=== PATIENT | female | born 1965 | race Caucasian/White ===

== ENCOUNTER 2016-11-11 00:13 | Emergency (ER) | payer OTHER ==
[2016-11-11 00:35] VITALS: BP 119/79; PULSE 88; RESP 18; TEMP 97.9
[2016-11-11] MEDS ORDERED: HYDROcodone/APAP 5-325MG 1 EACH TAB PO STA (00:59)
--- NOTE | 2016-11-11 00:59 | ED ---
Upper Extremity HPI - General Chief Complaint: Extremity Injury, Upper Stated Complaint: Hand Injury Time Seen by Provider: 11/11/16 00:37 Source: patient, RN notes reviewed Mode of arrival: ambulatory Limitations: no limitations - History of Present Illness Initial Comments: 51-year-old female presents emergency Department chief complaint right hand injury. Patient states that she was upset at home and she punched the door. Patient is right-hand dominant. Patient states that she's had no previous injuries. Patient states that it is very painful, bruised and swollen. Patient offers no other points. - Related Data Previous Rx's Medication Instructions Recorded Hydrocodone/Acetaminophen [Lorraine 1 tab PO Q6HR PRN #15 tab 11/11/16 5-325] Allergies Allergy/AdvReac Type Severity Reaction Status Date / Time Sulfa (Sulfonamide Allergy Unknown Verified 08/07/16 10:36 Antibiotics) steroids Allergy Unknown Uncoded 08/07/16 10:36 Review of Systems ROS Statement: Those systems with pertinent positive or pertinent negative responses have been documented in the HPI. ROS Other: All systems not noted in ROS Statement are negative. Past Medical History Past Medical History: No Reported History History of Any Multi-Drug Resistant Organisms: None Reported Past Surgical History: Appendectomy, Hysterectomy Past Psychological History: No Psychological Hx Reported Smoking Status: Current every day smoker Past Alcohol Use History: None Reported Past Drug Use History: None Reported General Exam Limitations: no limitations General appearance: alert, in no apparent distress Head exam: Present: atraumatic, normocephalic, normal inspection Respiratory exam: Present: normal lung sounds bilaterally. Absent: respiratory distress, wheezes, rales, rhonchi, stridor Cardiovascular Exam: Present: regular rate, normal rhythm, normal heart sounds. Absent: systolic murmur, diastolic murmur, rubs, gallop, clicks Extremities exam: Present: other (Right hand there is a large area of ecchymosis over the third fourth and fifth metacarpal there is some swelling patient has decreased range of motion of the fourth and fifth digit secondary to pain Reflux and 2 seconds there is no wrist tenderness radial pulses equal bilaterally 2+) Course Vital Signs 11/11/16 00:31 Temperature 97.9 F Pulse Rate 88 Respiratory 18 Rate Blood Pressure 119/79 O2 Sat by Pulse 100 Oximetry Procedures - Orthopedic Splinting/Casting Injury #1 Side: right Upper Extremity Injury Location: hand Upper Extremity Immobilizer: ulnar gutter (Short arm neurovascular intact before and after procedure) Medical Decision Making - Medical Decision Making 51-year-old female presented for right hand injury. X-rays reviewed shows fracture of the fifth metacarpal. Patient has a boxer's fracture. She was splinted and will follow-up with Dr. Barreto orthopedics. Disposition Clinical Impression: Boxers fracture Disposition: HOME SELF-CARE Condition: Stable Instructions: Boxer Fracture (ED) Additional Instructions: Please wear splint and follow-up with orthopedics as directed.Please return to the Emergency Department if symptoms worsen or any other concerns. Prescriptions: Hydrocodone/Acetaminophen [Lorraine 5-325] 1 tab PO Q6HR PRN #15 tab PRN Reason: Pain Referrals: None,Stated [Primary Care Provider] - 1-2 days Nitin Kelly MD [STAFF PHYSICIAN] - 1-2 days Time of Disposition: 00:58
--- NOTE | 2016-11-11 02:53 | XR ---
EXAMINATION TYPE: XR hand complete RT DATE OF EXAM: 11/11/2016 12:50 AM COMPARISON: NONE HISTORY: Right hand injury after punching a door TECHNIQUE: 3 radiographs of right hand were obtained. FINDINGS: There is evidence of acute slightly displaced fracture of neck of the right fifth metacarpa l bone, boxer's fracture with surrounding soft tissue swelling with volar angulation of distal fractu re fragment.. Mild degenerative arthritic changes are present in the right hand. IMPRESSION: 1. Acute slightly displaced fracture neck of right fifth metacarpal bone with surrounding soft tissue swelling.
== END 2016-11-11 01:12 | disposition home or self-care (01) ==
LOC: EC 00:13
DX: S62.336A Displaced fracture of neck of fifth metacarpal bone, right hand, initial encounter for closed fracture (principal); X83.8XXA Intentional self-harm by other specified means, initial encounter; F17.200 Nicotine dependence, unspecified, uncomplicated; Z88.2 Allergy status to sulfonamides; Z88.8 Allergy status to other drugs, medicaments and biological substances
CPT/HCPCS: 29125; 99283

== ENCOUNTER 2017-03-28 13:52 | Observation (INO) | payer OTHER ==
[2017-03-28] MEDS ORDERED: ASPIRIN 81 MG CHEW PO STA (13:59)
[2017-03-28] MEDS ORDERED: NITROGLYCERIN OINT 1 INCH/GM PACKET TOPICAL STA (13:59)
--- NOTE | 2017-03-28 14:02 | ED ---
General Adult HPI - General Stated complaint: Chest Pain Time Seen by Provider: 03/28/17 13:52 Source: RN notes reviewed - History of Present Illness Initial comments: This is a 51-year-old female who presents emergency Department with a history of smoking and cocaine use 2 weeks ago. Patient comes in today complaining that she has chest tightness and tingling in her chest and both her arms. Patient states this is been ongoing for a week. Patient doesn't seem to what makes it come or go. Patient states today it got worse and she almost passed out she actually fell to the ground but never actually passed out. Patient states a lot of people are telling her it's anxiety but she's never had anxiety before. Patient denies any palpitations. Patient denies any actual pain. Patient denies abdominal pain patient denies nausea vomiting diarrhea. Patient denies any recent fever chills or cough. Patient denies any injury with the fall today. - Related Data Home Medications Medication Instructions Recorded Confirmed Cyclobenzaprine [Flexeril] 10 mg PO BID PRN 03/28/17 03/28/17 Hydrocodone/Acetaminophen [[place] 1 tab PO TID PRN 03/28/17 03/28/17 10-325 Tablet] Ibuprofen [Motrin] 800 mg PO TID PRN 03/28/17 03/28/17 Allergies Allergy/AdvReac Type Severity Reaction Status Date / Time Sulfa (Sulfonamide Allergy Unknown Verified 03/28/17 15:21 Antibiotics) steroids Allergy Unknown Uncoded 03/28/17 13:56 Review of Systems ROS Statement: Those systems with pertinent positive or pertinent negative responses have been documented in the HPI. ROS Other: All systems not noted in ROS Statement are negative. Past Medical History Past Medical History: No Reported History History of Any Multi-Drug Resistant Organisms: None Reported Past Surgical History: Appendectomy, Hysterectomy Past Psychological History: No Psychological Hx Reported Smoking Status: Current every day smoker Past Alcohol Use History: None Reported Past Drug Use History: None Reported General Exam - General Exam Comments Initial Comments: GENERAL: Patient is well-developed and well-nourished. Patient is nontoxic and well- hydrated and is in mild distress. ENT: Neck is soft and supple. No significant lymphadenopathy is noted. Oropharynx is clear. Moist mucous membranes. Neck has full range of motion without eliciting any pain. EYES: The sclera were anicteric and conjunctiva were pink and moist. Extraocular movements were intact and pupils were equal round and reactive to light. Eyelids were unremarkable. PULMONARY: Unlabored respirations. Good breath sounds bilaterally. No audible rales rhonchi or wheezing was noted. CARDIOVASCULAR: There is a regular rate and rhythm without any murmurs gallops or rubs. ABDOMEN: Soft and nontender with normal bowel sounds. SKIN: Skin is clear with no lesions or rashes and otherwise unremarkable. NEUROLOGIC: Patient is alert and oriented x3. Cranial nerves II through XII are grossly intact. Motor and sensory are also intact. Normal speech, volume and content. Symmetrical smile. MUSCULOSKELETAL: Normal extremities with adequate strength and full range of motion. No lower extremity swelling or edema. No calf tenderness. LYMPHATICS: No significant lymphadenopathy is noted PSYCHIATRIC: Normal psychiatric evaluation. Normal interpersonal interactions appears functionally intact in deals appropriately with others. Mild anxiety Course Vital Signs 03/28/17 03/28/17 03/28/17 13:56 14:01 14:08 Temperature 98.1 F Pulse Rate 80 73 Pulse Rate [ 80 Sheet Layer ] Respiratory 18 18 Rate Blood Pressure 108/56 112/68 O2 Sat by Pulse 95 98 Oximetry 03/28/17 16:15 Temperature Pulse Rate 65 Pulse Rate [ Sheet Layer ] Respiratory 18 Rate Blood Pressure 108/63 O2 Sat by Pulse 96 Oximetry Medical Decision Making - Medical Decision Making EKG shows a normal sinus rhythm at 77 bpm TX interval is on a 62 QRS is 88 QT interval 410 QTC is 463. Patient's EKG shows no ST segment elevation or depression or T-wave abdomen is noted. Chest x-ray showed a possible nodule in the left lower lung CT did not see the same nodule and was clear. - Lab Data Result diagrams: 03/28/17 13:50 03/28/17 13:50 Lab Results 03/28/17 03/28/17 03/28/17 Range/Units 13:50 13:50 13:50 WBC 4.1 (3.8-10.6) k/uL RBC 4.10 (3.80-5.40) m/uL Hgb 12.9 (11.4-16.0) gm/dL Hct 37.8 (34.0-46.0) % MCV 92.2 (80.0-100.0) fL MCH 31.5 (25.0-35.0) pg MCHC 34.1 (31.0-37.0) g/dL RDW 13.0 (11.5-15.5) % Plt Count 227 (150-450) k/uL Neutrophils % 54 % Lymphocytes % 33 % Monocytes % 5 % Eosinophils % 5 % Basophils % 0 % Neutrophils # 2.2 (1.3-7.7) k/uL Lymphocytes # 1.4 (1.0-4.8) k/uL Monocytes # 0.2 (0-1.0) k/uL Eosinophils # 0.2 (0-0.7) k/uL Basophils # 0.0 (0-0.2) k/uL PT (9.0-12.0) sec INR (<1.1) APTT (22.0-30.0) sec D-Dimer (<0.60) mg/L FEU Sodium 142 (137-145) mmol/L Potassium 3.8 (3.5-5.1) mmol/L Chloride 113 H (98-107) mmol/L Carbon Dioxide 23 (22-30) mmol/L Anion Gap 6 mmol/L BUN 14 (7-17) mg/dL Creatinine 0.87 (0.52-1.04) mg/dL Est GFR (MDRD) Af Amer >60 (>60 ml/min/1.73 sqM) Est GFR (MDRD) Non-Af >60 (>60 ml/min/1.73 sqM) Glucose 112 H (74-99) mg/dL Calcium 9.4 (8.4-10.2) mg/dL Magnesium 1.9 (1.6-2.3) mg/dL Total Bilirubin 0.5 (0.2-1.3) mg/dL AST 18 (14-36) U/L ALT 20 (9-52) U/L Alkaline Phosphatase 113 (38-126) U/L Total Creatine Kinase 74 (30-135) U/L CK-MB (CK-2) 0.6 (0.0-2.4) ng/mL CK-MB (CK-2) Rel Index 0.8 Troponin I <0.012 (0.000-0.034) ng/mL Total Protein 6.0 L (6.3-8.2) g/dL Albumin 3.4 L (3.5-5.0) g/dL Urine Opiates Screen (NotDetected) Ur Oxycodone Screen (NotDetected) Urine Methadone Screen (NotDetected) Ur Propoxyphene Screen (NotDetected) Ur Barbiturates Screen (NotDetected) U Tricyclic Antidepress (NotDetected) Ur Phencyclidine Scrn (NotDetected) Ur Amphetamines Screen (NotDetected) U Methamphetamines Scrn (NotDetected) U Benzodiazepines Scrn (NotDetected) Urine Cocaine Screen (NotDetected) U Marijuana (THC) Screen (NotDetected) Hepatitis A IgM Ab NEGATIVE Hep Bs Antigen Negative Hep B Core IgM Ab NEGATIVE Hep C IgG Ab Negative (Negative) 03/28/17 03/28/17 Range/Units 13:50 14:30 WBC (3.8-10.6) k/uL RBC (3.80-5.40) m/uL Hgb (11.4-16.0) gm/dL Hct (34.0-46.0) % MCV (80.0-100.0) fL MCH (25.0-35.0) pg MCHC (31.0-37.0) g/dL RDW (11.5-15.5) % Plt Count (150-450) k/uL Neutrophils % % Lymphocytes % % Monocytes % % Eosinophils % % Basophils % % Neutrophils # (1.3-7.7) k/uL Lymphocytes # (1.0-4.8) k/uL Monocytes # (0-1.0) k/uL Eosinophils # (0-0.7) k/uL Basophils # (0-0.2) k/uL PT 10.4 (9.0-12.0) sec INR 1.0 (<1.1) APTT 29.4 (22.0-30.0) sec D-Dimer 0.42 (<0.60) mg/L FEU Sodium (137-145) mmol/L Potassium (3.5-5.1) mmol/L Chloride (98-107) mmol/L Carbon Dioxide (22-30) mmol/L Anion Gap mmol/L BUN (7-17) mg/dL Creatinine (0.52-1.04) mg/dL Est GFR (MDRD) Af Amer (>60 ml/min/1.73 sqM) Est GFR (MDRD) Non-Af (>60 ml/min/1.73 sqM) Glucose (74-99) mg/dL Calcium (8.4-10.2) mg/dL Magnesium (1.6-2.3) mg/dL Total Bilirubin (0.2-1.3) mg/dL AST (14-36) U/L ALT (9-52) U/L Alkaline Phosphatase (38-126) U/L Total Creatine Kinase (30-135) U/L CK-MB (CK-2) (0.0-2.4) ng/mL CK-MB (CK-2) Rel Index Troponin I (0.000-0.034) ng/mL Total Protein (6.3-8.2) g/dL Albumin (3.5-5.0) g/dL Urine Opiates Screen Not Detected (NotDetected) Ur Oxycodone Screen Not Detected (NotDetected) Urine Methadone Screen Not Detected (NotDetected) Ur Propoxyphene Screen Not Detected (NotDetected) Ur Barbiturates Screen Not Detected (NotDetected) U Tricyclic Antidepress Not Detected (NotDetected) Ur Phencyclidine Scrn Not Detected (NotDetected) Ur Amphetamines Screen Not Detected (NotDetected) U Methamphetamines Scrn Not Detected (NotDetected) U Benzodiazepines Scrn Not Detected (NotDetected) Urine Cocaine Screen Detected H (NotDetected) U Marijuana (THC) Screen Not Detected (NotDetected) Hepatitis A IgM Ab Hep Bs Antigen Hep B Core IgM Ab Hep C IgG Ab (Negative) Disposition Clinical Impression: Chest pain Disposition: ADMITTED IP TO THIS HOSP Referrals: None,Stated [Primary Care Provider] - 1-2 days Time of Disposition: 16:49
--- NOTE | 2017-03-28 14:38 | XR ---
EXAMINATION TYPE: XR chest 2V DATE OF EXAM: 03/28/2017 2:25 PM COMPARISON: 06/04/2016 HISTORY: Chest tightness TECHNIQUE: Frontal and lateral views of the chest are obtained. FINDINGS: There is no heart failure. There is a 1.5 cm poorly marginated rounded infiltrate in the r ight lower lobe. The other lung gordon are clear. There are no hilar masses. There are chest leads. M ediastinum is normal. There is no sign of pleural effusion. Bones appear osteopenic.. IMPRESSION: There is a new rounded infiltrate in the right lower lobe compared to last exam. Normal heart.
[2017-03-28 14:40] LABS: Basophils % (A) 0 %; CH 30.9; CHCM 33.7; Eosinophils # (A) 0.2 k/uL (0-0.7); Eosinophils % (A) 5 %; HCT 37.8 % (34.0-46.0); HDW 2.62; HGB 12.9 gm/dL (11.4-16.0); Luc # (Auto) 0.08; Luc % (Auto) 2; Lymphocytes # (A) 1.4 k/uL (1.0-4.8); Lymphocytes % (A) 33 %; MCH 31.5 pg (25.0-35.0); MCHC 34.1 g/dL (31.0-37.0); MCV 92.2 fL (80.0-100.0); Mean Platelet Volume 7.3; Monocytes # (A) 0.2 k/uL (0-1.0); Monocytes % (A) 5 %; Neutrophils # (A) 2.2 k/uL (1.3-7.7); Neutrophils % (A) 54 %; WBC 4.1 k/uL (3.8-10.6); WBC (Perox) 4.42
[2017-03-28 14:51] LABS: ALT 20 U/L (9-52); AST 18 U/L (14-36); Alkaline Phosphatase 113 U/L (38-126); Anion Gap 6 mmol/L; Blood Urea Nitrogen 14 mg/dL (7-17); Calcium 9.4 mg/dL (8.4-10.2); Carbon Dioxide 23 mmol/L (22-30); Chloride 113 mmol/L (98-107); Glucose 112 mg/dL (74-99); Magnesium 1.9 mg/dL (1.6-2.3); Non-African American GFR(MDRD) >60 (>60 ml/min/1.73 sqM); Partial Thromboplastin Time 29.4 sec (22.0-30.0); Potassium 3.8 mmol/L (3.5-5.1); Prothrombin Time 10.4 sec (9.0-12.0); Sodium 142 mmol/L (137-145); Total Bilirubin 0.5 mg/dL (0.2-1.3)
[2017-03-28 15:05] LABS: Creatine Kinase 74 U/L (30-135)
[2017-03-28 15:18] LABS: Creatine Kinase MB 0.6 ng/mL (0.0-2.4); Troponin I <0.012 ng/mL (0.000-0.034)
[2017-03-28 15:19] LABS: Hepatitis B Surface Ag Index 0.08
[2017-03-28 15:24] LABS: Hepatitis B Core IgM Index 0.09
[2017-03-28 15:36] LABS: Hepatitis C Virus IgG Ab Negative (Negative); Hepatitis C Virus IgG Index 0.04
[2017-03-28] MEDS ORDERED: RX INFO: IV CONTRAST WAS GIVEN 1 EACH MISC MISCELLANE PRN (15:55)
--- NOTE | 2017-03-28 16:30 | CT ---
EXAMINATION TYPE: CT chest w con DATE OF EXAM: 03/28/2017 4:23 PM COMPARISON: NONE HISTORY: Abnormal CXR CT DLP: 165.6 mGycm Automated exposure control for dose reduction was used. CONTRAST: CT scan of the chest is performed with IV Contrast, patient injected with 100 mL of Omnipaque 300. FINDINGS: The lungs are clear of consolidation. There is no evidence of a pulmonary mass. There is no mediastin al adenopathy. There are no hilar masses. Thoracic aorta appears normal. There is no sign of aneurysm or dissection. There is no pleural effusion. There is mild interstitial density at the posterior melany g bases. There is no adrenal mass. Gallbladder is contracted. IMPRESSION: Minimal scarring or subsegmental atelectasis at the posterior lung bases. No evidence of a pulmonary nodule or mass. I do not see a cause for the right lower lobe density seen on the chest x-ray today.
[2017-03-28] MEDS ORDERED: NICOTINE 21MG/24HR PATCH TRANSDERM STA (16:43)
[2017-03-28] MEDS ORDERED: LORazepam 2 MG/ML SYRINGE IV STA (16:43)
[2017-03-28] MEDS ORDERED: NITROGLYCERIN SL TABS 0.4 MG TAB SUBLINGUAL PRN (17:04)
[2017-03-28] MEDS ORDERED: CYCLOBENZAPRINE 10 MG TAB PO PRN (19:04)
[2017-03-28] MEDS ORDERED: MORPHINE SULFATE 2 MG/ML SYRINGE IVP PRN (19:07)
[2017-03-28 19:32] VITALS: BMI 26.8
[2017-03-28] MEDS: NITROGLYCERIN OINT 1 INCH/GM PACKET TOPICAL SCH ×2 (19:44→23:45)
[2017-03-28 20:08] VITALS: RESP 16
[2017-03-28 20:39] LABS: Creatine Kinase 60 U/L (30-135)
[2017-03-28 20:51] LABS: Creatine Kinase MB 0.7 ng/mL (0.0-2.4); Troponin I <0.012 ng/mL (0.000-0.034)
[2017-03-28] MEDS: HYDROcodone/APAP 10-325MG 1 EACH TAB PO PRN (23:43)
[2017-03-29 03:04] LABS: Creatine Kinase 54 U/L (30-135)
[2017-03-29 03:16] LABS: Creatine Kinase MB 0.6 ng/mL (0.0-2.4); Troponin I <0.012 ng/mL (0.000-0.034)
[2017-03-29] MEDS: NITROGLYCERIN OINT 1 INCH/GM PACKET TOPICAL SCH ×2 (05:28→14:10)
[2017-03-29 06:48] LABS: Cholesterol 177 mg/dL (<200); HDL Cholesterol 71 mg/dL (40-60); Triglycerides 60 mg/dL (<150)
[2017-03-29] MEDS ORDERED: DOBUTamine DRIP for NUC MED 500 MG in DEXTROSE/WATER 1 250ML.BAG IV ONE (08:00)
--- NOTE | 2017-03-29 08:06 | CONS ---
DATE OF CONSULTATION: CHIEF COMPLAINT: Chest pain. HISTORY OF PRESENT ILLNESS: This is a 51-year-old lady with history of cocaine abuse who comes to the hospital complaining of chest pain. She describes it as a chest pressure without definite radiation to neck, arm or back unassociated with diaphoresis and unrelated to exertion. She is not quite sure when she last used cocaine. She initially states 2 weeks ago and subsequently she said a week ago. Her urine cocaine is positive. Past medical history is negative for hypertension, diabetes, dyslipidemia, coronary artery disease. Medications at home include: 1. [place]. 2. Flexeril. 3. Motrin. Patient has chronic back pain. SHE IS ALLERGIC TO SULFA AND STEROIDS. Family history is negative for premature coronary artery disease. SOCIAL HISTORY: Significant for smoking and drug abuse. REVIEW OF SYSTEMS: HEENT: Unremarkable. CARDIAC: As described above. RESPIRATORY: Negative. GI: Negative. GENITOURINARY: Negative. Allergy/immunology: Negative. SKIN: Negative. MUSCULOSKELETAL: Significant for arthritis. PSYCHOSOCIAL: Negative. ENDOCRINE: Negative. DERM: Negative. CONSTITUTIONAL: Negative. Oncological: Negative. The rest of the system review is not relevant. On exam, comfortable at rest. Vital signs are stable. There is no jugular venous distention. Carotid upstroke is normal. There is no bruit. Chest is clear to auscultation and percussion. Heart exam reveals first and second heart sounds. No gallop. No murmur, no rub. ABDOMEN: Soft, nontender. Exam of the extremities did not reveal edema. Peripheral pulses are felt. STAFF RADIOLOGIST exam did not reveal focal neurological deficits. Labs show a hemoglobin of 12.9, platelet count is 227. D-dimer is 0.4. Creatinine is 0.87. Three sets of tropes are negative. ASSESSMENT: Precordial chest pain, atypical, probably related to cocaine use. Myocardial infarction is ruled out. EKG does not reveal acute ischemic changes. CT scan of the chest is negative for pulmonary mass. PLAN: I am going to obtain a dobutamine echocardiogram and if this is negative, I am going to discharge her home and advise her to stop using drugs.
[2017-03-29] MEDS ORDERED: ASPIRIN 325 MG TAB PO SCH (09:00)
[2017-03-29] MEDS ORDERED: ATROPINE SULFATE 0.1 MG/ML 10ML SYRINGE ONE (09:53)
[2017-03-29] MEDS ORDERED: METOPROLOL TARTRATE 5 MG/5 ML VIAL IVP ONE (09:53)
[2017-03-29] MEDS: HYDROcodone/APAP 10-325MG 1 EACH TAB PO PRN (10:10)
--- NOTE | 2017-03-29 10:53 | ECHOF ---
Referral Reason: MEASUREMENTS -------- HEIGHT: 165.1 cm WEIGHT: 73.0 kg BP: IVSd: 1.1 cm (0.6 - 1.1) LVIDd: 3.7 cm (3.9 - 5.3) LVPWd: 1.1 cm (0.6 - 1.1) IVSs: 1.6 cm LVIDs: 2.0 cm LVPWs: 1.4 cm Ao Diam: 2.8 cm (2.0 - 3.7) AV Cusp: 1.6 cm (1.5 - 2.6) LA Diam: 3.2 cm (2.7 - 3.8) MV EXCURSION: 11.800 mm (> 18.000) MV EF SLOPE: 79 mm/s (70 - 150) EPSS: 0.5 cm MV E Randy: 0.68 m/s MV DecT: 168 ms MV A Randy: 0.64 m/s MV E/A Ratio: 1.06 RAP: 5.00 mmHg RVSP: 19.38 mmHg FINDINGS -------- Sinus rhythm. This was a technically good study. Left ventricular wall thickness is normal. Overall left ventricular systolic function is normal with, an EF between 55 - 60 %. The right ventricle is normal in size and function. The left atrium is normal in size. The right atrium is normal in size. The aortic valve is trileaflet, and appears structurally normal. No aortic stenosis or regurgitation. The mitral valve leaflets are mildly thickened. There is trace mitral regurgitation. Trace tricuspid regurgitation present. The right ventricular systolic pressure, as measured by Doppler, is 19.38mmHg. Pulmonic valve appears structurally normal. The aortic root size is normal. The pericardium is normal. CONCLUSIONS -------- 1. Sinus rhythm. 2. There is trace mitral regurgitation. 3. Trace tricuspid regurgitation present. 4. The right ventricular systolic pressure, as measured by Doppler, is 19.38mmHg. 5. Pulmonic valve appears structurally normal. 6. The aortic root size is normal. 7. The pericardium is normal. 8. This was a technically good study. 9. Left ventricular wall thickness is normal. 10. Overall left ventricular systolic function is normal with, an EF between 55 - 60 %. 11. The right ventricle is normal in size and function. 12. The left atrium is normal in size. 13. The right atrium is normal in size. 14. The aortic valve is trileaflet, and appears structurally normal. No aortic stenosis or regurgitation. 15. The mitral valve leaflets are mildly thickened. DRAIN TILE PRESS OPERATOR: Yris Baker RDCS
--- NOTE | 2017-03-29 11:03 | ECHOS ---
DATE OF SERVICE: 03/29/2017 AGE: 51Y SEX: F HT: 65" WT: 161 lbs. Protocol Fernando: Others: Stress Dobutamine Echo Stage: 3 Dur. of Exercise: 6:30 *Heart Rate Blood Pressure *Rest: 73 Rest: 92/67 * *Max. Achieved: 157 Maximum BP: 128/64 85% PMHR: 143 100% PMHR: 168 *METS: - INDICATIONS: Chest pain. MEDICATIONS: Flexeril, Motrin, Vicodin. STRESS DATA: Pretesting physical examination showed the heart rate of 73, pressure is 92/67 mmHg. Baseline EKG showed sinus mechanism. Dobutamine infusion, at a dose of 10 mcg/kg per minute was initiated and increased to 29 kg/min. The patient achieved a max heart rate of 157, which is about 93% of maximum predicted heart rate. Maximum blood pressure was 128/64 mmHg. Clinically, the patient did not have any symptoms of chest pain or discomfort during the testing or in the recovery time. The EKG did not show any significant ST or T-wave abnormalities consistent with ischemia. ECHOCARDIOGRAM IMAGES: On echocardiogram images from parasternal long axis view, parasternal short axis view, apical 4 chamber and apical 2 chamber view were obtained as the baseline images, at the peak of the heart rate, as well as on recovery and the echocardiogram images showed good augmentation in the left ventricular systolic function. CONCLUSION: 1. Normal EKG in response to dobutamine. 2. Normal echocardiogram in response to dobutamine.
[2017-03-29 11:23] VITALS: BP 119/87; PULSE 74; TEMP 97.9
--- NOTE | 2017-03-29 19:12 | HP ---
DATE OF ADMISSION: 03/28/2017 This dictation is both H&P and discharge summary. HISTORY AND PHYSICAL EXAMINATION/DISCHARGE SUMMARY: 51-year-old came in with complaints of chest pain across the chest. Patient did use cocaine about 4 days ago before this onset of these symptoms probably not related to cocaine and associated with diaphoresis and lightheadedness and patient was not doing anything, nonexertional chest pain, nonpleuritic in nature, not associated with food. D-dimer is negative. Chest x-ray did not show any pneumonic process. The patient is a smoker. Quit smoking recently. Has been doing well regarding that. Patient has been coughing since she quit smoking. The patient denied any fever, chills. Patient underwent stress test which was negative. Patient was ruled out acute coronary artery syndrome and patient has reproducible chest pain, probably musculoskeletal in nature. CT of the chest did not show any significant abnormality, d-dimer is negative. Chest pain is nonpleuritic in nature. REVIEW OF SYSTEMS: CONSTITUTIONAL: No fever, no malaise, no fatigue. HEENT: No recent visual problems or hearing problems. Denied any sore throat. CARDIOVASCULAR: as described in HPI. PULMONARY: No shortness of breath, no cough, no hemoptysis. GASTROINTESTINAL: No diarrhea, no nausea, no vomiting, no abdominal pain. Normoactive bowel sounds. NEUROLOGICAL: No headaches, no weakness, no numbness. HEMATOLOGICAL: Denies any bleeding or petechiae. GENITOURINARY: Denies any burning micturition, frequency, or urgency. MUSCULOSKELETAL/RHEUMATOLOGICAL: Denies any joint pain, swelling, or any muscle pain. ENDOCRINE: Denies any polyuria or polydipsia. The rest of the 14 point review of systems is negative. PAST MEDICAL HISTORY: Appendectomy, hysterectomy. Patient does not take any medications at home. SOCIAL HISTORY: The patient does smoke. Quit smoking recently she says. Denied any alcohol abuse. Recent use of cocaine. Denied any IV drug use. PHYSICAL EXAMINATION: Temperature 97.9, pulse of 74, respiratory rate of 16, blood pressure 118/87, saturating at 98% on room air. GENERAL: The patient is alert and oriented x3, not in any acute distress. Well developed, well nourished. HEENT: Pupils are round and equally reacting to light. EOMI. No scleral icterus. No conjunctival pallor. Normocephalic, atraumatic. No pharyngeal erythema. No thyromegaly. CARDIOVASCULAR: S1 and S2 present. No murmurs, rubs, or gallops. PULMONARY: Chest is clear to auscultation, no wheezing or crackles. ABDOMEN: Soft, nontender, nondistended, normoactive bowel sounds. No palpable organomegaly. MUSCULOSKELETAL: No joint swelling or deformity. EXTREMITIES: No cyanosis, clubbing, or pedal edema. NEUROLOGICAL: Gross neurological examination did not reveal any focal deficits. SKIN: No rashes. LABORATORY DATA: CBC, CMP, essentially within normal limits. LDL is not elevated. CT of the chest echocardiogram x-ray was reviewed. No significant abnormality. ASSESSMENT AND PLAN: 1. Chest pain, musculoskeletal in nature, ruled out acute coronary syndrome. Stress test is negative. 2. Cocaine use. Counseling was provided. 3. Chronic low back pain for which patient is already on ibuprofen, hydrocodone and cyclobenzaprine. 4. I do not believe patient has gastroesophageal reflux disease or gastritis. Patient is otherwise clinically doing well and will be discharged today. Will be referred to Dr. Jean Marie Mcdonald to follow up with him in about a week. Activity as tolerated. Regular diet. This dictation is both H&P and discharge summary.
== END 2017-03-29 14:04 | disposition home or self-care (01) ==
LOC: EC 13:52 → 3OBS 17:04
PROVIDERS: ADMIT Internal Medicine; ATTEND Internal Medicine
DX: R07.89 Other chest pain (principal); R07.2 Precordial pain; F14.90 Cocaine use, unspecified, uncomplicated; G89.29 Other chronic pain; F17.200 Nicotine dependence, unspecified, uncomplicated; M54.5 Low back pain; Z88.2 Allergy status to sulfonamides; Z88.8 Allergy status to other drugs, medicaments and biological substances
CPT/HCPCS: 99285; 96374; 96375; 36415; 93005; 93017; 93306; 93350; 85379; 80061; 80053; 80074; 82550 ×2; 82553 ×2; 83735; 84484 ×2; 85025; 85610; 85730; 80306; 71020; 71260; G0378 ×2; S4990; J2060; J1250; J0461; J2270; Q9967

== ENCOUNTER 2018-07-21 13:27 | Emergency (ER) | payer OTHER ==
[2018-07-21 13:31] VITALS: BP 164/89; PULSE 87; RESP 20; TEMP 97.9
[2018-07-21] MEDS ORDERED: ACET/COD 300 MG/30 MG STARTER PACK 6 TAB BTL PO STA (13:42)
[2018-07-21] MEDS ORDERED: KETOROLAC 60 MG/2 ML VIAL IM STA (13:42)
[2018-07-21] MEDS ORDERED: DIAZEPAM 5 MG/ML 2 ML INJ IM STA (13:42)
--- NOTE | 2018-07-21 13:48 | ED ---
Back Pain HPI - General Chief Complaint: Back Pain/Injury Stated Complaint: back pain Time Seen by Provider: 07/21/18 13:32 Source: patient, RN notes reviewed Mode of arrival: ambulatory Limitations: no limitations - History of Present Illness Initial Comments: This a 52-year-old female presents emergency Department chief complaint left low back pain. Patient states she has a history of degenerative disc disease, bulging disc. Patient states that her plan is to go to [facility] in [place]. Patient states that over the last 2-3 days that she's been having worsening symptoms. She states it started after going down some steps and lifting some objects. She denies any bowel incontinence or bladder retention. She has no abdominal pain denies fever or chills. She states pain rates on her left leg has no paresthesias or saddle anesthesias. She states certain positional changes can improve or worsen her symptoms. She states that she has no lower extremity weakness. - Related Data Home Medications Medication Instructions Recorded Confirmed Airborne Packet's 1 packet PO DAILY PRN 08/23/17 08/23/17 Albuterol Inhaler [Ventolin Hfa 2 puff INHALATION RT-Q6H PRN 08/23/17 08/23/17 Inhaler] Ascorbic Acid/Multivit-Min 1,000 mg PO DAILY PRN 08/23/17 08/23/17 [Emergen-C 1,000 mg Packet] Previous Rx's Medication Instructions Recorded Ibuprofen [Motrin] 600 mg PO Q6HR PRN #20 tab 08/23/17 traMADol HCl [Ultram] 50 mg PO Q6H PRN #20 tab 08/23/17 Ibuprofen [Motrin] 600 mg PO Q8HR PRN #30 tab 07/21/18 Orphenadrine [Norflex] 100 mg PO Q12H #14 tablet.er 07/21/18 Allergies Allergy/AdvReac Type Severity Reaction Status Date / Time Sulfa (Sulfonamide Allergy Anaphylaxis Verified 07/21/18 13:31 Antibiotics) steroids AdvReac Confusion Uncoded 07/21/18 13:31 Review of Systems ROS Statement: Those systems with pertinent positive or pertinent negative responses have been documented in the HPI. ROS Other: All systems not noted in ROS Statement are negative. 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, one functioning kidney History of Any Multi-Drug Resistant Organisms: None Reported Past Surgical History: Appendectomy, Hysterectomy Additional Past Surgical History / Comment(s): corn removal Past Anesthesia/Blood Transfusion Reactions: No Reported Reaction Past Psychological History: No Psychological Hx Reported Smoking Status: Current every day smoker Past Alcohol Use History: None Reported Past Drug Use History: Cocaine - Past Family History Mother Sister(s) Family Medical History: Cancer, CVA/TIA Additional Family Medical History / Comment(s): cervicle Father Family Medical History: Coronary Artery Disease (CAD) General Exam Limitations: no limitations General appearance: alert, in no apparent distress Neck exam: Present: normal inspection, full ROM. Absent: tenderness, meningismus, lymphadenopathy Respiratory exam: Present: normal lung sounds bilaterally. Absent: respiratory distress, wheezes, rales, rhonchi, stridor Cardiovascular Exam: Present: regular rate, normal rhythm, normal heart sounds. Absent: systolic murmur, diastolic murmur, rubs, gallop, clicks GI/Abdominal exam: Present: soft, normal bowel sounds. Absent: distended, tenderness, guarding, rebound, rigid Extremities exam: Present: other (Lower extremity strength equal bilaterally, neurovascular intact equal color equal warmth) Back exam: Present: normal inspection, full ROM (Mild discomfort), paraspinal tenderness, other (Pain with left straight leg raise). Absent: vertebral tenderness Neurological exam: Present: alert, oriented X3, CN II-XII intact Skin exam: Present: warm, dry, intact, normal color. Absent: rash Course Vital Signs 07/21/18 13:29 Temperature 97.9 F Pulse Rate 87 Respiratory 20 Rate Blood Pressure 164/89 O2 Sat by Pulse 98 Oximetry Medical Decision Making - Medical Decision Making 52-year-old female presented from for low back pain. Patient is chronic low back issues and has lumbar related His Symptoms. Patient has no red flag symptoms and no lower extremity weakness. Patient will be given Toradol, Valium in the emergency department. Patient will continue ibuprofen and Norflex at home. Disposition Clinical Impression: Lumbar radiculopathy Disposition: HOME SELF-CARE Condition: Stable Instructions: Acute Low Back Pain (ED) Additional Instructions: Please return to the Emergency Department if symptoms worsen or any other concerns. Prescriptions: Ibuprofen [Motrin] 600 mg PO Q8HR PRN #30 tab PRN Reason: Pain Orphenadrine [Norflex] 100 mg PO Q12H #14 tablet.er Is patient prescribed a controlled substance at d/c from ED?: No Referrals: None,Stated [Primary Care Provider] - 1-2 days Time of Disposition: 13:48
== END 2018-07-21 14:08 | disposition home or self-care (01) ==
LOC: EC 13:27
DX: M54.16 Radiculopathy, lumbar region (principal); Z85.820 Personal history of malignant melanoma of skin; F17.200 Nicotine dependence, unspecified, uncomplicated; Z79.899 Other long term (current) drug therapy; Z88.2 Allergy status to sulfonamides; Z88.8 Allergy status to other drugs, medicaments and biological substances
CPT/HCPCS: 99283; 96372 ×2; J3360; J1885

== ENCOUNTER 2018-08-07 20:57 | Emergency (ER) | payer OTHER ==
[2018-08-07 21:10] VITALS: BP 158/69; RESP 20; TEMP 98
[2018-08-07] MEDS ORDERED: ALBUTEROL NEBULIZED 2.5 MG/3 ML INHALATION STA (22:01)
--- NOTE | 2018-08-07 22:05 | ED ---
General Adult HPI - General Source: patient, RN notes reviewed Mode of arrival: ambulatory Limitations: no limitations <Florecita Torres - Last Filed: 08/07/18 22:33> <Felisha Waldrop - Last Filed: 08/08/18 03:02> - General Chief complaint: Upper Respiratory Infection Stated complaint: congestion Time Seen by Provider: 08/07/18 21:51 - History of Present Illness Initial comments: This is a 52-year-old female with history of COPD who presents to the emergency department with chief complaint of cough. Patient states that she has had a cough productive of green sputum for the past one week. She states that she feels she has pneumonia as she has had in the past. She reports having some shortness of breath over the past 2 days. Patient states that she is a current , every day smoker, however has not been smoking since symptom onset. She also reports a runny nose and sore throat. Denies abdominal pain, nausea or vomiting , diarrhea. She does state that she has been alternating between feeling hot and cold but denies any documented fevers. (Florecita Torres) - Related Data Previous Rx's Medication Instructions Recorded Ibuprofen [Motrin] 600 mg PO Q8HR PRN #30 tab 07/21/18 Orphenadrine [Norflex] 100 mg PO Q12H #14 tablet.er 07/21/18 Albuterol Inhaler [Ventolin Hfa 1 - 2 puff INHALATION RT-Q6H #1 08/07/18 Inhaler] inhaler Azithromycin [Zithromax Z-pack] 0 mg PO DIRECTED #6 tab 08/07/18 Allergies Allergy/AdvReac Type Severity Reaction Status Date / Time Sulfa (Sulfonamide Allergy Anaphylaxis Verified 08/07/18 21:10 Antibiotics) steroids AdvReac Confusion/a Uncoded 08/07/18 21:10 ggressive Review of Systems ROS Other: All systems not noted in ROS Statement are negative. <Florecita Torres - Last Filed: 08/07/18 22:33> ROS Other: All systems not noted in ROS Statement are negative. <Felisha Waldrop - Last Filed: 08/08/18 03:02> ROS Statement: Those systems with pertinent positive or pertinent negative responses have been documented in the HPI. 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, one functioning kidney History of Any Multi-Drug Resistant Organisms: None Reported Past Surgical History: Appendectomy, Hysterectomy Additional Past Surgical History / Comment(s): corn removal Past Anesthesia/Blood Transfusion Reactions: No Reported Reaction Past Psychological History: No Psychological Hx Reported Smoking Status: Current every day smoker Past Alcohol Use History: Occasional Past Drug Use History: Cocaine - Past Family History Mother Sister(s) Family Medical History: Cancer, CVA/TIA Additional Family Medical History / Comment(s): cervicle Father Family Medical History: Coronary Artery Disease (CAD) <Florecita Torres - Last Filed: 08/07/18 22:33> General Exam Limitations: no limitations <Florecita Torres - Last Filed: 08/07/18 22:33> <Felisha Waldrop - Last Filed: 08/08/18 03:02> - General Exam Comments Initial Comments: General: Awake and alert, well-developed; in no apparent distress. Persistent, hacking cough. HEENT: Head atraumatic, normocephalic. Pupils are equal, round and reactive to light. Extraocular movements intact. Oropharynx moist without erythema or exudate. Neck: Supple. Normal ROM. Cardiovascular: Regular rate and rhythm. No murmurs, rubs or gallops. Chest symmetrical. Respiratory: Lungs clear to auscultation bilaterally. No wheezes, rales or rhonchi. Normal respiratory effort with no use of accessory muscles. Musculoskeletal: Normal ROM, no tenderness bilateral upper and lower extremities. Ambulating normally. Skin: Morales-Sanchez, warm and dry without rashes or lesions. Neurological: Alert and oriented x3. CN II-XII grossly intact. Speech is fluent and answers are appropriate. No focal neuro deficits. Psychiatric: Normal mood and affect. No overt signs of depression or anxiety noted. (Florecita Torres) Vital Signs 08/07/18 08/07/18 08/07/18 21:08 22:18 22:28 Temperature 98 F Pulse Rate 71 72 72 Respiratory 20 Rate Blood Pressure 158/69 O2 Sat by Pulse 95 Oximetry Medical Decision Making - Radiology Data Radiology results: report reviewed, image reviewed <Florecita Torres - Last Filed: 08/07/18 22:33> <Felisha Waldrop - Last Filed: 08/08/18 03:02> - Medical Decision Making This is a 52-year-old female with history of COPD who presents to the emergency department with chief complaint of cough. Patient reports a cough productive of green sputum for one week. On physical examination, lungs are clear to auscultation bilaterally. Patient does have a persistent, hacking cough. Vital signs are stable. Patient will be treated outpatient for a COPD exacerbation. Patient reports an ALLERGY to steroids. She will be started on azithromycin and given an albuterol inhaler. She is in agreement with plan and voices understanding. She will be discharged home at this time. All questions were answered. (Florecita Torres) I was available for consultation in the emergency department. The history and physical exam were done by the midlevel provider. I was consulted for this patient's care. I reviewed the case with the midlevel provider and based on their presentation of the patient, I agree with the assessment, medical decision making and plan of care as documented. (Felisha Waldrop) - Radiology Data Chest x-ray impression: Normal chest. No change. (Florecita Torres) Disposition Is patient prescribed a controlled substance at d/c from ED?: No Time of Disposition: 22:35 <Florecita Torres - Last Filed: 08/07/18 22:33> <Felisha Waldrop - Last Filed: 08/08/18 03:02> Clinical Impression: COPD exacerbation Disposition: HOME SELF-CARE Condition: Good Instructions: COPD (Chronic Obstructive Pulmonary Disease) (ED) Additional Instructions: Please take medications as prescribed. Please follow up with primary care provider within 1-2 days. Return to emergency department if symptoms should worsen or any concerns arise. Prescriptions: Albuterol Inhaler [Ventolin Hfa Inhaler] 1 - 2 puff INHALATION RT-Q6H #1 inhaler Azithromycin [Zithromax Z-pack] 0 mg PO DIRECTED #6 tab Referrals: None,Stated [Primary Care Provider] - 1-2 days
--- NOTE | 2018-08-07 22:18 | XR ---
EXAMINATION TYPE: XR chest 2V DATE OF EXAM: 08/07/2018 COMPARISON: 03/28/2017 HISTORY: Chest pain TECHNIQUE: Frontal and lateral views of the chest are obtained. FINDINGS: Heart and mediastinum are normal. Lungs are clear. Diaphragm is normal. Bony thorax is int act. IMPRESSION: Normal chest. No change.
[2018-08-07 22:22] VITALS: PULSE 72
== END 2018-08-07 22:55 | disposition home or self-care (01) ==
LOC: EC 20:57
DX: J44.1 Chronic obstructive pulmonary disease with (acute) exacerbation (principal); F17.200 Nicotine dependence, unspecified, uncomplicated; Z88.2 Allergy status to sulfonamides; Z88.8 Allergy status to other drugs, medicaments and biological substances; Z85.820 Personal history of malignant melanoma of skin
CPT/HCPCS: 71046; 94640; 99283

== ENCOUNTER 2018-10-12 14:23 | Emergency (ER) | payer OTHER ==
[2018-10-12 14:38] VITALS: BP 121/82; PULSE 103; RESP 22; TEMP 98.1
--- NOTE | 2018-10-12 15:12 | XR ---
EXAMINATION TYPE: XR chest 2V DATE OF EXAM: 10/12/2018 COMPARISON: Chest CT March 28, 2017. Chest x-ray August 07, 2018. HISTORY: Cough shortness of breath and chest pain. TECHNIQUE: Frontal and lateral views of the chest are obtained. FINDINGS: There is chronic emphysematous change without suspicious focal air space opacity, pleural effusion, or pneumothorax seen. The cardiac silhouette size is within normal limits. The osseous s tructures are demineralized. Metallic right nipple ornament is redemonstrated. IMPRESSION: Some chronic parenchymal change without acute pulmonary process.
--- NOTE | 2018-10-12 16:02 | ED ---
General Adult HPI - General Chief complaint: Upper Respiratory Infection Stated complaint: poss pneumonia Time Seen by Provider: 10/12/18 14:42 Source: patient, RN notes reviewed Mode of arrival: ambulatory Limitations: no limitations - History of Present Illness Initial comments: Patient 52-year-old female presented to the emergency room today with a chief complaint of cough congestion over the last 3 days. She does admit that she's had sputum production. She does admit that she's been coughing and having difficult time controlling the cough. She states that her chest hurts that she' s been coughing so much. She states only having chest pain with the cough. Patient denies any other complaints. Patient denied any past medical history. States she does not go to doctors. Patient does admit that she has had some chills. Denies any recorded fever. Patient denied any other complaints or symptoms. Patient denies any chills, shortness of breath, back pain, abdominal pain, nausea or vomiting, numbness or tingling, headaches or visual changes, or any other complaints. - Related Data Home Medications Medication Instructions Recorded Confirmed Albuterol Inhaler [Ventolin Hfa 1 - 2 puff INHALATION RT-BID PRN 10/12/18 Inhaler] Ibuprofen [Motrin Ib] 400 mg PO Q6H PRN 10/12/18 10/12/18 Allergies Allergy/AdvReac Type Severity Reaction Status Date / Time Sulfa (Sulfonamide Allergy Anaphylaxis Verified 10/12/18 15:21 Antibiotics) steroids AdvReac Confusion/a Uncoded 10/12/18 14:38 ggressive Review of Systems ROS Statement: Those systems with pertinent positive or pertinent negative responses have been documented in the HPI. ROS Other: All systems not noted in ROS Statement are negative. 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, one functioning kidney History of Any Multi-Drug Resistant Organisms: None Reported Past Surgical History: Appendectomy, Hysterectomy Additional Past Surgical History / Comment(s): corn removal Past Anesthesia/Blood Transfusion Reactions: No Reported Reaction Past Psychological History: No Psychological Hx Reported Smoking Status: Current every day smoker Past Alcohol Use History: Occasional Past Drug Use History: Cocaine - Past Family History Mother Sister(s) Family Medical History: Cancer, CVA/TIA Additional Family Medical History / Comment(s): cervicle Father Family Medical History: Coronary Artery Disease (CAD) General Exam - General Exam Comments Initial Comments: General: The patient is awake and alert, in no distress, and does not appear acutely ill. Eye: There is normal conjunctiva bilaterally. No signs of icterus. Ears, nose, mouth and throat: There are moist mucous membranes and no oral lesions. Neck: The neck is supple, there is no tenderness or JVD. Cardiovascular: There is a regular rate and rhythm. No murmur, rub or gallop is appreciated. Respiratory: Lungs are clear to auscultation, respirations are non-labored, breath sounds are equal. No wheezes, stridor, rales, or rhonchi. Musculoskeletal: Normal ROM, no tenderness. Sensation intact. Radial/pedal pulses equal bilaterally 2+. Neurological: A&O x 3. CN II-XII intact, There are no obvious motor or sensory deficits. Coordination appears grossly intact. Speech is normal. Skin: Skin is warm and dry and no rashes or lesions are noted. Psychiatric: Cooperative, appropriate mood & affect, normal judgment. Limitations: no limitations Course Vital Signs 10/12/18 14:35 Temperature 98.1 F Pulse Rate 103 H Respiratory 22 Rate Blood Pressure 121/82 O2 Sat by Pulse 99 Oximetry - Reevaluation(s) Reevaluation #1: 10/12/18 14:52 It was discussed with the patient about further evaluation with blood work. She has declined this currently. She states she would like to start with a chest x-ray. Chest x-ray ordered and pending. Medical Decision Making - Medical Decision Making Patient is a 52-year-old female presenting for cough congestion and sputum production over the last 3 days. Patient left prior to results of chest x-ray. She told nursing staff that someone was breaking into her house and police were called and she needed to go. Patient's chest x-ray was negative for any acute abnormalities. Was discussed with patient while she was here in the emergency room about blood work and she had declined. Disposition Clinical Impression: Cough Disposition: Left Against Medical Advice Condition: Stable Is patient prescribed a controlled substance at d/c from ED?: No Referrals: None,Stated [Primary Care Provider] - 1-2 days
== END 2018-10-12 15:45 | disposition left against medical advice (07) ==
LOC: EC 14:23
DX: R05 Cough (principal); R09.89 Other specified symptoms and signs involving the circulatory and respiratory systems; R68.83 Chills (without fever); F17.200 Nicotine dependence, unspecified, uncomplicated; Z88.2 Allergy status to sulfonamides; Z88.8 Allergy status to other drugs, medicaments and biological substances; Z85.820 Personal history of malignant melanoma of skin; Z98.890 Other specified postprocedural states
CPT/HCPCS: 71046; 99283

== ENCOUNTER 2020-05-23 02:05 | Emergency (ER) | payer OTHER ==
[2020-05-23 02:13] VITALS: RESP 18
[2020-05-23] MEDS ORDERED: LIDOCAINE 1% INJ 10MG/ML (20 ML MDV) SQ ONE (02:33)
[2020-05-23] MEDS ORDERED: CLINDAMYCIN 150 MG CAP PO STA (02:33)
[2020-05-23] MEDS ORDERED: KETOROLAC 30 MG/ML 1 ML VIAL IM STA (02:33)
--- NOTE | 2020-05-23 02:57 | ED ---
Skin/Abscess/FB HPI - General Chief complaint: Skin/Abscess/Foreign Body Stated complaint: Finger Abscess Time Seen by Provider: 05/23/20 02:20 Source: patient Mode of arrival: ambulatory Limitations: no limitations - History of Present Illness Initial comments: 54-year-old female patient presents to the emergency department today for evaluation of abscess to the left index finger. Patient states that the area started has what she believed was a small wart or callus to the finger. States that yesterday the area turned red and started to become swollen. Patient states that she cut it open with a knife earlier today and had drainage of a large amount of pus. Patient states that the area started to turn purple in color this evening and had more pain so she presented to have it evaluated. States that she did take 200 mg ibuprofen earlier this morning he didn't seem to help. She denies any fevers or chills with this. Denies history of similar symptoms. Denies any other known medical conditions. - Related Data Home Medications Medication Instructions Recorded Confirmed Albuterol Inhaler (Mhu) [Ventolin 1 - 2 puff INHALATION RT-BID PRN 10/12/18 10/12/18 Hfa Inhaler (Mhu)] Ibuprofen [Motrin Ib] 400 mg PO Q6H PRN 10/12/18 10/12/18 Previous Rx's Medication Instructions Recorded Clindamycin HCl 300 mg PO Q6H #40 cap 05/23/20 Ibuprofen [Motrin] 600 mg PO Q8HR PRN #30 tab 05/23/20 Allergies Allergy/AdvReac Type Severity Reaction Status Date / Time Sulfa (Sulfonamide Allergy Anaphylaxis Verified 05/23/20 02:12 Antibiotics) steroids AdvReac Confusion/a Uncoded 05/23/20 02:12 ggressive Review of Systems ROS Statement: Those systems with pertinent positive or pertinent negative responses have been documented in the HPI. ROS Other: All systems not noted in ROS Statement are negative. 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, one functioning kidney History of Any Multi-Drug Resistant Organisms: None Reported Past Surgical History: Appendectomy, Hysterectomy Additional Past Surgical History / Comment(s): corn removal Past Anesthesia/Blood Transfusion Reactions: No Reported Reaction Past Psychological History: No Psychological Hx Reported Smoking Status: Current every day smoker Past Alcohol Use History: Occasional Past Drug Use History: Cocaine - Past Family History Mother Sister(s) Family Medical History: Cancer, CVA/TIA Additional Family Medical History / Comment(s): cervicle Father Family Medical History: Coronary Artery Disease (CAD) General Exam Limitations: no limitations General appearance: alert, in no apparent distress, other (This is a well- developed, well-nourished adult female patient in no acute distress. Vital signs upon presentation are temperature 98.2F, pulse 75, respirations 18, blood pressure 139/95, pulse ox 98% on room air.) Respiratory exam: Present: normal lung sounds bilaterally. Absent: respiratory distress, wheezes, rales, rhonchi, stridor Cardiovascular Exam: Present: regular rate, normal rhythm, normal heart sounds. Absent: systolic murmur, diastolic murmur, rubs, gallop, clicks Extremities exam: Present: full ROM, normal capillary refill, other (Patient has 1.5 cm abscess to the left index finger near the DIP joint. There is surrounding erythema. Patient does have full range of motion of the finger. There is faint red streaking up the hand to the wrist. There is fusiform swelling, but the finger is soft. No tenderness over the tendon sheath. Skin is otherwise pink, warm, and dry. Cap refills less than 3 seconds. Radial pulses 2+ and equal bilaterally.). Absent: tenderness, pedal edema, joint swelling, calf tenderness Neurological exam: Present: alert, oriented X3, CN II-XII intact Psychiatric exam: Present: normal affect, normal mood Skin exam: Present: warm, dry, intact, normal color. Absent: rash Course Vital Signs 05/23/20 02:09 Temperature 98.2 F Pulse Rate 75 Respiratory 18 Rate Blood Pressure 139/95 O2 Sat by Pulse 98 Oximetry Procedures - [place] Protocol (Time Out) Procedure Performed:: Incision and Drainage on pt's left index finger Performing Provider: Gertrude Reyna Nurse: Rai Amaya Patient Identification (2 identifiers required): Chart, Verbal, Arm Band, Name, Birthdate Patient/Legal Eligibility Technician has Confirmed: Identity, Site, Procedure, Consent Site: Left index finger Site Marked: Yes Site Verified With Patient/Guardian: Yes - Incision & Drainage Consent Obtained: written consent Indication: Abscess Site: hand (Left index finger) Size (cm): 2 Anesthetic Used: lidocaine 1% Amount (mLs): 2 I&D Cleaning Method: Betadine Scalpel Used: #11 I&D Drainage Obtained: Pus Culture Obtained?: Yes Patient Tolerated Procedure: well, no complications Medical Decision Making - Medical Decision Making 54-year-old female patient presented to the emergency department today for evaluation of abscess to the left index finger. Physical examination did reveal a 1.5cm abscess to the left index finger near the DIP joint. There is mild surrounding erythema. General swelling. To fully extend the finger. No tenderness over the flexor tendon sheath. She is afebrile. I did perform incision and drainage. Culture was obtained. She'll be started on antibiotics. Instructed take Profen as needed. Instructed to follow-up with her primary care physician for recheck in 1-2 days. Return parameters were discussed in detail. She verbalizes understanding and agrees with this plan. Disposition Clinical Impression: Abscess of left index finger Disposition: HOME SELF-CARE Condition: Good Instructions (If sedation given, give patient instructions): Abscess Incision and Drainage (ED), Abscess (ED) Additional Instructions: Soak finger in hot water 3-4 times daily for at least 20 minutes. Complete antibiotic prescription in full. Follow up with your primary care physician for recheck in 1-2 days. Follow up with cost specialist for further evaluation as needed. Return to the emergency department immediately for any new, worsening, or concerning symptoms. Prescriptions: Clindamycin HCl 300 mg PO Q6H #40 cap Ibuprofen [Motrin] 600 mg PO Q8HR PRN #30 tab PRN Reason: Pain Is patient prescribed a controlled substance at d/c from ED?: No Referrals: Davian Starr MD [STAFF PHYSICIAN] - 1-2 days Time of Disposition: 02:57
[2020-05-23 03:08] VITALS: BP 111/97; PULSE 78; TEMP 98
== END 2020-05-23 03:07 | disposition home or self-care (01) ==
LOC: EC 02:05
DX: L02.512 Cutaneous abscess of left hand (principal); F17.200 Nicotine dependence, unspecified, uncomplicated; M19.90 Unspecified osteoarthritis, unspecified site; Z85.820 Personal history of malignant melanoma of skin; Z88.2 Allergy status to sulfonamides; Z88.8 Allergy status to other drugs, medicaments and biological substances
CPT/HCPCS: 87070; 87205; 99283; 10060; J2001; J1885

== ENCOUNTER 2021-10-04 20:43 | Inpatient (IN) | payer OTHER ==
[2021-10-04] MEDS ORDERED: ALBUTEROL HFA INHALER INHALATION STA (21:05)
[2021-10-04] MEDS ORDERED: DEXAMETHASONE SOD PHOSPHATE 10 MG/ML 1 ML VIAL IVP STA (21:07)
[2021-10-04 21:31] LABS: Basophils % (A) 0 %; Eosinophils % (A) 0 %; HCT 48.1 % (34.0-46.0); HGB 16.3 gm/dL (11.4-16.0); Lymphocytes # (A) 0.8 k/uL (1.0-4.8); Lymphocytes % (A) 11 %; MCH 32.2 pg (25.0-35.0); MCHC 33.8 g/dL (31.0-37.0); MCV 95.2 fL (80.0-100.0); Mean Platelet Volume 8.6; Monocytes # (A) 0.3 k/uL (0-1.0); Monocytes % (A) 4 %; Neutrophils # (A) 6.4 k/uL (1.3-7.7); Neutrophils % (A) 84 %; Platelet Count 139 k/uL (150-450); RBC 5.06 m/uL (3.80-5.40); RDW 12.7 % (11.5-15.5); WBC 7.6 k/uL (3.8-10.6)
[2021-10-04 21:43] LABS: Partial Thromboplastin Time 31.4 sec (22.0-30.0); Prothrombin Time 10.5 sec (9.0-12.0)
--- NOTE | 2021-10-04 22:01 | XR ---
EXAMINATION TYPE: XR chest 2V DATE OF EXAM: 10/04/2021 COMPARISON: 08/26/2021 HISTORY: Chest pain TECHNIQUE: FINDINGS: There is some mild lower lobe posterior interstitial and airspace infiltrates. Heart size i s normal. There are no hilar masses. Mediastinum is normal. Bony thorax is intact. IMPRESSION: There is mild bilateral posterior lower lobe pneumonia which is new compared to old exam.
[2021-10-04] MEDS ORDERED: NALOXONE 0.4 MG/ML 1 ML VIAL IV PRN (22:16)
--- NOTE | 2021-10-04 22:16 | ED ---
URI HPI - General Chief Complaint: Upper Respiratory Infection Stated Complaint: Covid + Time Seen by Provider: 10/04/21 21:00 Source: patient, RN notes reviewed Mode of arrival: wheelchair Limitations: no limitations - History of Present Illness Initial Comments: Randy is a 55-year-old female that presents to the emergency department due to increased shortness of breath especially with exertion. She noted she is Covid- positive 6 days. She notes that she does not use at home oxygen. She notes that she came to the emergency room today due to feeling short of breath and not feeling any better. Patient otherwise looked to be uncomfortable and working to breathe. She denied any chest pain headache nausea vomiting diarrhea constipation fever fatigue chills. - Related Data Home Medications Medication Instructions Recorded Confirmed Albuterol Inhaler (Mhu) [Ventolin 1 - 2 puff INHALATION RT-BID PRN 10/12/18 10/12/18 Hfa Inhaler (Mhu)] Ibuprofen [Motrin Ib] 400 mg PO Q6H PRN 10/12/18 10/12/18 Previous Rx's Medication Instructions Recorded Clindamycin HCl 300 mg PO Q6H #40 cap 05/23/20 Ibuprofen [Motrin] 600 mg PO Q8HR PRN #30 tab 05/23/20 Allergies Allergy/AdvReac Type Severity Reaction Status Date / Time Sulfa (Sulfonamide Allergy Anaphylaxis Verified 10/04/21 20:48 Antibiotics) steroids AdvReac Confusion/a Uncoded 10/04/21 20:48 ggressive Review of Systems ROS Statement: Those systems with pertinent positive or pertinent negative responses have been documented in the HPI. ROS Other: All systems not noted in ROS Statement are negative. 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, one functioning kidney History of Any Multi-Drug Resistant Organisms: None Reported Past Surgical History: Appendectomy, Hysterectomy Additional Past Surgical History / Comment(s): corn removal Past Anesthesia/Blood Transfusion Reactions: No Reported Reaction Past Psychological History: No Psychological Hx Reported Smoking Status: Current every day smoker Past Alcohol Use History: Occasional Past Drug Use History: Cocaine - Past Family History Mother Sister(s) Family Medical History: Cancer, CVA/TIA Additional Family Medical History / Comment(s): cervicle Father Family Medical History: Coronary Artery Disease (CAD) General Exam Limitations: no limitations General appearance: alert, in no apparent distress Head exam: Present: atraumatic, normocephalic, normal inspection Eye exam: Present: normal appearance, PERRL, EOMI. Absent: scleral icterus, conjunctival injection, periorbital swelling ENT exam: Present: normal exam, mucous membranes moist Neck exam: Present: normal inspection Respiratory exam: Present: decreased breath sounds (Bilateral lower lobes), other (Nasal cannula in place). Absent: respiratory distress, wheezes, rales, rhonchi, stridor Cardiovascular Exam: Present: regular rate, normal rhythm, normal heart sounds. Absent: systolic murmur, diastolic murmur, rubs, gallop, clicks GI/Abdominal exam: Present: soft, normal bowel sounds. Absent: distended, tenderness, guarding, rebound, rigid Extremities exam: Present: normal inspection, full ROM, normal capillary refill. Absent: tenderness, pedal edema, joint swelling, calf tenderness Neurological exam: Present: alert, oriented X3 Psychiatric exam: Present: normal affect, normal mood Skin exam: Present: warm, dry, intact, normal color. Absent: rash Course Vital Signs 10/04/21 10/04/21 10/04/21 20:45 21:15 21:30 Temperature 98.3 F Pulse Rate 66 Respiratory 22 Rate Blood Pressure 121/83 O2 Sat by Pulse 92 L 89 L 94 L Oximetry Medical Decision Making - Medical Decision Making 55-year-old female with worsening symptoms of Covid 6 days. Labs, chest x-ray, 4 L of oxygen via nasal cannula, 10 mg of Decadron to positive and albuterol inhaler ordered. Labs show dehydration pattern and a Covid positive test. Chest x-ray shows bilateral lower lobe pneumonia new compared to old exam. Case discussed with Dr. Waldrop, patient will be admitted for Covid pneumonia and hypoxia. Dr. Crowley was consulted and will accept the admit. - Lab Data Result diagrams: 10/04/21 21:10 Lab Results 10/04/21 10/04/21 10/04/21 Range/Units 21:10 21:10 21:10 WBC 7.6 (3.8-10.6) k/uL RBC 5.06 (3.80-5.40) m/uL Hgb 16.3 H (11.4-16.0) gm/dL Hct 48.1 H (34.0-46.0) % MCV 95.2 (80.0-100.0) fL MCH 32.2 (25.0-35.0) pg MCHC 33.8 (31.0-37.0) g/dL RDW 12.7 (11.5-15.5) % Plt Count 139 L (150-450) k/uL MPV 8.6 Neutrophils % 84 % Lymphocytes % 11 % Monocytes % 4 % Eosinophils % 0 % Basophils % 0 % Neutrophils # 6.4 (1.3-7.7) k/uL Lymphocytes # 0.8 L (1.0-4.8) k/uL Monocytes # 0.3 (0-1.0) k/uL Eosinophils # 0.0 (0-0.7) k/uL Basophils # 0.0 (0-0.2) k/uL PT 10.5 (9.0-12.0) sec INR 1.0 (<1.2) APTT 31.4 H (22.0-30.0) sec Coronavirus (PCR) Detected A (Not Detectd) - Radiology Data Radiology results: report reviewed, image reviewed Chest x-ray: There is mild bilateral posterior lower lobe pneumonia which is new compared to old exam. Disposition Clinical Impression: Pneumonia due to COVID-19 virus, Hypoxia, Dehydration Disposition: ADMITTED IP TO THIS [facility] Condition: Stable Referrals: Anjum Lim MD [Primary Care Provider] - 1-2 days Time of Disposition: 22:16
[2021-10-04 22:25] LABS: Albumin 3.6 g/dL (3.5-5.0); C Reactive Protein 6.3 mg/dL (<1.0); Calcium 9.6 mg/dL (8.4-10.2); Potassium 3.7 mmol/L (3.5-5.1); Total Bilirubin 0.6 mg/dL (0.2-1.3); Total Protein 6.3 g/dL (6.3-8.2)
[2021-10-04] MEDS: SODIUM CHLORIDE 0.9% 1,000 ML IV SCH (22:37)
[2021-10-05] MEDS: SODIUM CHLORIDE 0.9% 1,000 ML IV SCH ×3 (05:48→21:28)
[2021-10-05] MEDS: ASCORBIC ACID 500 MG TAB PO SCH (07:14)
[2021-10-05] MEDS: ENOXAPARIN 40 MG/0.4 ML SYRINGE SQ SCH (07:14)
[2021-10-05] MEDS: ZINC SULFATE 220 MG CAP PO SCH (07:14)
[2021-10-05] MEDS: FAMOTIDINE 20 MG TAB PO SCH (07:14)
[2021-10-05] MEDS: CHOLECALCIFEROL 25 MCG (1000 IU) TABLET PO SCH (07:14)
[2021-10-05] MEDS: guaiFENesin-Coden 100-10MG/5ML 10 ML CUP PO PRN (09:23)
[2021-10-05] MEDS ORDERED: REMDESIVIR 200 MG in SODIUM CHLORIDE 0.9% 250 ML IVPB ONE (12:30)
[2021-10-05] MEDS: HYDROcodone/APAP 5-325MG 1 EACH TAB PO PRN ×2 (12:46→21:29)
--- NOTE | 2021-10-05 13:42 | P.CNPUL ---
History of Present Illness Consult date: 10/05/21 Requesting physician: Felisha Waldrop Reason for consult: dyspnea Chief complaint: Shortness of breath, fever, cough, diarrhea History of present illness: 65-year-old white female patient, non-vaccinated against COVID-19, ex-smoker, with history of COPD with a baseline FEV1 of 2.49 or 90% of predicted consistent with a minimal obstructive airways disease with good response to bronchodilator s, usually not oxygen dependent at baseline, chronic back pain, previous history of melanoma with surgical resection. Patient presented to the emergency department on 10/04/2021 with symptoms of shortness of breath, fever, cough, and diarrhea, her symptoms have been present for 6 days. Chest x-ray in the emergency department showed mild bilateral posterior lower lobe pneumonia. She tested positive for COVID-19 by PCR test, her white blood cell, was 7.6, hemoglobin was 16.3, platelet count was 139, INR was 1.0, sodium was 1:30, potassium was 3.7, chloride was 99, CO2 is 22, BUN was 12, creatinine was 0.86, ferritin level was 316, LDH was 530, LFTs were within normal limits, CRP of 6.3, pro-calcitonin level was negative at 0.07, patient was started on IV hydration, IV Decadron 6 mg daily, prophylactic Lovenox, COVID-19 vitamins, and patient is a good candidate for Remdesivir due to her length of symptoms on which she will be started today. Review of Systems All systems: negative Constitutional: Reports fatigue, Reports fever, Reports malaise, Reports weakness, Denies chills Eyes: denies blurred vision, denies pain Ears, nose, mouth and throat: Denies headache, Denies sore throat Cardiovascular: Denies chest pain, Denies shortness of breath Respiratory: Reports cough Gastrointestinal: Reports diarrhea, Denies abdominal pain, Denies nausea, Denies vomiting Genitourinary: Denies dysuria, Denies hematuria Musculoskeletal: Denies myalgias Integumentary: Denies pruritus, Denies rash Neurological: Denies numbness, Denies weakness Psychiatric: Denies anxiety, Denies depression Endocrine: Denies fatigue, Denies weight change 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, one functioning kidney History of Any Multi-Drug Resistant Organisms: None Reported Past Surgical History: Appendectomy, Hysterectomy Additional Past Surgical History / Comment(s): corn removal Past Anesthesia/Blood Transfusion Reactions: No Reported Reaction Past Psychological History: No Psychological Hx Reported Smoking Status: Current every day smoker Past Alcohol Use History: Occasional Past Drug Use History: Cocaine - Past Family History Mother Sister(s) Family Medical History: Cancer, CVA/TIA Additional Family Medical History / Comment(s): cervicle Father Family Medical History: Coronary Artery Disease (CAD) Medications and Allergies Home Medications Medication Instructions Recorded Confirmed Type Albuterol Sulfate [Proair Hfa] 1 - 2 puff INHALATION RT-QID PRN 10/04/21 History Allergies Allergy/AdvReac Type Severity Reaction Status Date / Time Sulfa (Sulfonamide Allergy Anaphylaxis Verified 10/04/21 22:29 Antibiotics) prednisone AdvReac Confusion/a Verified 10/04/21 22:29 ggressive steroids AdvReac Confusion/a Uncoded 10/04/21 22:29 ggressive Physical Exam Vitals: Vital Signs Temp Pulse Pulse Resp BP BP Pulse Ox 10/05/21 09:15 97.7 F 85 17 127/83 94 L 10/05/21 05:30 97.7 F 85 15 110/74 93 L 10/05/21 05:02 97 18 10/05/21 00:56 98.1 F 97 18 100/68 93 L 10/05/21 00:10 98.7 F 96 20 118/74 93 L 10/04/21 22:37 109 H 20 124/77 92 L 10/04/21 21:30 94 L 10/04/21 21:15 89 L 10/04/21 20:45 98.3 F 66 22 121/83 92 L Intake and Output 10/04/21 10/05/21 10/05/21 22:59 06:59 14:59 Other: Voiding Method Toilet # Voids 1 Weight 65.771 kg 65.771 kg GENERAL EXAM: Alert, very pleasant, 55-year-old white female, on 4 L of oxygen the process of 94% comfortable in no apparent distress. HEAD: Normocephalic/atraumatic. EYES: Normal reaction of pupils, equal size. Conjunctiva pink, sclera white. NOSE: Clear with pink turbinates. THROAT: No erythema or exudates. NECK: No masses, no JVD, no thyroid enlargement, no adenopathy. CHEST: No chest wall deformity. Symmetrical expansion. LUNGS: Equal air entry with crackles in bilateral bases, diminished breath sounds CVS: Regular rate and rhythm, normal S1 and S2, no gallops, no murmurs, no rubs ABDOMEN: Soft, nontender. No hepatosplenomegaly, normal bowel sounds, no guarding or rigidity. EXTREMITIES: No clubbing, no edema, no cyanosis, 2+ pulses and upper and lower extremities. MUSCULOSKELETAL: Muscle strength and tone normal. SPINE: No scoliosis or deformity SKIN: No rashes CENTRAL NERVOUS SYSTEM: Alert and oriented -3. No focal deficits, tone is normal in all 4 extremities. PSYCHIATRIC: Alert and oriented -3. Appropriate affect. Intact judgment and insight. Results - Laboratory Findings CBC and BMP: 10/04/21 21:10 10/04/21 21:10 PT/INR, D-dimer PT 10.5 sec (9.0-12.0) 10/04/21 21:10 INR 1.0 (<1.2) 10/04/21 21:10 Abnormal lab findings: Abnormal Labs 10/04/21 10/04/21 10/04/21 21:10 21:10 21:10 Hgb 16.3 H Hct 48.1 H Plt Count 139 L Lymphocytes # 0.8 L APTT 31.4 H Sodium 130 L Glucose 122 H Ferritin 316.0 H C-Reactive Protein 6.3 H Coronavirus (PCR) 10/04/21 21:10 Hgb Hct Plt Count Lymphocytes # APTT Sodium Glucose Ferritin C-Reactive Protein Coronavirus (PCR) Detected A - Diagnostic Findings Chest x-ray: report reviewed, image reviewed Assessment and Plan Plan: Assessment: #1. Acute hypoxic respiratory failure related to acute COVID-19 related pneumonia, patient came into the emergency department on 10/04/2021 with 6 day history of symptoms. She is a non-vaccinated adult. She started on Remdesivir today on 10/05/2021 #2. History of COPD, mild, with last PFT showing mild to moderate obstructive a irway disease with good response to bronchodilators and FEV1 2.49 or 90% of predicted with good bronchodilator response #3. Ex-smoker, quit smoking 10 weeks ago #4. History of melanoma on her back status post resection #5. Osteoarthritis #6. Previous history of pneumonia Plan: Patient will be started on Remdesivir per protocol Continue IV hydration Continue Decadron 6 mg daily prophylactic Lovenox, and COVID-19 vitamins Inflammatory markers are not significantly elevated We'll obtain pro-calcitonin and d-dimer We'll follow her clinical course and make further recommendations accordingly I performed a history & physical examination of the patient and discussed their management with my nurse practitioner, Donna Batista. I reviewed the nurse practitioner's note and agree with the documented findings and plan of care. Lung sounds are positive for diminished breath sounds throughout the lung gordon. The findings and the impression was discussed with the patient. I attest to the documentation by the nurse practitioner. Time with Patient: Greater than 30
[2021-10-05] MEDS: DEXAMETHASONE SOD PHOSPHATE 10 MG/ML 1 ML VIAL IVP SCH (13:52)
--- NOTE | 2021-10-05 15:47 | P.HPIM ---
History of Present Illness Patient presents because she was tested positive for Covid about 6 days ago and now she is complaining of from increasing dyspnea and weakness. Also she has nausea vomiting This is a pleasant 55 years old female with past medical history of osteoarthritis, seizure disorder, chronic back pain, 1 functioning solitary kidney Patient states that her symptoms started 6 days ago with dyspnea, coughing with some chest pain from coughing and also she has some diarrhea and vomiting and fever at home 3 days ago she went to health department and she was tested positive for Covid. Patient does not have PCP and does not see any other doctor. No abdominal pain or urinary complaints. No headache or weakness On admission she is mildly hypoxic and currently she is on 4 L oxygen with saturation of 93% LDH is normal at 5:30, C-reactive protein is slightly elevated at 6.3. CBC is unremarkable except for mild lymphopenia at 0.8. Sodium is 1:30, creatinine normal. Covid test is positive Chest x-ray showing bilateral infiltrate Priorcalcitonin is pending. Patient is a sore discharged on dexamethasone, vitamin C, D and zinc, Pepcid and Lovenox Review of Systems Review of systems CONSTITUTIONAL: No fever, no malaise, no fatigue. HEENT: No recent visual problems or hearing problems. Denied any sore throat. CARDIOVASCULAR: No orthopnea, PND, no palpitations, no syncope. Respiratory/PULMONARY: No sneezing or sore throat, no hemoptysis. GASTROINTESTINAL: No diarrhea, no nausea, no vomiting, no abdominal pain. Normoactive bowel sounds. NEUROLOGICAL: No headaches, no weakness, no numbness. HEMATOLOGICAL: Denies any bleeding or petechiae. GENITOURINARY: Denies any burning micturition, frequency, or urgency. MUSCULOSKELETAL/RHEUMATOLOGICAL: Denies any joint pain, swelling, or any muscle pain. ENDOCRINE: Denies any polyuria or polydipsia. 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, one functioning kidney History of Any Multi-Drug Resistant Organisms: None Reported Past Surgical History: Appendectomy, Hysterectomy Additional Past Surgical History / Comment(s): corn removal Past Anesthesia/Blood Transfusion Reactions: No Reported Reaction Past Psychological History: No Psychological Hx Reported Smoking Status: Current every day smoker Past Alcohol Use History: Occasional Past Drug Use History: Cocaine - Past Family History Mother Sister(s) Family Medical History: Cancer, CVA/TIA Additional Family Medical History / Comment(s): cervicle Father Family Medical History: Coronary Artery Disease (CAD) Medications and Allergies Home Medications Medication Instructions Recorded Confirmed Type Albuterol Sulfate [Proair Hfa] 1 - 2 puff INHALATION RT-QID PRN 10/04/21 10/04/21 History Allergies Allergy/AdvReac Type Severity Reaction Status Date / Time Sulfa (Sulfonamide Allergy Anaphylaxis Verified 10/04/21 22:29 Antibiotics) prednisone AdvReac Confusion/a Verified 10/04/21 22:29 ggressive steroids AdvReac Confusion/a Uncoded 10/04/21 22:29 ggressive Physical Exam Vitals: Vital Signs Temp Pulse Pulse Resp BP BP Pulse Ox 10/05/21 05:30 97.7 F 85 15 110/74 93 L 10/05/21 05:02 97 18 10/05/21 00:56 98.1 F 97 18 100/68 93 L 10/05/21 00:10 98.7 F 96 20 118/74 93 L 10/04/21 22:37 109 H 20 124/77 92 L 10/04/21 21:30 94 L 10/04/21 21:15 89 L 10/04/21 20:45 98.3 F 66 22 121/83 92 L Intake and Output 10/04/21 10/05/21 10/05/21 22:59 06:59 14:59 Other: Voiding Method Toilet Weight 65.771 kg 65.771 kg GENERAL: The patient is alert and oriented x3, not in any acute distress. Well developed, well nourished. HEENT: Pupils are round and equally reacting to light. EOMI. No scleral icterus. No conjunctival pallor. Normocephalic, atraumatic. No pharyngeal erythema. No thyromegaly. CARDIOVASCULAR: S1 and S2 present. No murmurs, rubs, or gallops. -PULMONARY: Chest is clear to auscultation, no wheezing . Bilateral crepitation ABDOMEN: Soft, nontender, nondistended, normoactive bowel sounds. No palpable organomegaly. MUSCULOSKELETAL: No joint swelling or deformity. EXTREMITIES: No cyanosis, clubbing, or pedal edema. NEUROLOGICAL: Gross neurological examination did not reveal any focal deficits. SKIN: No rashes. no petechiae. Results CBC & Chem 7: 10/04/21 21:10 10/04/21 21:10 Labs: Abnormal Lab Results - Last 24 Hours (Table) 10/04/21 10/04/21 10/04/21 Range/Units 21:10 21:10 21:10 Hgb 16.3 H (11.4-16.0) gm/dL Hct 48.1 H (34.0-46.0) % Plt Count 139 L (150-450) k/uL Lymphocytes # 0.8 L (1.0-4.8) k/uL APTT 31.4 H (22.0-30.0) sec Sodium 130 L (137-145) mmol/L Glucose 122 H (74-99) mg/dL C-Reactive Protein 6.3 H (<1.0) mg/dL Coronavirus (PCR) (Not Detectd) 10/04/21 Range/Units 21:10 Hgb (11.4-16.0) gm/dL Hct (34.0-46.0) % Plt Count (150-450) k/uL Lymphocytes # (1.0-4.8) k/uL APTT (22.0-30.0) sec Sodium (137-145) mmol/L Glucose (74-99) mg/dL C-Reactive Protein (<1.0) mg/dL Coronavirus (PCR) Detected A (Not Detectd) Thrombosis Risk Factor Assmnt - Choose All That Apply Each Factor Represents 1 point: Age 41-60 years Thrombosis Risk Factor Assessment Total Risk Factor Score: 1 Thrombosis Risk Factor Assessment Level: Low Risk Assessment and Plan Assessment: Bilateral Covid pneumonia Acute hypoxic respiratory failure Increased inflammatory markers History of osteoarthritis History of seizure disorder Chronic back pain Unilateral kidney Plan: This is a pleasant 55 years old female who presents with bilateral Covid pneumonia Continue with dexamethasone Continue with vitamin C, vitamin D and zinc Pulmonary consult Patient was started on remdesivir and dexametahsone Labs and medication were reviewed.. Continue same treatment. Continue with symptomatic treatment. Resume home medication. Monitor lytes and vitals. DVT and GI prophylaxis. Further recommendationsas per clinical course of the patient DVT prophylaxis: Subcutaneous heparin GI Prophylaxis: Pepcid PT/OT: Pending Prognosis is guarded
[2021-10-05] MEDS: MELATONIN 3 MG TABLET PO PRN (22:45)
[2021-10-06] MEDS: SODIUM CHLORIDE 0.9% 1,000 ML IV SCH ×2 (05:40→09:10)
[2021-10-06] MEDS: HYDROcodone/APAP 5-325MG 1 EACH TAB PO PRN ×2 (05:52→16:38)
[2021-10-06] MEDS: ASCORBIC ACID 500 MG TAB PO SCH (09:05)
[2021-10-06] MEDS: ZINC SULFATE 220 MG CAP PO SCH (09:05)
[2021-10-06] MEDS: ENOXAPARIN 40 MG/0.4 ML SYRINGE SQ SCH (09:05)
[2021-10-06] MEDS: FAMOTIDINE 20 MG TAB PO SCH (09:05)
[2021-10-06] MEDS: DEXAMETHASONE SOD PHOSPHATE 10 MG/ML 1 ML VIAL IVP SCH (09:05)
[2021-10-06] MEDS: CHOLECALCIFEROL 25 MCG (1000 IU) TABLET PO SCH (09:06)
[2021-10-06] MEDS: guaiFENesin-Coden 100-10MG/5ML 10 ML CUP PO PRN (09:10)
[2021-10-06] MEDS: IOPAMIDOL CONTRAST (ORAL USE) VIAL PO PRN ×2 (10:31→11:50)
[2021-10-06] MEDS: MORPHINE SULFATE 4 MG/ML SYRINGE IVP PRN ×2 (10:32→20:00)
[2021-10-06 11:17] LABS: Basophils # (A) 0.01 X 10*3/uL (0.00-0.10); Basophils % (A) 0.2 %; Eosinophils # (A) 0 X 10*3/uL (0.04-0.35); Eosinophils % (A) 0 %; HCT 38.5 % (37.2-46.3); HGB 12.6 g/dL (12.0-15.0); Lymphocytes # (A) 1.07 X 10*3/uL (0.90-5.00); Lymphocytes % (A) 17.5 %; MCH 31.1 pg (27.0-32.0); MCHC 32.7 g/dL (32.0-37.0); MCV 95.1 fL (80.0-97.0); Mean Platelet Volume 10.6 fL (9.5-12.2); Monocytes # (A) 0.56 X 10*3/uL (0.20-1.00); Monocytes % (A) 9.2 %; Neutrophils # (A) 4.39 X 10*3/uL (1.80-7.70); Neutrophils % (A) 71.8 %; Platelet Count 205 X 10*3/uL (140-440); RBC 4.05 X 10*6/uL (4.10-5.20); RDW 12.2 % (11.5-14.5); WBC 6.11 X 10*3/uL (4.50-10.00)
[2021-10-06 11:56] LABS: ALT 18 U/L (8-44); AST 24 U/L (13-35); African American GFR (CKD) 110.5 (60.0-200.0); Albumin/Globulin Ratio 1.65 (1.60-3.17); Alkaline Phosphatase 72 U/L (41-126); BUN/Creat Ratio 19.46 Ratio (12.00-20.00); Blood Urea Nitrogen 13.8 mg/dL (9.0-27.0); Carbon Dioxide 20.5 mmol/L (20.0-27.5); Chloride 109 mmol/L (96-109); Globulin 1.8 g/dL (1.6-3.3); Glucose 120 mg/dL (70-110); LDH 163 U/L (120-246); Non-African American GFR(CKD) 95.4 (60.0-200.0); Potassium 4.1 mmol/L (3.5-5.5); Sodium 139 mmol/L (135-145); Total Bilirubin <0.20 mg/dL (0.30-1.20); Total Protein 4.8 g/dL (6.2-8.2)
[2021-10-06] MEDS: REMDESIVIR 100 MG in SODIUM CHLORIDE 0.9% 250 ML IVPB SCH (13:21)
[2021-10-06 14:02] VITALS: BMI 24.1
--- NOTE | 2021-10-06 14:25 | CT ---
EXAMINATION TYPE: CT abdomen pelvis w con DATE OF EXAM: 10/06/2021 COMPARISON: NONE HISTORY: 55-year-old female COVID pneumonia, LLQ pain TECHNIQUE: Contiguous axial scanning of the abdomen and pelvis following administration of 100 ml Iso yobani 300 IV contrast. Delayed images through the kidneys and coronal/sagittal reconstructions perform ed. CT DLP: 886.7 mGycm Automated exposure control for dose reduction was used. FINDINGS: Heart normal size without pericardial effusion. Some nodular interstitial densities at the lower lobes. Strandy scarring or atelectasis right base. No pleural effusion. Liver mildly enlarged at 18.2 cm. A 5 mm calcified granuloma posterior right liver lobe. Portal venou s system is patent. Bile duct dilated at 1 cm. No distal obstructing lesion seen. No abnormal gallbladder distention. Adrenal glands, spleen, and pancreas show no gross abnormal body. No dilated small bowel, free fluid, or free air. No mesenteric or retroperitoneal lymphadenopathy. Appendix is not visualized. Moderate stool burden. No pericolonic inflammatory change. Bladder not distended. Uterus surgically absent. Neither ovary visualized. Multiple pelvic phlebolith s. No abnormal fluid collection in the pelvis or pelvic lymphadenopathy. Bones: Mild to moderate degenerative change right hip and mild of the left hip. Marked hypertrophic f acet arthropathy mid to lower lumbar spine with nearly grade 2 anterolisthesis L4-L5. IMPRESSION: 1. RETICULONODULAR OPACITIES IN THE VISUALIZED LOWER LOBES. CORRELATE FOR POSSIBLE ETIOLOGIES SUCH BRONCHIOLITIS, ASPIRATION, OR ATYPICAL INFECTIONS. 2. BILE DUCT DILATED AT 1 CM. THIS MAY BE CHRONIC FOR THE PATIENT. CORRELATE FOR NORMAL ALKALINE PHOS PHATASE AND BILIRUBIN LEVELS. 3. MODERATE STOOL BURDEN.
--- NOTE | 2021-10-06 16:29 | P.PN ---
Subjective Progress Note Date: 10/06/21 65-year-old white female patient, non-vaccinated against COVID-19, ex-smoker, with history of COPD with a baseline FEV1 of 2.49 or 90% of predicted consistent with a minimal obstructive airways disease with good response to bronchodilators, usually not oxygen dependent at baseline, chronic back pain, previous history of melanoma with surgical resection. Patient presented to the emergency department on 10/04/2021 with symptoms of shortness of breath, fever, cough, and diarrhea, her symptoms have been present for 6 days. Chest x-ray in the emergency department showed mild bilateral posterior lower lobe pneumonia. She tested positive for COVID-19 by PCR test, her white blood cell, was 7.6, hemoglobin was 16.3, platelet count was 139, INR was 1.0, sodium was 1:30, potassium was 3.7, chloride was 99, CO2 is 22, BUN was 12, creatinine was 0.86, ferritin level was 316, LDH was 530, LFTs were within normal limits, CRP of 6.3, pro-calcitonin level was negative at 0.07, patient was started on IV hydration, IV Decadron 6 mg daily, prophylactic Lovenox, COVID-19 vitamins, and patient is a good candidate for Remdesivir due to her length of symptoms on which she will be started today. On 10/06/2021 patient seen in follow-up on medical surgical floor, she still wheezy, coughs a lot with any movement, lung sounds reveal diffuse wheezes and crackles, she is currently on day 2 of Remdesivir treatment, she is on Decadron 6 mg IV push once daily, and she is on prophylactic Lovenox. IV fluids are still infusing at 100 ML per hour, patient states she is drinking plenty of fluids however her appetite is poor as she does not taste much. Today's reviewed, with blood cell count is 6.1, hemoglobin is 12.6, d-dimer is improved and is down to 0.57, electrolytes are within normal limits, and profile is within normal limits. Today's labs her LDH is down to 163, CRP is also improved and is down to 2.4. proCalcitonin level was negative at 0.07. Objective - Vital Signs Vital signs: Vital Signs Temp 98.3 F 10/06/21 14:00 Pulse 74 10/06/21 14:00 Resp 16 10/06/21 14:00 BP 122/76 10/06/21 14:00 Pulse Ox 97 10/06/21 14:00 Intake & Output 10/05/21 10/06/21 10/06/21 18:59 06:59 18:59 Weight 65.771 kg Other: Voiding Method Toilet # Voids 1 1 - Exam GENERAL EXAM: Alert, very pleasant, 55-year-old white female, on 4 L of oxygen the process of 94% comfortable in no apparent distress. HEAD: Normocephalic/atraumatic. EYES: Normal reaction of pupils, equal size. Conjunctiva pink, sclera white. NOSE: Clear with pink turbinates. THROAT: No erythema or exudates. NECK: No masses, no JVD, no thyroid enlargement, no adenopathy. CHEST: No chest wall deformity. Symmetrical expansion. LUNGS: Equal air entry with crackles and diffuse wheezes bilaterally CVS: Regular rate and rhythm, normal S1 and S2, no gallops, no murmurs, no rubs ABDOMEN: Soft, nontender. No hepatosplenomegaly, normal bowel sounds, no guarding or rigidity. EXTREMITIES: No clubbing, no edema, no cyanosis, 2+ pulses and upper and lower extremities. MUSCULOSKELETAL: Muscle strength and tone normal. SPINE: No scoliosis or deformity SKIN: No rashes CENTRAL NERVOUS SYSTEM: Alert and oriented -3. No focal deficits, tone is normal in all 4 extremities. PSYCHIATRIC: Alert and oriented -3. Appropriate affect. Intact judgment and insight. - Labs CBC & Chem 7: 10/06/21 06:56 10/06/21 06:56 Labs: Abnormal Lab Results - Last 24 Hours (Table) 10/06/21 10/06/21 Range/Units 06:56 06:56 RBC 4.05 L (4.10-5.20) X 10*6/uL Immature Gran # 0.08 H (0.00-0.04) X 10*3/uL Eosinophils # 0 L (0.04-0.35) X 10*3/uL Anion Gap 9.30 L (10.00-18.00) mmol/L Glucose 120 H (70-110) mg/dL Total Bilirubin <0.20 L (0.30-1.20) mg/dL C-Reactive Protein 2.40 H (0.00-0.80) mg/dL Total Protein 4.8 L (6.2-8.2) g/dL Albumin 3.0 L (3.8-4.9) g/dL Assessment and Plan Plan: Assessment: #1. Acute hypoxic respiratory failure related to acute COVID-19 related pneumonia, patient came into the emergency department on 10/04/2021 with 6 day history of symptoms. She is a non-vaccinated adult. She started on Remdesivir today on 10/05/2021 #2. History of COPD, mild, with last PFT showing mild to moderate obstructive airway disease with good response to bronchodilators and FEV1 2.49 or 90% of predicted with good bronchodilator response #3. Ex-smoker, quit smoking 10 weeks ago #4. History of melanoma on her back status post resection #5. Osteoarthritis #6. Previous history of pneumonia Plan: October Remdesivir, and today is day 2 of treatment Patient's COPD is active, we'll switch Decadron to Solu-Medrol 60 mg every 6 hours Continue prophylactic Lovenox and COVID-19 vitamins Inflammatory markers have further improved on today's labs, d-dimer is within normal limits Procalcitonin level is negative Will continue to follow her clinical course I performed a history & physical examination of the patient and discussed their management with my nurse practitioner, Donna Batista. I reviewed the nurse practitioner's note and agree with the documented findings and plan of care. Lung sounds are positive for diminished breath sounds throughout the lung gordon. The findings and the impression was discussed with the patient. I attest to the documentation by the nurse practitioner. Time with Patient: Less than 30
[2021-10-06] MEDS: BENZONATATE 100 MG CAP PO SCH ×2 (16:38→22:09)
[2021-10-06] MEDS: methylPREDNISolone SOD SUCCI 125 MG/2 ML VIAL IV SCH ×2 (16:38→23:26)
[2021-10-06] MEDS: ALBUTEROL HFA INHALER INHALATION PRN (19:46)
[2021-10-06] MEDS: SYMBICORT 160-4.5 MCG INHALER INHALATION SCH (19:47)
--- NOTE | 2021-10-06 20:33 | P.PN ---
Subjective Patient presents because she was tested positive for Covid about 6 days ago and now she is complaining of from increasing dyspnea and weakness. Also she has nausea vomiting This is a pleasant 55 years old female with past medical history of osteoa rthritis, seizure disorder, chronic back pain, 1 functioning solitary kidney Patient states that her symptoms started 6 days ago with dyspnea, coughing with some chest pain from coughing and also she has some diarrhea and vomiting and fever at home 3 days ago she went to health department and she was tested positive for Covid. Patient does not have PCP and does not see any other doctor. No abdominal pain or urinary complaints. No headache or weakness On admission she is mildly hypoxic and currently she is on 4 L oxygen with saturation of 93% LDH is normal at 5:30, C-reactive protein is slightly elevated at 6.3. CBC is unremarkable except for mild lymphopenia at 0.8. Sodium is 1:30, creat inine normal. Covid test is positive Chest x-ray showing bilateral infiltrate Priorcalcitonin is pending. Patient is a sore discharged on dexamethasone, vitamin C, D and zinc, Pepcid and Lovenox 10/06/2021 Patient admitted with bilateral Covid pneumonia and she has very significant coughing that bothering her causing her chest pain and more severe in the left lower quadrant abdominal pain, she was in severe distress this morning due to her pain, CT of the abdomen and pelvis with contrast after explaining risks including but not limited to risk of nephrotoxicity and patient agrees showed no acute abnormality to explain patient's symptoms most likely her pain is secondary to coughing. She is already on Robitussin before meals and Tessalon is admitted today. Also there is some evidence of stool burden on CT therefore we are going to give her 3 days of Colace. Dexamethasone was switched to Solu- Medrol 60 mg today for her elements of COPD exacerbation. Other than that her oxygen requirement actually improved for down to 3 L/m. LDH is normal at 163, CRP improved down to 2.4. Pro-calcitonin is -0.07. Treatments and multiple vitamins. And on remdesivir ( last dose 10/09) Objective - Vital Signs Vital signs: Vital Signs Temp 98.2 F 10/06/21 10:00 Pulse 71 10/06/21 10:00 Resp 15 10/06/21 10:00 BP 110/69 10/06/21 10:00 Pulse Ox 98 10/06/21 10:00 Intake & Output 10/05/21 10/06/21 10/06/21 18:59 06:59 18:59 Other: Voiding Method Toilet # Voids 1 1 - Exam GENERAL: The patient is alert and oriented x3, not in any acute distress. Well developed, well nourished. HEENT: Pupils are round and equally reacting to light. EOMI. No scleral icterus. No conjunctival pallor. Normocephalic, atraumatic. No pharyngeal erythema. No thyromegaly. CARDIOVASCULAR: S1 and S2 present. No murmurs, rubs, or gallops. -PULMONARY: Chest is clear to auscultation, sattered wheez ABDOMEN: Soft, nontender, nondistended, normoactive bowel sounds. No palpable organomegaly. MUSCULOSKELETAL: No joint swelling or deformity. EXTREMITIES: No cyanosis, clubbing, or pedal edema. NEUROLOGICAL: Gross neurological examination did not reveal any focal deficits. SKIN: No rashes. no petechiae. - Labs CBC & Chem 7: 10/06/21 06:56 10/06/21 06:56 Labs: Abnormal Lab Results - Last 24 Hours (Table) 10/05/21 10/06/21 Range/Units 14:15 06:56 RBC 4.05 L (4.10-5.20) X 10*6/uL Immature Gran # 0.08 H (0.00-0.04) X 10*3/uL Eosinophils # 0 L (0.04-0.35) X 10*3/uL D-Dimer 0.60 H (<0.60) mg/L FEU Assessment and Plan Assessment: Bilateral Covid pneumonia Acute hypoxic respiratory failure Increased inflammatory markers acute COPD exacerbation Significant coughing secondary to above causing left lower quadrant abdominal pain History of osteoarthritis History of seizure disorder Chronic back pain Unilateral kidney Plan: This is a pleasant 55 years old female who presents with bilateral Covid pneumonia Change dexamethasone to Solu-Medrol 60 mg Continue with vitamin C, vitamin D and zinc Pulmonary consult Patient was started on remdesivir Labs and medication were reviewed.. Continue same treatment. Continue with symptomatic treatment. Resume home medication. Monitor lytes and vitals. DVT and GI prophylaxis. Further recommendations as per clinical course of the pat ient DVT prophylaxis: Subcutaneous heparin GI Prophylaxis: Pepcid
[2021-10-06] MEDS: DOCUSATE 100 MG CAP PO SCH ×2 (22:09→23:02)
[2021-10-06] MEDS: MELATONIN 3 MG TABLET PO PRN (23:26)
[2021-10-07] MEDS: guaiFENesin-Coden 100-10MG/5ML 10 ML CUP PO PRN ×2 (03:43→15:03)
[2021-10-07] MEDS: methylPREDNISolone SOD SUCCI 125 MG/2 ML VIAL IV SCH ×3 (05:17→17:17)
[2021-10-07] MEDS: BENZONATATE 100 MG CAP PO SCH ×2 (09:36→16:04)
[2021-10-07] MEDS: DOCUSATE 100 MG CAP PO SCH (09:36)
[2021-10-07] MEDS: ENOXAPARIN 40 MG/0.4 ML SYRINGE SQ SCH (09:36)
[2021-10-07] MEDS: FAMOTIDINE 20 MG TAB PO SCH (09:36)
[2021-10-07] MEDS: CHOLECALCIFEROL 25 MCG (1000 IU) TABLET PO SCH (09:36)
[2021-10-07] MEDS: ZINC SULFATE 220 MG CAP PO SCH (09:36)
[2021-10-07] MEDS: ALBUTEROL HFA INHALER INHALATION PRN (09:36)
[2021-10-07] MEDS: ASCORBIC ACID 500 MG TAB PO SCH (09:36)
[2021-10-07] MEDS: MORPHINE SULFATE 4 MG/ML SYRINGE IVP PRN (09:43)
[2021-10-07] MEDS: SYMBICORT 160-4.5 MCG INHALER INHALATION SCH ×3 (10:12→22:02)
[2021-10-07] MEDS: REMDESIVIR 100 MG in SODIUM CHLORIDE 0.9% 250 ML IVPB SCH (12:01)
--- NOTE | 2021-10-07 13:06 | P.PN ---
Subjective Progress Note Date: 10/07/21 65-year-old white female patient, non-vaccinated against COVID-19, ex-smoker, with history of COPD with a baseline FEV1 of 2.49 or 90% of predicted consistent with a minimal obstructive airways disease with good response to bronchodilators, usually not oxygen dependent at baseline, chronic back pain, previous history of melanoma with surgical resection. Patient presented to the emergency department on 10/04/2021 with symptoms of shortness of breath, fever, cough, and diarrhea, her symptoms have been present for 6 days. Chest x-ray in the emergency department showed mild bilateral posterior lower lobe pneumonia. She tested positive for COVID-19 by PCR test, her white blood cell, was 7.6, hemoglobin was 16.3, platelet count was 139, INR was 1.0, sodium was 1:30, potassium was 3.7, chloride was 99, CO2 is 22, BUN was 12, creatinine was 0.86, ferritin level was 316, LDH was 530, LFTs were within normal limits, CRP of 6.3, pro-calcitonin level was negative at 0.07, patient was started on IV hydration, IV Decadron 6 mg daily, prophylactic Lovenox, COVID-19 vitamins, and patient is a good candidate for Remdesivir due to her length of symptoms on which she will be started today. On 10/06/2021 patient seen in follow-up on medical surgical floor, she still wheezy, coughs a lot with any movement, lung sounds reveal diffuse wheezes and crackles, she is currently on day 2 of Remdesivir treatment, she is on Decadron 6 mg IV push once daily, and she is on prophylactic Lovenox. IV fluids are still infusing at 100 ML per hour, patient states she is drinking plenty of fluids however her appetite is poor as she does not taste much. Today's reviewed, with blood cell count is 6.1, hemoglobin is 12.6, d-dimer is improved and is down to 0.57, electrolytes are within normal limits, and profile is within normal limits. Today's labs her LDH is down to 163, CRP is also improved and is down to 2.4. proCalcitonin level was negative at 0.07. On 10/07/2021 patient seen in follow-up on medical surgical floor. She is sounding better, less dyspneic and bronchospastic, she looks more comfortable, she is currently on 3 L of oxygen, pulse ox is 95%, afebrile, hemodynamically stable, she continues on Remdesivir, today is day 3 of treatment, she is on IV Solu-Medrol, inhaled bronchodilators with Symbicort and Ventolin, she is on cough syrup, clinically seems to be improving, sounds better on today's exam, minimal crackles, and minimal wheezes. Today's labs are still pending. She continues on Lovenox at prophylactic dose, her last d-dimer on yesterday's labs was normal at 0.57. Objective - Vital Signs Vital signs: Vital Signs Temp 98.2 F 10/07/21 10:25 Pulse 76 10/07/21 10:25 Resp 17 10/07/21 10:25 BP 122/76 10/07/21 10:25 Pulse Ox 95 10/07/21 10:25 Intake & Output 10/06/21 10/07/21 10/07/21 18:59 06:59 18:59 Intake Total 1960 100 Output Total 1000 Balance 960 100 Weight 65.771 kg Intake: Intake, IV Titration 1560 Amount Sodium Chloride 0.9% 1, 1560 000 ml @ 130 mls/hr IV . Q7H42M [facility] Rx#:[id number] Oral 400 100 Output: Urine 1000 Other: Voiding Method Toilet Toilet # Voids 4 5 - Exam GENERAL EXAM: Alert, very pleasant, 55-year-old white female, on 3 L of oxygen the process of 94% comfortable in no apparent distress. HEAD: Normocephalic/atraumatic. EYES: Normal reaction of pupils, equal size. Conjunctiva pink, sclera white. NOSE: Clear with pink turbinates. THROAT: No erythema or exudates. NECK: No masses, no JVD, no thyroid enlargement, no adenopathy. CHEST: No chest wall deformity. Symmetrical expansion. LUNGS: Equal air entry with minimal crackles and hardly any wheezes CVS: Regular rate and rhythm, normal S1 and S2, no gallops, no murmurs, no rubs ABDOMEN: Soft, nontender. No hepatosplenomegaly, normal bowel sounds, no guarding or rigidity. EXTREMITIES: No clubbing, no edema, no cyanosis, 2+ pulses and upper and lower extremities. MUSCULOSKELETAL: Muscle strength and tone normal. SPINE: No scoliosis or deformity SKIN: No rashes CENTRAL NERVOUS SYSTEM: Alert and oriented -3. No focal deficits, tone is normal in all 4 extremities. PSYCHIATRIC: Alert and oriented -3. Appropriate affect. Intact judgment and insight. - Labs CBC & Chem 7: 10/06/21 06:56 10/06/21 06:56 Assessment and Plan Plan: Assessment: #1. Acute hypoxic respiratory failure related to acute COVID-19 related pneumonia, patient came into the emergency department on 10/04/2021 with 6 day history of symptoms. She is a non-vaccinated adult. She started on Remdesivir today on 10/05/2021 #2. History of COPD, mild, with last PFT showing mild to moderate obstructive airway disease with good response to bronchodilators and FEV1 2.49 or 90% of predicted with good bronchodilator response #3. Ex-smoker, quit smoking 10 weeks ago #4. History of melanoma on her back status post resection #5. Osteoarthritis #6. Previous history of pneumonia #7. Acute exacerbation of COPD/chronic bronchial asthma, improving Plan: Continue current medical treatment, Continue Remdesivir, today is day 3 of treatment Continue IV Solu-Medrol, patient is less dyspneic and bronchospastic Continue weaning FiO2 to keep O2 sats ration is at 88% and above She is breathing comfortably, minimal wheezing and coughing If continues to improve may consider discharge home in the next 24-48 hours I performed a history & physical examination of the patient and discussed their management with my nurse practitioner, Donna Batista. I reviewed the nurse practitioner's note and agree with the documented findings and plan of care. Lung sounds are positive for diminished breath sounds throughout the lung gordon. The findings and the impression was discussed with the patient. I attest to the documentation by the nurse practitioner. Time with Patient: Less than 30
[2021-10-07] MEDS: ALPRAZolam 0.5 MG TAB PO PRN (19:48)
--- NOTE | 2021-10-07 19:53 | P.PN ---
Subjective Patient presents because she was tested positive for Covid about 6 days ago and now she is complaining of from increasing dyspnea and weakness. Also she has nausea vomiting This is a pleasant 55 years old female with past medical history of osteoa rthritis, seizure disorder, chronic back pain, 1 functioning solitary kidney Patient states that her symptoms started 6 days ago with dyspnea, coughing with some chest pain from coughing and also she has some diarrhea and vomiting and fever at home 3 days ago she went to health department and she was tested positive for Covid. Patient does not have PCP and does not see any other doctor. No abdominal pain or urinary complaints. No headache or weakness On admission she is mildly hypoxic and currently she is on 4 L oxygen with saturation of 93% LDH is normal at 5:30, C-reactive protein is slightly elevated at 6.3. CBC is unremarkable except for mild lymphopenia at 0.8. Sodium is 1:30, creat inine normal. Covid test is positive Chest x-ray showing bilateral infiltrate Priorcalcitonin is pending. Patient is a sore discharged on dexamethasone, vitamin C, D and zinc, Pepcid and Lovenox 10/06/2021 Patient admitted with bilateral Covid pneumonia and she has very significant coughing that bothering her causing her chest pain and more severe in the left lower quadrant abdominal pain, she was in severe distress this morning due to her pain, CT of the abdomen and pelvis with contrast after explaining risks including but not limited to risk of nephrotoxicity and patient agrees showed no acute abnormality to explain patient's symptoms most likely her pain is secondary to coughing. She is already on Robitussin before meals and Tessalon is admitted today. Also there is some evidence of stool burden on CT therefore we are going to give her 3 days of Colace. Dexamethasone was switched to Solu- Medrol 60 mg today for her elements of COPD exacerbation. Other than that her oxygen requirement actually improved for down to 3 L/m. LDH is normal at 163, CRP improved down to 2.4. Pro-calcitonin is -0.07. Treatments and multiple vitamins. And on remdesivir ( last dose 10/09) 10/07/2021 Patient looks better to me, she is sitting up in bed although she is in significant distress due to severe coughing this morning, she remains on Robitussin before meals and Tessalon. However her breathing pattern is improving, she needs less oxygen now on 3 L/m instead of 4 L. And she has very minimal wheezing on examination with no prolonged expiration Remains on Solu-Medrol, today she continue on remdesivir ( last dose 10/08 or ) Possible discharge in 24-48 hours if she keeps improving Objective - Vital Signs Vital signs: Vital Signs Temp 98.2 F 10/07/21 10:25 Pulse 76 10/07/21 10:25 Resp 17 10/07/21 10:25 BP 122/76 10/07/21 10:25 Pulse Ox 95 10/07/21 10:25 Intake & Output 10/06/21 10/07/21 10/07/21 18:59 06:59 18:59 Intake Total 1960 100 Output Total 1000 Balance 960 100 Weight 65.771 kg Intake: Intake, IV Titration 1560 Amount Sodium Chloride 0.9% 1, 1560 000 ml @ 130 mls/hr IV . Q7H42M [facility] Rx#:[id number] Oral 400 100 Output: Urine 1000 Other: Voiding Method Toilet Toilet # Voids 4 5 - Exam GENERAL: The patient is alert and oriented x3, not in any acute distress. Well developed, well nourished. HEENT: Pupils are round and equally reacting to light. EOMI. No scleral icterus. No conjunctival pallor. Normocephalic, atraumatic. No pharyngeal erythema. No thyromegaly. CARDIOVASCULAR: S1 and S2 present. No murmurs, rubs, or gallops. -PULMONARY: Chest is clear to auscultation, sattered wheez ABDOMEN: Soft, nontender, nondistended, normoactive bowel sounds. No palpable organomegaly. MUSCULOSKELETAL: No joint swelling or deformity. EXTREMITIES: No cyanosis, clubbing, or pedal edema. NEUROLOGICAL: Gross neurological examination did not reveal any focal deficits. SKIN: No rashes. no petechiae. - Labs CBC & Chem 7: 10/06/21 06:56 10/06/21 06:56 Labs: Abnormal Lab Results - Last 24 Hours (Table) 10/06/21 10/06/21 Range/Units 06:56 06:56 RBC 4.05 L (4.10-5.20) X 10*6/uL Immature Gran # 0.08 H (0.00-0.04) X 10*3/uL Eosinophils # 0 L (0.04-0.35) X 10*3/uL Anion Gap 9.30 L (10.00-18.00) mmol/L Glucose 120 H (70-110) mg/dL Total Bilirubin <0.20 L (0.30-1.20) mg/dL C-Reactive Protein 2.40 H (0.00-0.80) mg/dL Total Protein 4.8 L (6.2-8.2) g/dL Albumin 3.0 L (3.8-4.9) g/dL Assessment and Plan Assessment: Bilateral Covid pneumonia Acute hypoxic respiratory failure Increased inflammatory markers acute COPD exacerbation Significant coughing secondary to above causing left lower quadrant abdominal pain History of osteoarthritis History of seizure disorder Chronic back pain Unilateral kidney Plan: This is a pleasant 55 years old female who presents with bilateral Covid pneumonia Continue with Solu-Medrol 60 mg Continue with vitamin C, vitamin D and zinc Pulmonary consult Patient was started on remdesivir Labs and medication were reviewed.. Continue same treatment. Continue with symptomatic treatment. Resume home medication. Monitor lytes and vitals. DVT and GI prophylaxis. Further recommendations as per clinical course of the patient DVT prophylaxis: Subcutaneous heparin GI Prophylaxis: Pepcid
[2021-10-08] MEDS: methylPREDNISolone SOD SUCCI 125 MG/2 ML VIAL IV SCH ×4 (00:41→17:02)
[2021-10-08] MEDS: MELATONIN 3 MG TABLET PO PRN (00:46)
[2021-10-08] MEDS: DOCUSATE 100 MG CAP PO SCH ×3 (00:46→20:18)
[2021-10-08] MEDS: ENOXAPARIN 40 MG/0.4 ML SYRINGE SQ SCH (07:52)
[2021-10-08] MEDS: FAMOTIDINE 20 MG TAB PO SCH (07:52)
[2021-10-08] MEDS: CHOLECALCIFEROL 25 MCG (1000 IU) TABLET PO SCH (07:52)
[2021-10-08] MEDS: ZINC SULFATE 220 MG CAP PO SCH (07:53)
[2021-10-08] MEDS: guaiFENesin-Coden 100-10MG/5ML 10 ML CUP PO PRN (07:54)
[2021-10-08] MEDS: ASCORBIC ACID 500 MG TAB PO SCH (07:54)
[2021-10-08] MEDS: ALBUTEROL HFA INHALER INHALATION PRN ×3 (07:55→21:51)
[2021-10-08] MEDS: ALPRAZolam 0.5 MG TAB PO PRN ×2 (08:00→20:18)
[2021-10-08] MEDS: SYMBICORT 160-4.5 MCG INHALER INHALATION SCH ×2 (11:55→21:51)
--- NOTE | 2021-10-08 13:04 | P.PN ---
Subjective Patient presents because she was tested positive for Covid about 6 days ago and now she is complaining of from increasing dyspnea and weakness. Also she has nausea vomiting This is a pleasant 55 years old female with past medical history of osteoa rthritis, seizure disorder, chronic back pain, 1 functioning solitary kidney Patient states that her symptoms started 6 days ago with dyspnea, coughing with some chest pain from coughing and also she has some diarrhea and vomiting and fever at home 3 days ago she went to health department and she was tested positive for Covid. Patient does not have PCP and does not see any other doctor. No abdominal pain or urinary complaints. No headache or weakness On admission she is mildly hypoxic and currently she is on 4 L oxygen with saturation of 93% LDH is normal at 5:30, C-reactive protein is slightly elevated at 6.3. CBC is unremarkable except for mild lymphopenia at 0.8. Sodium is 1:30, creat inine normal. Covid test is positive Chest x-ray showing bilateral infiltrate Priorcalcitonin is pending. Patient is a sore discharged on dexamethasone, vitamin C, D and zinc, Pepcid and Lovenox 10/06/2021 Patient admitted with bilateral Covid pneumonia and she has very significant coughing that bothering her causing her chest pain and more severe in the left lower quadrant abdominal pain, she was in severe distress this morning due to her pain, CT of the abdomen and pelvis with contrast after explaining risks including but not limited to risk of nephrotoxicity and patient agrees showed no acute abnormality to explain patient's symptoms most likely her pain is secondary to coughing. She is already on Robitussin before meals and Tessalon is admitted today. Also there is some evidence of stool burden on CT therefore we are going to give her 3 days of Colace. Dexamethasone was switched to Solu- Medrol 60 mg today for her elements of COPD exacerbation. Other than that her oxygen requirement actually improved for down to 3 L/m. LDH is normal at 163, CRP improved down to 2.4. Pro-calcitonin is -0.07. Treatments and multiple vitamins. And on remdesivir ( last dose 10/09) 10/07/2021 Patient looks better to me, she is sitting up in bed although she is in significant distress due to severe coughing this morning, she remains on Robitussin before meals and Tessalon. However her breathing pattern is improving, she needs less oxygen now on 3 L/m instead of 4 L. And she has very minimal wheezing on examination with no prolonged expiration Remains on Solu-Medrol, today she continue on remdesivir ( last dose 10/08 or ) Possible discharge in 24-48 hours if she keeps improving 10/08/2021 Patient breathing and coughing are improving significantly however patient looks more sad and crying today because it is her mother anniversary where she about 1 year ago. Because of this patient does not feel she is ready to go home today. Emotional support is provided for the patient. She is on Xanax and Skandia as needed Vitals are stable and she is saturating 96% on 3 24 L/m. No labs She remains on Solu-Medrol 60 mg, multiple vitamins. Tomorrow her last dose of remdesivir. Objective - Vital Signs Vital signs: Vital Signs Temp 97.8 F 10/08/21 10:06 Pulse 99 10/08/21 10:06 Resp 17 10/08/21 10:06 BP 125/86 10/08/21 10:06 Pulse Ox 94 L 10/08/21 10:06 Intake & Output 10/07/21 10/08/21 10/08/21 18:59 06:59 18:59 Intake Total 100 Balance 100 Intake: Oral 100 Other: Voiding Method Toilet Toilet # Voids 2 3 - Exam GENERAL: The patient is alert and oriented x3, not in any acute distress. Well developed, well nourished. HEENT: Pupils are round and equally reacting to light. EOMI. No scleral icterus. No conjunctival pallor. Normocephalic, atraumatic. No pharyngeal erythema. No thyromegaly. CARDIOVASCULAR: S1 and S2 present. No murmurs, rubs, or gallops. -PULMONARY: Chest is clear to auscultation, sattered wheez ABDOMEN: Soft, nontender, nondistended, normoactive bowel sounds. No palpable organomegaly. MUSCULOSKELETAL: No joint swelling or deformity. EXTREMITIES: No cyanosis, clubbing, or pedal edema. NEUROLOGICAL: Gross neurological examination did not reveal any focal deficits. SKIN: No rashes. no petechiae. - Labs CBC & Chem 7: 10/06/21 06:56 10/06/21 06:56 Assessment and Plan Assessment: Bilateral Covid pneumonia Acute hypoxic respiratory failure Increased inflammatory markers acute COPD exacerbation Ongoing bereavement secondary to family of her mother about 1y ago Significant coughing secondary to above causing left lower quadrant abdominal pain History of osteoarthritis History of seizure disorder Chronic back pain Unilateral kidney Plan: This is a pleasant 55 years old female who presents with bilateral Covid pneumonia Continue with Solu-Medrol 60 mg Continue with vitamin C, vitamin D and zinc Pulmonary consult Patient was started on remdesivir Xanax for anxiety Skandia for her left lower quadrant abdominal pain Labs and medication were reviewed.. Continue same treatment. Continue with symptomatic treatment. Resume home medication. Monitor lytes and vitals. DVT and GI prophylaxis. Further recommendations as per clinical course of the patient DVT prophylaxis: Subcutaneous heparin GI Prophylaxis: Pepcid
[2021-10-08] MEDS: MORPHINE SULFATE 4 MG/ML SYRINGE IVP PRN ×2 (13:07→20:18)
[2021-10-08] MEDS: REMDESIVIR 100 MG in SODIUM CHLORIDE 0.9% 250 ML IVPB SCH (13:08)
--- NOTE | 2021-10-08 15:04 | P.PN ---
Subjective Progress Note Date: 10/08/21 65-year-old white female patient, non-vaccinated against COVID-19, ex-smoker, with history of COPD with a baseline FEV1 of 2.49 or 90% of predicted consistent with a minimal obstructive airways disease with good response to bronchodilators, usually not oxygen dependent at baseline, chronic back pain, previous history of melanoma with surgical resection. Patient presented to the emergency department on 10/04/2021 with symptoms of shortness of breath, fever, cough, and diarrhea, her symptoms have been present for 6 days. Chest x-ray in the emergency department showed mild bilateral posterior lower lobe pneumonia. She tested positive for COVID-19 by PCR test, her white blood cell, was 7.6, hemoglobin was 16.3, platelet count was 139, INR was 1.0, sodium was 1:30, potassium was 3.7, chloride was 99, CO2 is 22, BUN was 12, creatinine was 0.86, ferritin level was 316, LDH was 530, LFTs were within normal limits, CRP of 6.3, pro-calcitonin level was negative at 0.07, patient was started on IV hydration, IV Decadron 6 mg daily, prophylactic Lovenox, COVID-19 vitamins, and patient is a good candidate for Remdesivir due to her length of symptoms on which she will be started today. On 10/06/2021 patient seen in follow-up on medical surgical floor, she still wheezy, coughs a lot with any movement, lung sounds reveal diffuse wheezes and crackles, she is currently on day 2 of Remdesivir treatment, she is on Decadron 6 mg IV push once daily, and she is on prophylactic Lovenox. IV fluids are still infusing at 100 ML per hour, patient states she is drinking plenty of fluids however her appetite is poor as she does not taste much. Today's reviewed, with blood cell count is 6.1, hemoglobin is 12.6, d-dimer is improved and is down to 0.57, electrolytes are within normal limits, and profile is within normal limits. Today's labs her LDH is down to 163, CRP is also improved and is down to 2.4. proCalcitonin level was negative at 0.07. On 10/07/2021 patient seen in follow-up on medical surgical floor. She is sounding better, less dyspneic and bronchospastic, she looks more comfortable, she is currently on 3 L of oxygen, pulse ox is 95%, afebrile, hemodynamically stable, she continues on Remdesivir, today is day 3 of treatment, she is on IV Solu-Medrol, inhaled bronchodilators with Symbicort and Ventolin, she is on cough syrup, clinically seems to be improving, sounds better on today's exam, minimal crackles, and minimal wheezes. Today's labs are still pending. She continues on Lovenox at prophylactic dose, her last d-dimer on yesterday's labs was normal at 0.57. On 10/08/2021 patient seen in follow-up on medical surgical floor, she still congested and coughing, but less wheezy, less dyspneic, she continues on 3 and half liters of supplemental oxygen, continues on Remdesivir, and today is day 4 of treatment, she continues on IV Solu-Medrol for acute exacerbation of COPD, she is on cough syrup, Symbicort and albuterol, overall she is improving although her cough is still remains an issue and patient thinks she may have pulled a muscle in her abdomen because it hurts when she coughs. But abdomen is soft, nontender. Vital signs have been stable, she has been afebrile, her chest x-ray today. Lung sounds reveal crackles at bilateral bases, scattered rhonchi, no wheezing Objective - Vital Signs Vital signs: Vital Signs Temp 98.2 F 10/08/21 14:52 Pulse 77 10/08/21 14:52 Resp 16 10/08/21 14:52 BP 137/91 10/08/21 14:52 Pulse Ox 97 10/08/21 14:52 Intake & Output 10/07/21 10/08/21 10/08/21 18:59 06:59 18:59 Intake Total 100 Balance 100 Intake: Oral 100 Other: Voiding Method Toilet Toilet # Voids 2 3 - Exam GENERAL EXAM: Alert, very pleasant, 55-year-old white female, on 3,5 L of oxygen the process of 94% comfortable in no apparent distress. HEAD: Normocephalic/atraumatic. EYES: Normal reaction of pupils, equal size. Conjunctiva pink, sclera white. NOSE: Clear with pink turbinates. THROAT: No erythema or exudates. NECK: No masses, no JVD, no thyroid enlargement, no adenopathy. CHEST: No chest wall deformity. Symmetrical expansion. LUNGS: Equal air entry with minimal crackles and hardly any wheezes CVS: Regular rate and rhythm, normal S1 and S2, no gallops, no murmurs, no rubs ABDOMEN: Soft, nontender. No hepatosplenomegaly, normal bowel sounds, no guarding or rigidity. EXTREMITIES: No clubbing, no edema, no cyanosis, 2+ pulses and upper and lower extremities. MUSCULOSKELETAL: Muscle strength and tone normal. SPINE: No scoliosis or deformity SKIN: No rashes CENTRAL NERVOUS SYSTEM: Alert and oriented -3. No focal deficits, tone is normal in all 4 extremities. PSYCHIATRIC: Alert and oriented -3. Appropriate affect. Intact judgment and insight. - Labs CBC & Chem 7: 10/06/21 06:56 10/06/21 06:56 Assessment and Plan Plan: Assessment: #1. Acute hypoxic respiratory failure related to acute COVID-19 related pneumonia, patient came into the emergency department on 10/04/2021 with 6 day history of symptoms. She is a non-vaccinated adult. She started on Remdesivir today on 10/05/2021 #2. History of COPD, mild, with last PFT showing mild to moderate obstructive airway disease with good response to bronchodilators and FEV1 2.49 or 90% of predicted with good bronchodilator response #3. Ex-smoker, quit smoking 10 weeks ago #4. History of melanoma on her back status post resection #5. Osteoarthritis #6. Previous history of pneumonia #7. Acute exacerbation of COPD/chronic bronchial asthma, improving Plan: Continue current medical treatment, Continue Remdesivir, today is day 4 of treatment Continue IV Solu-Medrol 60 mg every 6 hours, Patient continues to have coughing fits, We'll schedule Robitussin-AC [id number] Continue weaning FiO2 to keep O2 sat saturation's at or above 88% Obtain follow-up chest x-ray tomorrow, obtain follow-up inflammatory markers and d-dimer I performed a history & physical examination of the patient and discussed their management with my nurse practitioner, Donna Batista. I reviewed the nurse practitioner's note and agree with the documented findings and plan of care. Lung sounds are positive for diminished breath sounds throughout the lung gordon. The findings and the impression was discussed with the patient. I attest to the documentation by the nurse practitioner. Time with Patient: Less than 30
[2021-10-08] MEDS: guaiFENesin-Coden 100-10MG/5ML 10 ML CUP PO SCH (17:02)
[2021-10-09] MEDS: guaiFENesin-Coden 100-10MG/5ML 10 ML CUP PO SCH ×3 (00:16→11:28)
[2021-10-09] MEDS: methylPREDNISolone SOD SUCCI 125 MG/2 ML VIAL IV SCH ×3 (00:16→11:28)
[2021-10-09] MEDS: ENOXAPARIN 40 MG/0.4 ML SYRINGE SQ SCH (08:24)
[2021-10-09] MEDS: DOCUSATE 100 MG CAP PO SCH (08:24)
[2021-10-09] MEDS: FAMOTIDINE 20 MG TAB PO SCH (08:24)
[2021-10-09] MEDS: ASCORBIC ACID 500 MG TAB PO SCH (08:25)
[2021-10-09] MEDS: CHOLECALCIFEROL 25 MCG (1000 IU) TABLET PO SCH (08:26)
[2021-10-09] MEDS: ZINC SULFATE 220 MG CAP PO SCH (08:42)
--- NOTE | 2021-10-09 08:47 | XR ---
EXAMINATION TYPE: XR chest 1V portable DATE OF EXAM: 10/09/2021 Comparison: 10/04/2021 Clinical History: 55-year-old female COVID Findings: Heart limits of normal in size. Increased interstitial density without focal consolidation or pleural effusion. Impression: Similar slight increased interstitial density could represent subtle cold infiltrates. No aj airsp lisa disease.
[2021-10-09 09:04] LABS: Basophils # (A) 0.07 X 10*3/uL (0.00-0.10); Basophils % (A) 0.8 %; Eosinophils # (A) 0 X 10*3/uL (0.04-0.35); Eosinophils % (A) 0 %; HCT 43.6 % (37.2-46.3); HGB 14.2 g/dL (12.0-15.0); Lymphocytes # (A) 0.89 X 10*3/uL (0.90-5.00); Lymphocytes % (A) 9.7 %; MCH 30.5 pg (27.0-32.0); MCHC 32.6 g/dL (32.0-37.0); MCV 93.6 fL (80.0-97.0); Mean Platelet Volume 9.7 fL (9.5-12.2); Monocytes # (A) 0.44 X 10*3/uL (0.20-1.00); Monocytes % (A) 4.8 %; Neutrophils # (A) 7.34 X 10*3/uL (1.80-7.70); Platelet Count 351 X 10*3/uL (140-440); RBC 4.66 X 10*6/uL (4.10-5.20); RDW 11.9 % (11.5-14.5); WBC 9.17 X 10*3/uL (4.50-10.00)
[2021-10-09] MEDS: ALBUTEROL HFA INHALER INHALATION PRN ×2 (10:10→13:07)
[2021-10-09] MEDS: SYMBICORT 160-4.5 MCG INHALER INHALATION SCH (10:10)
[2021-10-09 10:21] LABS: African American GFR (CKD) 100.7 (60.0-200.0); Anion Gap 9.9 mmol/L (10.00-18.00); BUN/Creat Ratio 23.37 Ratio (12.00-20.00); Blood Urea Nitrogen 17.9 mg/dL (9.0-27.0); C Reactive Protein 0.4 mg/dL (0.00-0.80); Calcium 9.4 mg/dL (8.7-10.3); Carbon Dioxide 23.9 mmol/L (20.0-27.5); Non-African American GFR(CKD) 86.9 (60.0-200.0); Potassium 4.1 mmol/L (3.5-5.5)
[2021-10-09] MEDS: REMDESIVIR 100 MG in SODIUM CHLORIDE 0.9% 250 ML IVPB SCH (14:01)
--- NOTE | 2021-10-09 14:21 | P.PN ---
Subjective Progress Note Date: 10/09/21 65-year-old white female patient, non-vaccinated against COVID-19, ex-smoker, with history of COPD with a baseline FEV1 of 2.49 or 90% of predicted consistent with a minimal obstructive airways disease with good response to bronchodilators, usually not oxygen dependent at baseline, chronic back pain, previous history of melanoma with surgical resection. Patient presented to the emergency department on 10/04/2021 with symptoms of shortness of breath, fever, cough, and diarrhea, her symptoms have been present for 6 days. Chest x-ray in the emergency department showed mild bilateral posterior lower lobe pneumonia. She tested positive for COVID-19 by PCR test, her white blood cell, was 7.6, hemoglobin was 16.3, platelet count was 139, INR was 1.0, sodium was 1:30, potassium was 3.7, chloride was 99, CO2 is 22, BUN was 12, creatinine was 0.86, ferritin level was 316, LDH was 530, LFTs were within normal limits, CRP of 6.3, pro-calcitonin level was negative at 0.07, patient was started on IV hydration, IV Decadron 6 mg daily, prophylactic Lovenox, COVID-19 vitamins, and patient is a good candidate for Remdesivir due to her length of symptoms on which she will be started today. On 10/06/2021 patient seen in follow-up on medical surgical floor, she still wheezy, coughs a lot with any movement, lung sounds reveal diffuse wheezes and crackles, she is currently on day 2 of Remdesivir treatment, she is on Decadron 6 mg IV push once daily, and she is on prophylactic Lovenox. IV fluids are still infusing at 100 ML per hour, patient states she is drinking plenty of fluids however her appetite is poor as she does not taste much. Today's reviewed, with blood cell count is 6.1, hemoglobin is 12.6, d-dimer is improved and is down to 0.57, electrolytes are within normal limits, and profile is within normal limits. Today's labs her LDH is down to 163, CRP is also improved and is down to 2.4. proCalcitonin level was negative at 0.07. On 10/07/2021 patient seen in follow-up on medical surgical floor. She is sounding better, less dyspneic and bronchospastic, she looks more comfortable, she is currently on 3 L of oxygen, pulse ox is 95%, afebrile, hemodynamically stable, she continues on Remdesivir, today is day 3 of treatment, she is on IV Solu-Medrol, inhaled bronchodilators with Symbicort and Ventolin, she is on cough syrup, clinically seems to be improving, sounds better on today's exam, minimal crackles, and minimal wheezes. Today's labs are still pending. She continues on Lovenox at prophylactic dose, her last d-dimer on yesterday's labs was normal at 0.57. On 10/08/2021 patient seen in follow-up on medical surgical floor, she still congested and coughing, but less wheezy, less dyspneic, she continues on 3 and half liters of supplemental oxygen, continues on Remdesivir, and today is day 4 of treatment, she continues on IV Solu-Medrol for acute exacerbation of COPD, she is on cough syrup, Symbicort and albuterol, overall she is improving although her cough is still remains an issue and patient thinks she may have pulled a muscle in her abdomen because it hurts when she coughs. But abdomen is soft, nontender. Vital signs have been stable, she has been afebrile, her chest x-ray today. Lung sounds reveal crackles at bilateral bases, scattered rhonchi, no wheezing On 10/09/2021 patient seen in follow-up on medical surgical floor. She is breathing much easier today, less coughing, no wheezing, she is currently on 3 L of oxygen per pulse ox is 93-94%. She states she is feeling much better, the cough and wheezing had subsided significantly. She is tolerating ambulation to the bathroom. No fever or chills, vital signs have been stable. Chest x-ray today shows slight increased interstitial density and no aj airspace disease. Today's labs have been reviewed, with blood cell count is 9.17, hemoglobin is 14.2, d-dimer is negative at 0.56, electrolytes were within normal limits, BUN is 17 creatinine 0.8, LDH is 213, CRP 0.40. Objective - Vital Signs Vital signs: Vital Signs Temp 97.8 F 10/09/21 09:34 Pulse 76 10/09/21 09:34 Resp 18 10/09/21 06:00 BP 118/74 10/09/21 09:34 Pulse Ox 93 L 10/09/21 09:34 Intake & Output 10/08/21 10/09/21 10/09/21 18:59 06:59 18:59 Other: Voiding Method Toilet # Voids 3 1 - Exam GENERAL EXAM: Alert, very pleasant, 55-year-old white female, on 3 L of oxygen t he process of 93% comfortable in no apparent distress. HEAD: Normocephalic/atraumatic. EYES: Normal reaction of pupils, equal size. Conjunctiva pink, sclera white. NOSE: Clear with pink turbinates. THROAT: No erythema or exudates. NECK: No masses, no JVD, no thyroid enlargement, no adenopathy. CHEST: No chest wall deformity. Symmetrical expansion. LUNGS: Equal air entry with a few rhonchi, no wheezes, no crackles CVS: Regular rate and rhythm, normal S1 and S2, no gallops, no murmurs, no rubs ABDOMEN: Soft, nontender. No hepatosplenomegaly, normal bowel sounds, no guarding or rigidity. EXTREMITIES: No clubbing, no edema, no cyanosis, 2+ pulses and upper and lower extremities. MUSCULOSKELETAL: Muscle strength and tone normal. SPINE: No scoliosis or deformity SKIN: No rashes CENTRAL NERVOUS SYSTEM: Alert and oriented -3. No focal deficits, tone is normal in all 4 extremities. PSYCHIATRIC: Alert and oriented -3. Appropriate affect. Intact judgment and insight. - Labs CBC & Chem 7: 10/09/21 06:27 10/09/21 06:27 Labs: Abnormal Lab Results - Last 24 Hours (Table) 10/09/21 10/09/21 Range/Units 06:27 06:27 Immature Gran # 0.43 H (0.00-0.04) X 10*3/uL Lymphocytes # 0.89 L (0.90-5.00) X 10*3/uL Eosinophils # 0 L (0.04-0.35) X 10*3/uL Anion Gap 9.90 L (10.00-18.00) mmol/L BUN/Creatinine Ratio 23.37 H (12.00-20.00) Ratio Glucose 124 H (70-110) mg/dL Assessment and Plan Plan: Assessment: #1. Acute hypoxic respiratory failure related to acute COVID-19 related pneumonia, patient came into the emergency department on 10/04/2021 with 6 day history of symptoms. She is a non-vaccinated adult. She started on Remdesivir today on 10/05/2021 #2. History of COPD, mild, with last PFT showing mild to moderate obstructive a irway disease with good response to bronchodilators and FEV1 2.49 or 90% of predicted with good bronchodilator response #3. Ex-smoker, quit smoking 10 weeks ago #4. History of melanoma on her back status post resection #5. Osteoarthritis #6. Previous history of pneumonia #7. Acute exacerbation of COPD/chronic bronchial asthma, improving Plan: Patient has completed her Remdesivir She can be switched over to prednisone Clinically she has significantly improved, Coughing has improved, no wheezing Follow-up chest x-ray has been reviewed There is no airspace disease, no pneumonia on the chest x-ray Inflammatory markers and d-dimer are all within normal limits From pulmonary perspective she stable for discharge home today on prednisone taper Continue cough syrup, she can continue on multivitamins and albuterol inhaler Outpatient follow-up with Dr. Bradley in the office, this is the patient's pulmonary provider, in 2 weeks I performed a history & physical examination of the patient and discussed their management with my nurse practitioner, Donna Batista. I reviewed the nurse practitioner's note and agree with the documented findings and plan of care. Lung sounds are positive for diminished breath sounds throughout the lung gordon. The findings and the impression was discussed with the patient. I attest to the documentation by the nurse practitioner. Time with Patient: Less than 30
[2021-10-09 14:35] VITALS: BP 163/90; PULSE 85; RESP 17; TEMP 98.1
--- NOTE | 2021-10-09 22:08 | P.DS ---
Providers Date of admission: 10/04/21 23:20 Attending physician: Adonay Crowley MD Consults: 10/04/21 22:17 Consult Physician Urgent Consulting Provider: Anjum Lim Consult Reason/Comments: hypoxia Do you want consulting provider notified?: Yes Primary care physician: Anjum Lim Hospital Course: Diagnoses: Acute COPD exacerbation Bilateral Covid pneumonia Acute hypoxic respiratory failure Increased inflammatory markers acute COPD exacerbation Ongoing bereavement secondary to family of her mother about 1y ago, mild on the day of discharge Significant coughing secondary to above causing left lower quadrant abdominal pain History of osteoarthritis History of seizure disorder Chronic back pain Unilateral kidney Hospital course: Patient presents because she was tested positive for Covid about 6 days earlier and now she is complaining of from increasing dyspnea and weakness. Patient presents with dyspnea and significant coughing causing her some chest pain but more left lower quadrant abdominal pain however CT of the abdomen and pelvis was negative for acute process. Patient has been evaluated by clerical specialist and she was treated with vitamin C, vitamin D and zinc also she received a full course of 5 days of remdesivir , her last dose was today. She was placed on steroids Solu-Medrol 60 mg 4 times a day before her COPD and also to was beneficial for Covid pneumonia and given Robitussin before meals Patient showed interval improvement in her symptoms significantly improved on the day of discharge, her dyspnea is minimal, chest pain and coughing better controlled and her left lower abdominal pain also is better controlled. Patient was pleasant happy with the progress she made and she was eager to be discharged home today. Patient qualify for home oxygen which is delivered at bedside per to discharge, confirmed with staff Patient was cleared for discharge by clerical specialist. Problems and management plan were discussed with the patient and he verbalized understanding and acceptance Patient was found stable and can be discharged home however he needs follow-up as an outpatient. Patient was instructed to follow up with PCP Dr. Eng/Dr. Bradley OR also her pulmonary team within one to two week and patient agrees to call and make her own appointment Physical exam Gen: patient is a AAOx3, no distress CVS: S1-S2, RRR, no murmur Lungs: B/L CTA, no wheezing Abdomen: soft, no distention, no tenderness, positive bowel sounds Extremity: no leg edema or induration Time spent more than 35 minutes Patient Condition at Discharge: Stable Plan - Discharge Summary Discharge Rx Participant: No New Discharge Prescriptions: New Zinc Sulfate [Orazinc] 220 mg PO DAILY #30 cap Famotidine [Pepcid] 40 mg PO DAILY #60 tab guaiFENesin-Coden 100-10MG/5ML [Robitussin AC] 10 ml PO Q6HR PRN 3 Days #100 ml PRN Reason: Cough Ascorbic Acid [Vitamin C] 1,000 mg PO DAILY #60 tab predniSONE 10 mg PO DIRECTED #30 tab Cholecalciferol [Vitamin D3 (25 Mcg = 1000 Iu)] 50 mcg PO DAILY #60 tablet Continue Albuterol Sulfate [Proair Hfa] 1 - 2 puff INHALATION RT-QID PRN #1 each PRN Reason: Shortness Of Breath Discharge Medication List Albuterol Sulfate [Proair Hfa] 1 - 2 puff INHALATION RT-QID PRN #1 each 10/09/21 [Rx] Ascorbic Acid [Vitamin C] 1,000 mg PO DAILY #60 tab 10/09/21 [Rx] Cholecalciferol [Vitamin D3 (25 Mcg = 1000 Iu)] 50 mcg PO DAILY #60 tablet 10/09/21 [Rx] Famotidine [Pepcid] 40 mg PO DAILY #60 tab 10/09/21 [Rx] Zinc Sulfate [Orazinc] 220 mg PO DAILY #30 cap 10/09/21 [Rx] guaiFENesin-Coden 100-10MG/5ML [Robitussin AC] 10 ml PO Q6HR PRN 3 Days #100 ml 10/09/21 [Rx] predniSONE 10 mg PO DIRECTED #30 tab 10/09/21 [Rx] Follow up Appointment(s)/Referral(s): [facility], [NON-STAFF] - 1-2 Days (home care will call you to set up appointment any questions please call agency. ) Pawan Bradley MD [STAFF PHYSICIAN] - 2 Weeks Activity/Diet/Wound Care/Special Instructions: low carbohydrate diet Activity as tolerated Discharge Disposition: HOME WITH HOME HEALTH SERVICES Care Plan Goals (MU): [employer] phone [phone], Will deliver portable to room Patietn to call when arrives home to set up concentrator delivery. Any questions please call agency.
== END 2021-10-09 18:13 | disposition home health service (06) | DRG 177 ==
LOC: EC 20:43 → 4SSUR 23:20
PROVIDERS: ADMIT Internal Medicine; ATTEND Internal Medicine
PROC: XW033E5 Introduction of Remdesivir Anti-infective into Peripheral Vein, Percutaneous Approach, New Technology Group 5 (ICD-10-PCS; principal; 2021-10-05)
DX: U07.1 COVID-19 (principal); J12.82 Pneumonia due to coronavirus disease 2019; J96.01 Acute respiratory failure with hypoxia; J44.0 Chronic obstructive pulmonary disease with (acute) lower respiratory infection; J44.1 Chronic obstructive pulmonary disease with (acute) exacerbation; J45.901 Unspecified asthma with (acute) exacerbation; D72.810 Lymphocytopenia; E86.0 Dehydration; F17.200 Nicotine dependence, unspecified, uncomplicated; G40.909 Epilepsy, unspecified, not intractable, without status epilepticus; G89.29 Other chronic pain; J06.9 Acute upper respiratory infection, unspecified; M19.90 Unspecified osteoarthritis, unspecified site; Z63.4 Disappearance and death of family member; Z82.49 Family history of ischemic heart disease and other diseases of the circulatory system; Z85.820 Personal history of malignant melanoma of skin; Z90.710 Acquired absence of both cervix and uterus; M54.9 Dorsalgia, unspecified
CPT/HCPCS: 36415; 71045; 71046; 74177; 80048; 80053; 82728; 83615; 83735; 84145; 85025; 85379; 85610; 85730; 86140; 87635; 94640; 96374; 99285

== ENCOUNTER → 2022-11-26 | Outpatient (CLI) | payer OTHER ==
--- NOTE | 2022-11-26 11:09 | US ---
EXAMINATION TYPE: US extremity nonvasc mass LT DATE OF EXAM: 11/26/2022 COMPARISON: CT 10/06/2021 CLINICAL HISTORY: D17.9 BENIGN LIPOMATOUS NEOPLASM. Palpable areas left forearm, left inner thigh and right forearm TECHNIQUE: Grayscale and color Doppler imaging of the area of concern at the left upper inner thigh. And right forearm. FINDINGS: * Isoechoic area left upper inner thigh, within area of concern = 3.4 x 2.3 x 1.2 cm * Unable to visualize any discrete abnormality by ultrasound within patients area of concern left fo rearm. * Incidental finding: isoechoic area right forearm within patient's area of concern = 2.1 x 2.3 x 0. 6 cm. IMPRESSION: 1. Left upper inner thigh measuring up to 3.4 cm fat-containing lesion likely representing a lipoma. 2. Right forearm area of concern demonstrates a 2.3 cm fat-containing lesion likely representing a l ipoma. 3. No palpable abnormality visualized in the area of left forearm.
--- NOTE | 2022-11-27 08:23 | MM ---
Reason for Exam: Screening (asymptomatic). Patient History: Menarche at age 11. First Full-Term at age 17. Left ovary removed at age 39. Hysterectomy at age 39. Maternal grandmother had breast cancer, age 50. Mother had breast cancer at or over age 50. Sister had breast cancer, age 50. Risk Values: Caitlyn 5 year model risk: 6.4%. NCI Lifetime model risk: 31.7%. Tissue Density: The breast tissue is heterogeneously dense. This may lower the sensitivity of mammography. Findings: Analyzed By CAD. Asymmetric nodular densities along the left breast upper outer quadrant. Additional views are recommended. Scattered benign. Calcifications. Overall Assessment: Incomplete: need additional imaging evaluation, BI-RAD 0 Management: Diagnostic Mammogram of the left breast. A clinical breast exam by your physician is recommended on an annual basis and results should be correlated with mammographic findings. Electronically signed and approved by: Speedy Soria M.D. Radiologis
== END | disposition home or self-care (01) ==
LOC: RADMAMWWP 08:00
PROVIDERS: ATTEND Family Medicine
DX: Z12.31 Encounter for screening mammogram for malignant neoplasm of breast (principal); D17.9 Benign lipomatous neoplasm, unspecified; R22.42 Localized swelling, mass and lump, left lower limb
CPT/HCPCS: 77063; 77067

== ENCOUNTER → 2024-05-20 | Outpatient (CLI) | payer OTHER ==
[2024-05-21 05:55] LABS: Appearance,Urine Turbid (Clear); Bilirubin,Urine Negative (Negative); Blood,Urine Negative (Negative); Color,Urine Dark Yellow (Yellow); Ketones,Urine Trace (Negative); Nitrite,Urine Negative (Negative); PH, Urine 5.5; Specific Gravity,Urine 1.026 (1.001-1.030)
[2024-05-21 06:17] LABS: Bacteria,Urine None Seen (None Seen); Calcium Oxalate Crystals,Urine Present (None Seen)
[2024-05-21 07:36] LABS: Basophils # (A) 0.01 X 10*3/uL (0.00-0.10); Basophils % (A) 0.2 %; Eosinophils # (A) 0.09 X 10*3/uL (0.04-0.35); Eosinophils % (A) 1.6 %; HCT 49.6 % (37.2-46.3); HGB 16.3 g/dL (12.0-15.0); Lymphocytes # (A) 1.23 X 10*3/uL (0.90-5.00); Lymphocytes % (A) 22.3 %; MCH 32.3 pg (27.0-32.0); MCHC 32.9 g/dL (32.0-37.0); MCV 98.4 FL (80.0-97.0); Mean Platelet Volume 10.4 FL (9.5-12.2); Monocytes # (A) 0.33 X 10*3/uL (0.20-1.00); NRBC Per 100 WBC 0 X 10*3/uL (0.00-0.01); Neutrophils # (A) 3.83 X 10*3/uL (1.80-7.70); Neutrophils % (A) 69.5 %; Platelet Count 255 X 10*3/uL (140-440); RBC 5.04 X 10*6/uL (4.10-5.20); RDW 12.1 % (11.5-14.5); WBC 5.51 X 10*3/uL (4.50-10.00)
[2024-05-21 10:20] LABS: BUN/Creat Ratio 9.73 Ratio (12.00-20.00); Blood Urea Nitrogen 10.7 mg/dL (9.0-27.0); Calcium 10.3 mg/dL (8.7-10.3); Carbon Dioxide 23.2 mmol/L (21.6-31.8); Chloride 105 mmol/L (96-109); Glucose 121 mg/dL (70-110); Potassium 3.7 mmol/L (3.5-5.5); Sodium 141 mmol/L (135-145)
== END | disposition home or self-care (01) ==
LOC: LABPAT 11:51
PROVIDERS: ATTEND Urology
DX: Z01.812 Encounter for preprocedural laboratory examination (principal); N39.3 Stress incontinence (female) (male)
CPT/HCPCS: 80048; 81001; 85025; 87086

== ENCOUNTER 2024-05-24 07:30 | Day surgery (SDC) | payer OTHER ==
[2024-05-22 13:45] VITALS: BMI 28.3
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
[~2024-05-24 07:30] MED LIST: LIDOCAINE 1% (10MG/ML) FOR IV START INTRADERMA PRN
[2024-05-24] MEDS: IV FLUID CONTINUATION 1,000 ML IV ONE (08:00)
[2024-05-24] MEDS: ONDANSETRON 4 MG/2 ML VIAL IVP ONE (08:27)
[2024-05-24] MEDS: LACTATED RINGERS 1,000 ML IV SCH (08:27)
[2024-05-24] MEDS: MIDAZOLAM 2 MG/2 ML VIAL IV STA (08:31)
[2024-05-24] MEDS: GENTAMICIN 100 MG in SODIUM CHLORIDE 0.9% 100 ML IVPB PRN (09:21)
[2024-05-24] MEDS: GENTAMICIN 80 MG in SODIUM CHLORIDE 0.9% 500 ML 500 ML IRRIGATION ONE (09:30)
[2024-05-24] MEDS: VASOPRESSIN 20 UNIT/ML 1 ML VIAL IM ONE (09:31)
[2024-05-24] MEDS: AMPICILLIN 1,000 MG in SODIUM CHLORIDE 0.9% 50 ML IVPB PRN (09:34)
[2024-05-24] MEDS: BACITRACIN OINT 1 EACH PACKET TOPICAL ONE (09:51)
[2024-05-24] MEDS ORDERED: ALBUTEROL NEBULIZED 2.5 MG/3 ML INHALATION PRN (10:00)
[2024-05-24] MEDS ORDERED: ONDANSETRON 4 MG/2 ML VIAL IVP PRN (10:01)
--- NOTE | 2024-05-24 10:06 | P.OP ---
Date of Procedure: 05/24/24 Preoperative Diagnosis: type 2-3 stress urinary incontinence Postoperative Diagnosis: same Procedure(s) Performed: cystoscopy with placement of pubovaginal sling (Lynx) graft Anesthesia: JAYROA Surgeon: Donald Farley Estimated Blood Loss (ml): 200 Pathology: none sent Condition: stable Disposition: PACU Indications for Procedure: patient is 58. She has significant stress incontinence documented on history physical examination urodynamics. She comes for a pubovaginal sling with Lynx graft. The risks and complications including mesh controversy is been discussed at length with the patient. Description of Procedure: patient brought to the operating suite. Given a general anesthetic. Placed lithotomy position with a sterile prep and drape. De Paz catheters introduced sterilely. The labia are sewn laterally with 2-0 silk. A vaginal speculum was introduced into the vagina. Anterior vaginal mucosa is elevated off the submucosa with 10 mL of a mixture of 20 g of Pitressin and 200 mL of saline. A midline suburethral incision is made. I dissect lateral the bladder neck bilaterally. 2 incisions at the corner of the pubis are made. I passed the Lynx introducers retropubically into the vaginal space bilaterally. I removed the De Paz catheter performed cystoscopy to make sure there is no evidence of bladder injury and there is none. I attached the grafts to the ends of the introducers and pull back suprapubically. The graft lay at the bladder neck nicely. I closed the vaginal mucosa with running 2-0 Vicryl. The redundant sheathing has been removed. The excess graft at the skin level suprapubically is excised. The skin is closed with 4-0 Vicryl. A vaginal packings placed. The urine remains clear. The labia stitches are removed. The patient is awakened and returned recovery in good condition. Blood loss is approximately 200 mL.
[2024-05-24] MEDS: LACTATED RINGERS 1,000 ML IV ONE (10:10)
[2024-05-24] MEDS: HYDROmorphone 0.5 MG/0.5 ML SYRINGE IVP PRN (10:29)
[2024-05-24] MEDS: KETOROLAC 15 MG/ML 1 ML VIAL IVP PRN (10:29)
[2024-05-24] MEDS: DEXTROSE 5%-0.45% NACL 1,000 ML IV SCH (12:10)
[2024-05-24] MEDS: FAMOTIDINE 20 MG TAB PO SCH (20:51)
[2024-05-25 09:10] VITALS: BP 150/80; PULSE 78; RESP 18; TEMP 98
--- NOTE | 2024-05-25 13:10 | P.DS ---
Providers Attending physician: Donald Farlye Primary care physician: [facility] Hospital Course: This is a 58-year-old female with history of stress incontinence, underwent a pubovaginal sling by Dr. Farley on May 24. Patient was admitted to the hospital postoperatively. De Paz catheter and vaginal packing was removed on postop day #1, she was able to void with a low residual after catheter removal. She was discharged home on postop day #1, at time of discharge she was tolerating a diet, ambulating, pain was controlled Patient Condition at Discharge: Stable Plan - Discharge Summary Discharge Rx Participant: No New Discharge Prescriptions: New Ketorolac [Toradol] 10 mg PO Q6HR PRN #15 tab PRN Reason: Pain No Action Ibuprofen(Unknown Dose) 1 dose PO Q8H PRN PRN Reason: Pain Vit E(Unknown Dose) 1 dose PO QAM Centrum(Unknown Dose) 1 dose PO QAM Albuterol Sulfate [Proair Hfa] 1 - 2 puff INHALATION RT-QID PRN #1 each PRN Reason: Shortness Of Breath Famotidine [Pepcid] 40 mg PO BID Albuterol(Unknown Dose) 1 dose INHALATION QAM PRN PRN Reason: Shortness Of Breath Discharge Medication List Albuterol Sulfate [Proair Hfa] 1 - 2 puff INHALATION RT-QID PRN #1 each 10/09/21 [Rx] Albuterol(Unknown Dose) 1 dose INHALATION QAM PRN 05/22/24 [History] Centrum(Unknown Dose) 1 dose PO QAM 05/22/24 [History] Famotidine [Pepcid] 40 mg PO BID 05/22/24 [History] Ibuprofen(Unknown Dose) 1 dose PO Q8H PRN 05/22/24 [History] Vit E(Unknown Dose) 1 dose PO QAM 05/22/24 [History] Ketorolac [Toradol] 10 mg PO Q6HR PRN #15 tab 05/25/24 [Rx] Patient Instructions/Handouts: Bladder Sling for Women (DC) Activity/Diet/Wound Care/Special Instructions: It's normal to have vaginal bleeding after the procedure No heavy lifting or straining You may shower, no baths Discharge Disposition: HOME SELF-CARE
== END 2024-05-25 09:50 | disposition home or self-care (01) ==
LOC: OR 07:30 → 4FBP 10:25 → OR 05-25 09:50
PROVIDERS: ATTEND Urology
DX: N39.3 Stress incontinence (female) (male) (principal); J44.9 Chronic obstructive pulmonary disease, unspecified; G89.29 Other chronic pain; K21.9 Gastro-esophageal reflux disease without esophagitis; M19.90 Unspecified osteoarthritis, unspecified site; G40.909 Epilepsy, unspecified, not intractable, without status epilepticus; F17.200 Nicotine dependence, unspecified, uncomplicated; Z85.820 Personal history of malignant melanoma of skin; Z88.2 Allergy status to sulfonamides; Z88.8 Allergy status to other drugs, medicaments and biological substances; Z90.49 Acquired absence of other specified parts of digestive tract; Z90.710 Acquired absence of both cervix and uterus; Z79.51 Long term (current) use of inhaled steroids; Z79.899 Other long term (current) drug therapy
CPT/HCPCS: 57288; C1771; J2250; J1580 ×2; J2405; J0290; J1885 ×2; J1170

== ENCOUNTER → 2024-11-22 | Outpatient (CLI) | payer OTHER ==
[2024-11-22 13:31] LABS: Influenza A Not Detected (Not Detectd); Influenza B Not Detected (Not Detectd); RSV Not Detected (Not Detectd)
== END | disposition home or self-care (01) ==
LOC: LABWHC1 12:07
PROVIDERS: ATTEND Internal Medicine
DX: Z20.822 Contact with and (suspected) exposure to COVID-19 (principal); J06.9 Acute upper respiratory infection, unspecified
CPT/HCPCS: 87636

== ENCOUNTER 2025-03-13 09:37 | Inpatient (IN) | payer OTHER ==
--- NOTE | 2025-03-13 10:11 | ED ---
General Adult HPI - General Chief complaint: Recheck/Abnormal Lab/Rx Stated complaint: infection Time Seen by Provider: 03/13/25 09:48 Source: patient, RN notes reviewed Mode of arrival: ambulatory Limitations: no limitations - History of Present Illness Initial comments: Patient is a 59-year-old female presenting to the emergency department with right ear pain and swelling. Symptoms have been occurring for several months since ear piercing. Patient has swelling and discomfort. Patient has been on several courses of antibiotics without improvement. Patient has seen several specialist. Patient was sent over by the clinic with Dr. Cortez for IV a ntibiotics. - Related Data Home Medications Medication Instructions Recorded Confirmed Albuterol(Unknown Dose) 1 dose INHALATION QAM PRN 05/22/24 05/24/24 Centrum(Unknown Dose) 1 dose PO QAM 05/22/24 05/24/24 Famotidine [Pepcid] 40 mg PO BID 05/22/24 05/24/24 Ibuprofen(Unknown Dose) 1 dose PO Q8H PRN 05/22/24 05/24/24 Vit E(Unknown Dose) 1 dose PO QAM 05/22/24 05/24/24 Previous Rx's Medication Instructions Recorded Albuterol Sulfate [Proair Hfa] 1 - 2 puff INHALATION RT-QID PRN 10/09/21 #1 each Ketorolac [Toradol] 10 mg PO Q6HR PRN #15 tab 05/25/24 Allergies Allergy/AdvReac Type Severity Reaction Status Date / Time Sulfa (Sulfonamide Allergy Anaphylaxis Verified 03/13/25 09:47 Antibiotics) ciprofloxacin [From Cipro] AdvReac Anaphylaxis Verified 03/13/25 09:47 prednisone AdvReac Confusion/a Verified 03/13/25 09:47 ggressive steroids AdvReac Confusion/a Uncoded 03/13/25 09:47 ggressive Review of Systems ROS Statement: Those systems with pertinent positive or pertinent negative responses have been documented in the HPI. ROS Other: All systems not noted in ROS Statement are negative. Constitutional: Denies: fever Eyes: Denies: eye pain ENT: Reports: as per HPI, ear pain Respiratory: Denies: dyspnea Cardiovascular: Denies: chest pain 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, one functioning kidney History of Any Multi-Drug Resistant Organisms: None Reported Past Surgical History: Appendectomy, Hysterectomy Additional Past Surgical History / Comment(s): corn removal Past Anesthesia/Blood Transfusion Reactions: No Reported Reaction Past Psychological History: No Psychological Hx Reported Smoking Status: Current every day smoker Past Alcohol Use History: Occasional Past Drug Use History: Cocaine, Marijuana - Past Family History Mother Sister(s) Family Medical History: Cancer, CVA/TIA Additional Family Medical History / Comment(s): cervicle, breast Father Family Medical History: Cancer, Coronary Artery Disease (CAD) Additional Family Medical History / Comment(s): cancer of type. Brother(s) Family Medical History: Cancer Additional Family Medical History / Comment(s): Melenoma General Exam Limitations: no limitations General appearance: alert, in no apparent distress Head exam: Present: normocephalic Eye exam: Present: normal appearance ENT exam: Present: normal oropharynx, other (Right upper ear with swelling and tenderness, does not involve the ear canal.) Neck exam: Present: normal inspection Respiratory exam: Present: normal lung sounds bilaterally Cardiovascular Exam: Present: regular rate, normal rhythm GI/Abdominal exam: Present: soft. Absent: tenderness, guarding Extremities exam: Present: normal inspection Neurological exam: Present: alert, CN II-XII intact. Absent: motor sensory deficit Psychiatric exam: Present: normal affect, normal mood Skin exam: Present: normal color Course Vital Signs 03/13/25 03/13/25 09:44 09:46 Temperature 97.8 F Pulse Rate 96 68 Respiratory 20 16 Rate Blood Pressure 95/66 100/60 O2 Sat by Pulse 96 98 Oximetry Medical Decision Making - Medical Decision Making Was pt. sent in by a medical professional or institution (, PA, INVESTMENT SALES ASSISTANT, urgent care, hospital, or group home...) When possible be specific @ -Patient sent in by Dr. Cortez's office Did you speak to anyone other than the patient for history (EMS, parent, family, police, friend...)? What history was obtained from this source @ -I did speak to Dr. Odell who has concern for 2 infections including sternal Bactrim. He would like patient admitted with CT scan as well as cefepime and Flagyl Did you review nursing and triage notes (agree or disagree)? Why? @ -I reviewed and agree with nursing and triage notes Were old charts reviewed (outside hosp., previous admission, EMS record, old EKG, old radiological studies, urgent care reports/EKG's, group home records)? Report findings @ -No old charts were reviewed Differential Diagnosis (chest pain, altered mental status, abdominal pain women, abdominal pain men, vaginal bleeding, weakness, fever, dyspnea, syncope, headache, dizziness, GI bleed, back pain, seizure, CVA, palpatations, mental health, musculoskeletal)? @ -Differential Weakness: H differential Fever: Pneumonia, viral URI, endocarditis, myocarditis, pericarditis, otitis, sinusitis, peritonsillar Abscess, retropharyngeal Abscess, epiglottitis, peritonitis, appendicitis, Sherie cystitis, diverticulitis, hepatitis, colitis, UTI, PID, TOA, pyelonephritis, prostatitis, epididymitis, meningitis, encephalitis, pulmonary embolism, CVA, thyroid storm, pancreatitis, adrenal crisis, cavernous sinus thrombosis, this is not meant to be an all-inclusive list. EKG interpreted by me (3pts min.). @ -As above X-rays interpreted by me (1pt min.). @ -None done CT interpreted by me (1pt min.). @ -None done U/S interpreted by me (1pt. min.). @ -None done What testing was considered but not performed or refused? (CT, X-rays, U/S, labs)? Why? @ -CT external ear will be ordered What meds were considered but not given or refused? Why? @ -None Did you discuss the management of the patient with other professionals (jae crowe i.e. , PA, INVESTMENT SALES ASSISTANT, lab, RT, psych nurse, social studies teacher, top stop attacher, teacher, global chief experience officer, returned case inspector)? Give summary @ -Case also discussed with Dr. Gallego who will admit for Dr. Knox Was smoking cessation discussed for >3mins.? @ -No Was critical care preformed (if so, how long)? @ -No Were there social determinants of health that impacted care today? How? (Homelessness, low income, unemployed, alcoholism, drug addiction, transportation, low edu. Level, literacy, decrease access to med. care, halfway, rehab)? @ -No Was there de-escalation of care discussed even if they declined (Discuss DNR or withdrawal of care, Hospice)? DNR status @ -No What co-morbidities impacted this encounter? (DM, HTN, Smoking, COPD, CAD, Cancer, CVA, ARF, Chemo, Hep., AIDS, mental health diagnosis, sleep apnea, morbid obesity)? @ -None Was patient admitted / discharged? Hospital course, mention meds given and route, prescriptions, significant lab abnormalities, going to OR and other pertinent info. @ -Patient presents with several months of right ear pain and swelling concern for infection. Patient will be admitted for IV antibiotics. CT scan ordered. Patient updated. Admission orders written. Undiagnosed new problem with uncertain prognosis? @ -No Drug Therapy requiring intensive monitoring for toxicity (Heparin, Nitro, Insulin, Cardizem)? @ -No Were any procedures done? @ -No Diagnosis/symptom? @ -External ear infection Acute, or Chronic, or Acute on Chronic? @ -Acute Uncomplicated (without systemic symptoms) or Complicated (systemic symptoms)? @ -Complicated with failing multiple courses of antibiotics Side effects of treatment? @ -No Exacerbation, Progression, or Severe Exacerbation? @ -No Poses a threat to life or bodily function? How? (Chest pain, USA, MA, pneumonia, PE, COPD, DKA, ARF, appy, cholecystitis, CVA, Diverticulitis, Homicidal, Suicidal, threat to staff... and all critical care pts) @ -No - Lab Data Result diagrams: 03/13/25 10:07 03/13/25 10:07 Lab Results 03/13/25 03/13/25 03/13/25 Range/Units 10:07 10:07 10:07 WBC 7.24 (4.50-10.00) 10*3/uL RBC 4.89 (4.10-5.20) 10*6/uL Hgb 15.5 H (12.0-15.0) g/dL Hct 46.3 (37.2-46.3) % MCV 94.7 (80.0-97.0) fL MCH 31.7 (27.0-32.0) pg MCHC 33.5 (32.0-37.0) g/dL Plt Count 264 (140-440) 10*3/uL MPV 9.3 L (9.5-12.2) fL Immature Gran % (Auto) 0.8 % Neutrophils % 70.1 % Lymphocytes % 21.3 % Monocytes % 5.5 % Eosinophils % 1.9 % Basophils % 0.4 % Immature Gran # 0.06 H (0.00-0.04) 10*3/uL Neutrophils # 5.07 (1.80-7.70) 10*3/uL Lymphocytes # 1.54 (0.90-5.00) 10*3/uL Monocytes # 0.40 (0.20-1.00) 10*3/uL Eosinophils # 0.14 (0.04-0.35) 10*3/uL Basophils # 0.03 (0.00-0.10) 10*3/uL PT 10.8 (10.0-12.5) sec INR 1.0 (<1.2) APTT 30.0 (22.0-30.0) sec Sodium 138 (137-145) mmol/L Potassium 3.9 (3.5-5.1) mmol/L Chloride 107 (98-107) mmol/L Carbon Dioxide 25 (22-30) mmol/L Anion Gap 6 mmol/L BUN 13 (7-17) mg/dL Creatinine 0.81 (0.52-1.04) mg/dL Est GFR (CKD-EPI)AfAm >90 (>60 ml/min/1.73 sqM) Est GFR (CKD-EPI)NonAf 80 (>60 ml/min/1.73 sqM) Glucose 97 (74-99) mg/dL Plasma Lactic Acid Phoenix (0.7-2.0) mmol/L Calcium 10.6 H (8.4-10.2) mg/dL Total Bilirubin 0.6 (0.2-1.3) mg/dL AST 19 (14-36) U/L ALT 14 (4-34) U/L Alkaline Phosphatase 115 (38-126) U/L Total Protein 6.4 (6.3-8.2) g/dL Albumin 4.0 (3.5-5.0) g/dL 03/13/25 Range/Units 10:07 WBC (4.50-10.00) 10*3/uL RBC (4.10-5.20) 10*6/uL Hgb (12.0-15.0) g/dL Hct (37.2-46.3) % MCV (80.0-97.0) fL MCH (27.0-32.0) pg MCHC (32.0-37.0) g/dL Plt Count (140-440) 10*3/uL MPV (9.5-12.2) fL Immature Gran % (Auto) % Neutrophils % % Lymphocytes % % Monocytes % % Eosinophils % % Basophils % % Immature Gran # (0.00-0.04) 10*3/uL Neutrophils # (1.80-7.70) 10*3/uL Lymphocytes # (0.90-5.00) 10*3/uL Monocytes # (0.20-1.00) 10*3/uL Eosinophils # (0.04-0.35) 10*3/uL Basophils # (0.00-0.10) 10*3/uL PT (10.0-12.5) sec INR (<1.2) APTT (22.0-30.0) sec Sodium (137-145) mmol/L Potassium (3.5-5.1) mmol/L Chloride (98-107) mmol/L Carbon Dioxide (22-30) mmol/L Anion Gap mmol/L BUN (7-17) mg/dL Creatinine (0.52-1.04) mg/dL Est GFR (CKD-EPI)AfAm (>60 ml/min/1.73 sqM) Est GFR (CKD-EPI)NonAf (>60 ml/min/1.73 sqM) Glucose (74-99) mg/dL Plasma Lactic Acid Phoenix 1.3 (0.7-2.0) mmol/L Calcium (8.4-10.2) mg/dL Total Bilirubin (0.2-1.3) mg/dL AST (14-36) U/L ALT (4-34) U/L Alkaline Phosphatase (38-126) U/L Total Protein (6.3-8.2) g/dL Albumin (3.5-5.0) g/dL Disposition Clinical Impression: Infection of external ear Disposition: ADMITTED IP TO THIS HOSP Is patient prescribed a controlled substance at d/c from ED?: No Referrals: Inna Crespo MD [Primary Care Provider] - 1-2 days Time of Disposition: 11:57
[2025-03-13 10:36] LABS: Basophils # (A) 0.03 10*3/uL (0.00-0.10); Basophils % (A) 0.4 %; Eosinophils # (A) 0.14 10*3/uL (0.04-0.35); Eosinophils % (A) 1.9 %; HCT 46.3 % (37.2-46.3); HGB 15.5 g/dL (12.0-15.0); Lymphocytes # (A) 1.54 10*3/uL (0.90-5.00); Lymphocytes % (A) 21.3 %; MCH 31.7 pg (27.0-32.0); MCHC 33.5 g/dL (32.0-37.0); MCV 94.7 fL (80.0-97.0); Mean Platelet Volume 9.3 fL (9.5-12.2); Monocytes % (A) 5.5 %; Neutrophils # (A) 5.07 10*3/uL (1.80-7.70); Neutrophils % (A) 70.1 %; Platelet Count 264 10*3/uL (140-440); RBC 4.89 10*6/uL (4.10-5.20); RDW 12.2 % (11.5-14.5); WBC 7.24 10*3/uL (4.50-10.00)
[2025-03-13 10:45] LABS: Prothrombin Time 10.8 sec (10.0-12.5)
[2025-03-13 10:47] LABS: ALT 14 U/L (4-34); AST 19 U/L (14-36); African American GFR (CKD) >90 (>60 ml/min/1.73 sqM); Alkaline Phosphatase 115 U/L (38-126); Anion Gap 6 mmol/L; Blood Urea Nitrogen 13 mg/dL (7-17); Calcium 10.6 mg/dL (8.4-10.2); Carbon Dioxide 25 mmol/L (22-30); Chloride 107 mmol/L (98-107); Glucose 97 mg/dL (74-99); Non-African American GFR(CKD) 80 (>60 ml/min/1.73 sqM); Potassium 3.9 mmol/L (3.5-5.1); Sodium 138 mmol/L (137-145); Total Bilirubin 0.6 mg/dL (0.2-1.3); Total Protein 6.4 g/dL (6.3-8.2)
[2025-03-13] MEDS ORDERED: NALOXONE 0.4 MG/ML 1 ML VIAL IV PRN (11:59)
[2025-03-13] MEDS ORDERED: HYDROcodone/APAP 5-325MG 1 EACH TAB PO PRN (11:59)
[2025-03-13] MEDS ORDERED: traMADol 50 MG TAB PO PRN (11:59)
[2025-03-13] MEDS ORDERED: CEFEPIME 1 GM in SODIUM CHLORIDE 0.9% 50 ML IVPB STA (12:01)
[2025-03-13] MEDS: SODIUM CHLORIDE 0.9% 1,000 ML IV SCH (12:46)
[2025-03-13] MEDS: metroNIDAZOLE-NS PMX 500 MG in SALINE 1 100ML.BAG IVPB SCH (12:49)
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
[2025-03-13] MEDS: CEFEPIME 2 GM in SODIUM CHLORIDE 0.9% 100 ML IVPB SCH (15:10)
[2025-03-13] MEDS ORDERED: ALBUTEROL HFA INHALER INHALATION PRN (16:30)
[2025-03-13] MEDS ORDERED: ALBUTEROL NEBULIZED 2.5 MG/3 ML INHALATION PRN (16:41)
[2025-03-13 17:23] LABS: C Reactive Protein <0.5 mg/dL (<1.0)
[2025-03-13] MEDS: PANTOPRAZOLE 40 MG TABLET PO SCH (17:36)
[2025-03-13] MEDS: HYDROmorphone 0.5 MG/0.5 ML SYRINGE IVP PRN (19:26)
[2025-03-13] MEDS: IPRATROPIUM-ALBUTEROL 3 ML NEB INHALATION PRN (20:36)
[2025-03-13] MEDS ORDERED: CEFEPIME 1 GM in SODIUM CHLORIDE 0.9% 50 ML IVPB SCH (21:00)
--- NOTE | 2025-03-13 22:28 | P.CONS ---
History of Present Illness - Reason for Consult Consult date: 03/13/25 Ear infection Requesting physician: Cristino Ramos - Chief Complaint Right ear pain swelling and drainage x months - History of Present Illness Patient is a 59-year-old female with a past medical history significant for osteoarthritis pneumonia chronic back pain seizure disorder melanoma patient apparently did have a right ear piercing done subsequently the patient has developed infection the patient did remove the piercing out and has been treated with multiple courses of antibiotic I evaluated the patient for the first time in the office about 2 weeks ago at that time culture done by her primary care physician was positive for Finegoldia magna I was able to obtain further culture in the office and the patient was treated with oral Augmentin subsequently culture came back with Finegoldia magna as well as Acinetobacter that was intermediate to Unasyn hence we did add oral Cipro patient came back to the office yesterday for follow-up and mention she was unable to tolerate the oral Cipro patient currently complaining of pain to the right external ear d escribing it to be sharp moderate to severe intensity with associated swelling redness and drainage and some chills for the patient was advised to go to the hospital as the patient likely need further imaging studies as well as IV antibiotic as the patient was not able to tolerate oral Cipro on presentation to the hospital the patient was afebrile patient was mildly tachycardic but not hypotensive or hypoxic she did have a white count of 7.24 creatinine 0.81 electrolyte has been normal liver enzymes are normal cultures have been obtained patient also have a CT which is currently pending she was empirically started on cefepime and Flagyl as per discussion with ER physician infectious disease was consulted for further management of antibiotic therapy Review of Systems Positive point and negatives has been mentioned in the HPI, complete review of systems was performed and all other systems are negative 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, one functioning kidney History of Any Multi-Drug Resistant Organisms: None Reported Past Surgical History: Appendectomy, Hysterectomy Additional Past Surgical History / Comment(s): corn removal Past Anesthesia/Blood Transfusion Reactions: No Reported Reaction Past Psychological History: No Psychological Hx Reported Smoking Status: Current every day smoker Past Alcohol Use History: Occasional Past Drug Use History: Cocaine, Marijuana - Past Family History Mother Sister(s) Family Medical History: Cancer, CVA/TIA Additional Family Medical History / Comment(s): cervicle, breast Father Family Medical History: Cancer, Coronary Artery Disease (CAD) Additional Family Medical History / Comment(s): cancer of type. Brother(s) Family Medical History: Cancer Additional Family Medical History / Comment(s): Melenoma Medications and Allergies Home Medications Medication Instructions Recorded Confirmed Type Albuterol Sulfate [Ventolin HFA] 2 puff INHALATION RT-QID PRN 03/13/25 03/13/25 History Aspirin 81 mg PO DAILY 03/13/25 03/13/25 History Fluticasone/Umeclidin/Vilanter 1 puff INHALATION RT-DAILY 03/13/25 03/13/25 History [Trelegy Ellipta 100-62.5-25] Ipratropium-Albuterol Nebulize 3 ml INHALATION RT-QID PRN 03/13/25 03/13/25 History [Duoneb 0.5 mg-3 mg/3 ml Soln] Lidocaine 4% Patch 1 patch TRANSDERM DAILY PRN 03/13/25 03/13/25 History Mupirocin 2% Oint [Bactroban 2% 1 applic TOPICAL BID 03/13/25 03/13/25 History Oint] Omeprazole 20 mg PO BID 03/13/25 03/13/25 History QUEtiapine [SEROquel] 50 mg PO HS PRN 03/13/25 03/13/25 History Allergies Allergy/AdvReac Type Severity Reaction Status Date / Time ciprofloxacin [From Cipro] Allergy Anaphylaxis Verified 03/13/25 12:15 /Itch/Nause a/Vomiting Sulfa (Sulfonamide Allergy Anaphylaxis Verified 03/13/25 12:15 Antibiotics) prednisone AdvReac Confusion/a Verified 03/13/25 12:15 ggressive steroids AdvReac Confusion/a Uncoded 03/13/25 12:15 ggressive Physical Exam Vitals: Vital Signs Temp Pulse Resp BP Pulse Ox 03/13/25 11:53 77 20 108/73 94 L 03/13/25 11:46 67 16 108/73 95 03/13/25 09:46 68 16 100/60 98 03/13/25 09:44 97.8 F 96 20 95/66 96 Intake and Output 03/12/25 03/13/25 03/13/25 22:59 06:59 14:59 Other: Weight 74.843 kg GENERAL DESCRIPTION: Middle-age female lying in bed, no distress. No tachypnea or accessory muscle of respiration use. HEENT: Shows Pallor , no scleral icterus. Oral mucous membrane is dry. Right external ear/pinna did have swelling warmth and tenderness NECK: Trachea central, no thyromegaly. LUNGS: Unlabored breathing. Clear to auscultation anteriorly. No wheeze or crackle. HEART: S1, S2, regular rate and rhythm. No loud murmur ABDOMEN: Soft, no tenderness , guarding or rigidity, no organomegaly EXTREMITIES: No edema of feet. SKIN: No rash, no masses palpable. NEUROLOGICAL: The patient is awake, alert, oriented x3, mood and affect normal. Results CBC & Chem 7: 03/13/25 10:07 03/13/25 10:07 Labs: Abnormal Lab Results - Last 24 Hours (Table) 03/13/25 03/13/25 Range/Units 10:07 10:07 Hgb 15.5 H (12.0-15.0) g/dL MPV 9.3 L (9.5-12.2) fL Immature Gran # 0.06 H (0.00-0.04) 10*3/uL Calcium 10.6 H (8.4-10.2) mg/dL Assessment and Plan (1) Otitis externa Current Visit: Yes Status: Acute Code(s): H60.90 - UNSPECIFIED OTITIS EXTERNA, UNSPECIFIED EAR SNOMED Code(s): 2177740 (2) Allergy to multiple antibiotics Current Visit: Yes Status: Acute Code(s): Z88.1 - ALLERGY STATUS TO OTHER ANTIBIOTIC AGENTS SNOMED Code(s): 370186302 (3) Failure of outpatient treatment Current Visit: Yes Status: Acute Code(s): Z78.9 - OTHER SPECIFIED HEALTH STATUS SNOMED Code(s): 475764434 Plan: 1patient presenting to the hospital for right ear pain swelling and redness as well as drainage that has been going on for the last few months started with piercing of the right ear with subsequent removal of the earrings however did have problem with persistent drainage with a recent culture persistently positive for Finegoldia magna and also grew Acinetobacter for the patient did not respond well to the Augmentin as well as oral Cipro therapy 2-we will wait for the CT of the external ear to make sure no evidence of any foreign body that may be responsible for persistent/recurrent infection 3we will empirically treat the patient with the cefepime and Flagyl pending finalization of the repeat culture 4patient may need midline and outpatient IV antibiotic therapy on discharge Multiple question concern answered We will follow on clinical condition and cultures to further adjust medication if needed Thank you for this consultation we will follow the patient along with you Dictation was produced using [employer] dictation software. please excuse any grammatical, word or spelling errors. Time with Patient: Greater than 30
--- NOTE | 2025-03-14 01:55 | HP ---
HISTORY AND PHYSICAL CHIEF COMPLAINT: Right ear pain and swelling and renal failure. HISTORY OF PRESENT ILLNESS: This is a 59-year-old woman with a past medical history of multiple medical problems including DJD, history of pneumonia, seizure disorder, underwent ear piercing of the cartilage on the upper part of the right ear. Subsequently, the patient had significant pain and swelling. The patient is on multiple antibiotics with lack of improvement. The patient [facility] for [facility] evaluation and treatment. White count is normal. Otherwise, calcium is 10.6. There is no history of fever, rigors, or chills at this time. PAST MEDICAL HISTORY: History of seizure disorder, history of DJD, history of pneumonia, history of polysubstance abuse. The rest of history and chart is also reviewed. HOME MEDICATIONS: Reviewed, include DuoNeb. Doses and rest of medications reviewed. ALLERGIES: Cipro. FAMILY HISTORY: History of CVA, TIA, cancer in the past. SOCIAL HISTORY: History of polysubstance abuse. REVIEW OF SYSTEMS: A 14-point review of systems is negative except as mentioned in history of present illness. PHYSICAL EXAMINATION: VITAL SIGNS: Pulse 72, blood pressure 113/80, and respirations 18. HEENT: Conjunctivae normal. Examination of the right ear, some erythema present and tenderness, and left ear, some erythema also present. NECK: No jugular venous distention. CARDIOVASCULAR: S1, S2. ABDOMEN: Soft, nontender. LEGS: No edema. NERVOUS SYSTEM: No focal deficit. LABORATORY DATA: Reviewed. ASSESSMENT: 1. Right earlobe infection with failure of outpatient treatment. 2. Rule out relapsing polychondritis. 3. Elevated WBC. 4. Polysubstance abuse history. 5. History of DJD. 6. History of pneumonia. 7. History of seizure disorder. 8. History of melanoma of back. 9. History of THC. RECOMMENDATIONS AND DISCUSSION: This 59-year-old woman, presented with multiple complex medical issues. We will monitor the patient closely. I would recommend to continue the current medications, symptomatic treatment, empiric antibiotics has been given. Follow the cultures. I would recommend also autoimmune workup, also of the face CT was done, which showed no suspicious finding at this time. Overall prognosis guarded. Further recommendations to follow. MMODL / IJN: [id number] / [facility]ITALOswald
[2025-03-14 02:38] LABS: Rheumatoid Factor, Qnt <15 IU/mL (0-15)
[2025-03-14] MEDS: QUEtiapine 50 MG TAB PO PRN (02:59)
[2025-03-14] MEDS: oxyCODONE-APAP 5-325MG 1 EACH TAB PO PRN (02:59)
[2025-03-14] MEDS: SYMBICORT 160-4.5 MCG INHALER INHALATION SCH (04:34)
[2025-03-14 05:31] LABS: HIV 2 AB Non-Reactive (Non-Reactive); HIV AB P24 Non-Reactive (Non-Reactive); HIV P24 AG Non-Reactive (Non-Reactive)
[2025-03-14 07:02] LABS: Basophils # (A) 0.03 10*3/uL (0.00-0.10); Basophils % (A) 0.5 %; Eosinophils # (A) 0.17 10*3/uL (0.04-0.35); Eosinophils % (A) 2.7 %; HCT 44.4 % (37.2-46.3); HGB 14.7 g/dL (12.0-15.0); Lymphocytes % (A) 34.5 %; MCHC 33.1 g/dL (32.0-37.0); MCV 96.5 fL (80.0-97.0); Mean Platelet Volume 9.4 fL (9.5-12.2); Monocytes % (A) 6.3 %; Neutrophils # (A) 3.52 10*3/uL (1.80-7.70); Neutrophils % (A) 55.1 %; Platelet Count 239 10*3/uL (140-440); RDW 12.3 % (11.5-14.5); WBC 6.38 10*3/uL (4.50-10.00)
[2025-03-14 07:19] LABS: African American GFR (CKD) >90 (>60 ml/min/1.73 sqM); Anion Gap 5 mmol/L; Blood Urea Nitrogen 13 mg/dL (7-17); Carbon Dioxide 25 mmol/L (22-30); Chloride 109 mmol/L (98-107); Glucose 112 mg/dL (74-99); Non-African American GFR(CKD) 78 (>60 ml/min/1.73 sqM); Potassium 3.8 mmol/L (3.5-5.1); Sodium 139 mmol/L (137-145)
[2025-03-14] MEDS: ASPIRIN 81 MG PO SCH (09:27)
[2025-03-14] MEDS: TIOTROPIUM 2.5 MCG INHALER INHALATION SCH (10:08)
[2025-03-14 14:03] LABS: C-ANCA <1:20 Titer (<1:20)
[2025-03-15 05:05] LABS: Appearance,Urine Clear (Clear); Bilirubin,Urine Negative (Negative); Blood,Urine Negative (Negative); Color,Urine Light Yellow; Glucose,Urine (UA) Negative (Negative); Ketones,Urine Negative (Negative); Leukocyte Esterase,Urine Negative (Negative); Nitrite,Urine Negative (Negative); Protein,Urine Negative (Negative); Specific Gravity,Urine 1.019 (1.001-1.035); Urobilinogen,Urine <2.0 mg/dL (<2.0)
--- NOTE | 2025-03-15 05:06 | PN ---
PROGRESS NOTE DATE OF SERVICE: 03/14/2025 HISTORY OF PRESENT ILLNESS: This is a 59-year-old woman who was admitted with the right ear pain, infection after a piercing, is being closely monitored at this time. The patient is on empiric antibiotics. A CT scan noted. The patient's autoimmune workup is turned out to be negative so far. Dr. Odell is following the patient closely, planning outpatient PICC line and outpatient IV antibiotics. PAST MEDICAL HISTORY: Reviewed. REVIEW OF SYSTEMS: A 14-point review of systems is negative except as mentioned earlier. CURRENT MEDICATIONS: Reviewed. PHYSICAL EXAMINATION: VITAL SIGNS: Pulse is 90, blood pressure 115/70, respirations 17. CHEST: Clear to auscultation. CARDIOVASCULAR: S1 and S2. ABDOMEN: Soft. HEENT: Right pinna tender, erythematous. No abscess. LABORATORY DATA: Reviewed. ASSESSMENT: 1. Right earlobe infection with cartilage infection possibly with failure of outpatient treatment. 2. Relapsing polychondritis, unlikely. 3. Increased WBC. 4. Polysubstance abuse history. 5. History of degenerative joint disease. 6. History of pneumonia. 7. History of seizure disorder. 8. History of melanoma of the back. 9. History of THC. RECOMMENDATIONS: Recommend to continue current management and continue symptomatic treatment. Otherwise, we will discontinue the IV antibiotics. Repeat labs will be ordered. Pain management. Closely follow with Dr. Odell. Prognosis is guarded. The patient had failure of outpatient treatment. PICC line or a midline and outpatient IV antibiotics. MMODL / IJN: [id number] /
[2025-03-15 05:15] LABS: Amphetamine Screen,Urine Not Detected (NotDetected); Barbiturate Screen,Urine Not Detected (NotDetected); Benzodiazepines Screen,Urine Not Detected (NotDetected); Cocaine Screen,Urine Detected (NotDetected); Methadone Screen, Urine Not Detected (NotDetected); Opiate Screen,Urine Detected (NotDetected); Oxycodone Screen, Urine Not Detected (NotDetected); Phencyclidine Screen,Urine Not Detected (NotDetected); Tricyclic Antidepressant,Urine Not Detected (NotDetected); Urn Cannabinoid Scrn Not Detected (NotDetected)
--- NOTE | 2025-03-15 07:12 | P.PN ---
Subjective Progress Note Date: 03/14/25 Principal diagnosis: Reason for follow-up is right otitis externa Patient is a 59-year-old female with a past medical history significant for osteoarthritis pneumonia chronic back pain seizure disorder melanoma patient apparently did have a right ear piercing done subsequently the patient has been dealing with otitis externa treated with multiple courses of antibiotic with the last culture positive for Finegoldia magna and Acinetobacter failing outpatient oral Cipro. On today's evaluation that is 03/14/2025, patient has been afebrile, patient is breathing comfortably and is currently on room air, patient denies having any chest pain and cough, patient denies nausea vomiting or diarrhea and no abdominal pain, patient mention pain to the right is slightly decreased. Patient white count is 6.38 creatinine 0.82 cultures currently pending Objective - Vital Signs Vital signs: Vital Signs Temp 98.4 F 03/14/25 07:00 Pulse 80 03/14/25 07:00 Resp 17 03/14/25 07:00 BP 115/76 03/14/25 07:00 Pulse Ox 94 L 03/14/25 07:00 FiO2 Intake & Output 03/13/25 03/14/25 03/14/25 18:59 06:59 18:59 Intake Total 130 Balance 130 Weight 74.843 kg Intake: Oral 130 Other: Voiding Method Toilet # Voids 0 - Exam GENERAL DESCRIPTION: An elderly male lying in bed in no distress HEENT: Right ear swelling redness slight decrease no drainage RESPIRATORY SYSTEM: Unlabored breathing , decreased breath sounds at bases HEART: S1 S2 regular rate and rhythm , ABDOMEN: Soft , no tenderness EXTREMITIES: No edema feet - Labs CBC & Chem 7: 03/14/25 06:44 03/14/25 06:44 Labs: Abnormal Lab Results - Last 24 Hours (Table) 03/14/25 03/14/25 Range/Units 06:44 06:44 MPV 9.4 L (9.5-12.2) fL Immature Gran # 0.06 H (0.00-0.04) 10*3/uL Chloride 109 H (98-107) mmol/L Glucose 112 H (74-99) mg/dL Microbiology - Last 24 Hours (Table) 03/13/25 10:08 Gram Stain - Preliminary Ear - Right Wound Culture - Preliminary Assessment and Plan (1) Otitis externa Current Visit: Yes Status: Acute Code(s): H60.90 - UNSPECIFIED OTITIS EXTERNA, UNSPECIFIED EAR SNOMED Code(s): 4598788 (2) Allergy to multiple antibiotics Current Visit: Yes Status: Acute Code(s): Z88.1 - ALLERGY STATUS TO OTHER ANTIBIOTIC AGENTS SNOMED Code(s): 767746893 (3) Failure of outpatient treatment Current Visit: Yes Status: Acute Code(s): Z78.9 - OTHER SPECIFIED HEALTH STATUS SNOMED Code(s): 916971008 Plan: 1patient presenting to the hospital for right ear pain swelling and redness as well as drainage that has been going on for the last few months started with piercing of the right ear with subsequent removal of the earrings however did have problem with persistent drainage with a recent culture persistently positive for Finegoldia magna and also grew Acinetobacter for the patient did no t respond well to the Augmentin as well as oral Cipro therapy 2-patient did have CT of the external ear with no evidence of any foreign body or abscess 3patient mentions some improvement with cefepime and Flagyl to continue pending finalization of the repeat culture 4patient will likely need midline and outpatient IV antibiotic therapy on discharge, case planner to arrange for outpatient IV cefepime Multiple question concern answered Dictation was produced using [employer] dictation software. please excuse any grammatical, word or spelling errors. Time with Patient: Less than 30
[2025-03-15 07:46] LABS: Basophils # (A) 0.03 10*3/uL (0.00-0.10); Basophils % (A) 0.4 %; Eosinophils # (A) 0.22 10*3/uL (0.04-0.35); Eosinophils % (A) 3.1 %; HCT 45.4 % (37.2-46.3); Lymphocytes # (A) 2.08 10*3/uL (0.90-5.00); Lymphocytes % (A) 29.3 %; MCH 31.9 pg (27.0-32.0); MCV 96.6 fL (80.0-97.0); Mean Platelet Volume 9.5 fL (9.5-12.2); Monocytes # (A) 0.43 10*3/uL (0.20-1.00); Monocytes % (A) 6.1 %; Neutrophils # (A) 4.27 10*3/uL (1.80-7.70); Neutrophils % (A) 60.1 %; Platelet Count 237 10*3/uL (140-440); RDW 12.1 % (11.5-14.5)
[2025-03-15 08:02] LABS: African American GFR (CKD) 81 (>60 ml/min/1.73 sqM); Anion Gap 6 mmol/L; Blood Urea Nitrogen 14 mg/dL (7-17); Calcium 10.3 mg/dL (8.4-10.2); Carbon Dioxide 26 mmol/L (22-30); Chloride 107 mmol/L (98-107); Glucose 90 mg/dL (74-99); Non-African American GFR(CKD) 70 (>60 ml/min/1.73 sqM); Potassium 4.2 mmol/L (3.5-5.1); Sodium 139 mmol/L (137-145)
[2025-03-15 08:54] VITALS: BP 121/75; PULSE 80; RESP 16; TEMP 98
--- NOTE | 2025-03-15 16:30 | P.PN ---
Subjective Progress Note Date: 03/15/25 Principal diagnosis: Reason for follow-up is right otitis externa Patient is a 59-year-old female with a past medical history significant for osteoarthritis pneumonia chronic back pain seizure disorder melanoma patient apparently did have a right ear piercing done subsequently the patient has been dealing with otitis externa treated with multiple courses of antibiotic with the last culture positive for Finegoldia magna and Acinetobacter failing outpatient oral Cipro. On today's evaluation that is 03/15/2025, Patient is afebrile this morning patient denies having any chest pain shortness of breath or cough, the patient is currently on room air, patient denies any abdominal pain no diarrhea no nausea no vomiting overall pain and swelling to the right ear has decreased no drainage. Patient is feeling better wants to go home. Patient white count 7.10 creatinine 0.90 blood pressure has been negative Objective - Vital Signs Vital signs: Vital Signs Temp 98 F 03/15/25 08:20 Pulse 80 03/15/25 08:20 Resp 16 03/15/25 08:20 BP 121/75 03/15/25 08:20 Pulse Ox 98 03/15/25 08:20 FiO2 Intake & Output 03/14/25 03/15/25 03/15/25 18:59 06:59 18:59 Intake Total 130 Output Total 400 1 Balance 130 -400 -1 Intake: Oral 130 Output: Urine 400 1 Other: Voiding Method Toilet Toilet # Voids 0 1 # Bowel Movements 1 - Exam GENERAL DESCRIPTION: An elderly male lying in bed in no distress HEENT: Right ear swelling redness has decreased in intensity no drainage RESPIRATORY SYSTEM: Unlabored breathing , decreased breath sounds at bases HEART: S1 S2 regular rate and rhythm , ABDOMEN: Soft , no tenderness EXTREMITIES: No edema feet - Labs CBC & Chem 7: 03/15/25 07:10 03/15/25 07:10 Labs: Abnormal Lab Results - Last 24 Hours (Table) 03/15/25 03/15/25 03/15/25 Range/Units 03:00 07:10 07:10 Immature Gran # 0.07 H (0.00-0.04) 10*3/uL Calcium 10.3 H (8.4-10.2) mg/dL Urine Opiates Screen Detected H (NotDetected) Urine Cocaine Screen Detected H (NotDetected) Microbiology - Last 24 Hours (Table) 03/13/25 10:08 Gram Stain - Final Ear - Right Wound Culture - Final 03/13/25 10:07 Blood Culture - Preliminary Blood Assessment and Plan (1) Otitis externa Status: Acute Code(s): H60.90 - UNSPECIFIED OTITIS EXTERNA, UNSPECIFIED EAR SNOMED Code(s): 1861829 (2) Allergy to multiple antibiotics Status: Acute Code(s): Z88.1 - ALLERGY STATUS TO OTHER ANTIBIOTIC AGENTS SNOMED Code(s): 461150948 (3) Failure of outpatient treatment Status: Acute Code(s): Z78.9 - OTHER SPECIFIED HEALTH STATUS SNOMED Code(s): 147717510 Plan: 1patient presenting to the hospital for right ear pain swelling and redness as well as drainage that has been going on for the last few months started with piercing of the right ear with subsequent removal of the earrings however did have problem with persistent drainage with a recent culture persistently positive for Finegoldia magna and also grew Acinetobacter for the patient did not respond well to the Augmentin as well as oral Cipro therapy 2-patient did have CT of the external ear with no evidence of any foreign body or abscess 3patient mentions some improvement with cefepime and Flagyl, the patient did have midline placed this morning recommended to the course of IV cefepime and oral Flagyl and close outpatient follow-up, discussed with [facility] for admitting team Dictation was produced using [employer] dictation software. please excuse any grammatical, word or spelling errors. Time with Patient: Less than 30
== END 2025-03-15 13:58 | disposition home health service (06) | DRG 115 ==
LOC: EC 09:37 → 1SOBS 12:00 → OBSVTOIN 12:01 → 1SOBS 15:42
PROVIDERS: ADMIT Internal Medicine; ATTEND Internal Medicine
PROC: 05HD33Z Insertion of Infusion Device into Right Cephalic Vein, Percutaneous Approach (ICD-10-PCS; principal; 2025-03-15 07:30)
DX: H60.391 Other infective otitis externa, right ear (principal); F17.200 Nicotine dependence, unspecified, uncomplicated; G40.909 Epilepsy, unspecified, not intractable, without status epilepticus; M19.90 Unspecified osteoarthritis, unspecified site; W45.8XXS Other foreign body or object entering through skin, sequela; W26.8XXS Contact with other sharp object(s), not elsewhere classified, sequela; Z79.82 Long term (current) use of aspirin; Z85.820 Personal history of malignant melanoma of skin; Z87.01 Personal history of pneumonia (recurrent); Z88.1 Allergy status to other antibiotic agents; G89.29 Other chronic pain; M54.9 Dorsalgia, unspecified; Z79.899 Other long term (current) drug therapy; Z88.2 Allergy status to sulfonamides; Z88.8 Allergy status to other drugs, medicaments and biological substances; Z28.310 Unvaccinated for COVID-19; Z28.21 Immunization not carried out because of patient refusal
CPT/HCPCS: 36415; 70486; 80048; 80053; 80306; 81003; 83605; 85025; 85610; 85652; 85730; 86038; 86140; 86255; 86431; 86780; 87040; 87070; 87205; 87390; 94640; 96365; 96367; 99285

== ENCOUNTER 2025-04-11 14:20 | Emergency (ER) | payer OTHER ==
[2025-04-11 14:24] VITALS: BP 152/108; PULSE 98; RESP 17; TEMP 98.1
--- NOTE | 2025-04-11 16:04 | ED ---
Recheck HPI - General Chief Complaint: Recheck/Abnormal Lab/Rx Stated Complaint: R arm swelling Time Seen by Provider: 04/11/25 15:30 Source: patient, RN notes reviewed Mode of arrival: ambulatory Limitations: no limitations - History of Present Illness Initial Comments: 59-year-old female presenting requesting dressing change for right upper extremity ports. States she has been receiving IV antibiotics over the past 6 months for right ear infection. States she was taking a shower today and the bandage came off. No other complaints at this time. Denies fevers, redness, or drainage of the port. - Related Data Home Medications Medication Instructions Recorded Confirmed Albuterol Sulfate [Ventolin HFA] 2 puff INHALATION RT-QID PRN 03/13/25 03/13/25 Aspirin 81 mg PO DAILY 03/13/25 03/13/25 Fluticasone/Umeclidin/Vilanter 1 puff INHALATION RT-DAILY 03/13/25 03/13/25 [Trelegy Ellipta 100-62.5-25] Ipratropium-Albuterol Nebulize 3 ml INHALATION RT-QID PRN 03/13/25 03/13/25 [Duoneb 0.5 mg-3 mg/3 ml Soln] Lidocaine 4% Patch 1 patch TRANSDERM DAILY PRN 03/13/25 03/13/25 Mupirocin 2% Oint [Bactroban 2% 1 applic TOPICAL BID 03/13/25 03/13/25 Oint] Omeprazole 20 mg PO BID 03/13/25 03/13/25 QUEtiapine [SEROquel] 50 mg PO HS PRN 03/13/25 03/13/25 Previous Rx's Medication Instructions Recorded Cefepime [Maxipime] 2 gm IVPB Q8H #42 each 03/15/25 Pantoprazole [Protonix] 40 mg PO AC-BRKFST 14 Days #14 tab 03/15/25 metroNIDAZOLE [Flagyl] 500 mg PO TID #42 tab 03/15/25 Allergies Allergy/AdvReac Type Severity Reaction Status Date / Time ciprofloxacin [From Cipro] Allergy Anaphylaxis Verified 04/11/25 14:24 /Itch/Nause a/Vomiting Sulfa (Sulfonamide Allergy Anaphylaxis Verified 04/11/25 14:24 Antibiotics) prednisone AdvReac Confusion/a Verified 04/11/25 14:24 ggressive steroids AdvReac Confusion/a Uncoded 04/11/25 14:24 ggressive Review of Systems ROS Statement: Those systems with pertinent positive or pertinent negative responses have been documented in the HPI. ROS Other: All systems not noted in ROS Statement are negative. 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, one functioning kidney History of Any Multi-Drug Resistant Organisms: None Reported Past Surgical History: Appendectomy, Hysterectomy Additional Past Surgical History / Comment(s): corn removal Past Anesthesia/Blood Transfusion Reactions: No Reported Reaction Past Psychological History: No Psychological Hx Reported Smoking Status: Current every day smoker Past Alcohol Use History: Occasional Past Drug Use History: Cocaine, Marijuana - Past Family History Mother Sister(s) Family Medical History: Cancer, CVA/TIA Additional Family Medical History / Comment(s): cervicle, breast Father Family Medical History: Cancer, Coronary Artery Disease (CAD) Additional Family Medical History / Comment(s): cancer of type. Brother(s) Family Medical History: Cancer Additional Family Medical History / Comment(s): Melenoma General Exam Limitations: no limitations General appearance: alert, in no apparent distress Head exam: Present: atraumatic, normocephalic, normal inspection Eye exam: Present: normal appearance, PERRL, EOMI. Absent: scleral icterus, conjunctival injection, periorbital swelling ENT exam: Present: normal exam, mucous membranes moist Right Shoulder Exam: Present: normal inspection, full ROM. Absent: tenderness, swelling Upper Arm exam: Present: normal inspection (Port present to right upper extremity, no erythema or drainage), full ROM. Absent: tenderness, swelling Elbow exam: Present: normal inspection, full ROM. Absent: tenderness, swelling Vascular: Present: normal capillary refill, radial pulse. Absent: vascular compromise Neurological exam: Present: alert, oriented X3 Psychiatric exam: Present: normal affect, normal mood Skin exam: Present: warm, dry, intact, normal color. Absent: rash Course Vital Signs 04/11/25 14:22 Temperature 98.1 F Pulse Rate 98 Respiratory 17 Rate Blood Pressure 152/108 O2 Sat by Pulse 98 Oximetry Medical Decision Making - Medical Decision Making Was pt. sent in by a medical professional or institution (EB Clemons, TRANSIT DEPARTMENT CLERK, urgent care, hospital, or snf...) When possible be specific @ -No Did you speak to anyone other than the patient for history (EMS, parent, family, police, friend...)? What history was obtained from this source @ -No Did you review nursing and triage notes (agree or disagree)? Why? @ -I reviewed and agree with nursing and triage notes Were old charts reviewed (outside hosp., previous admission, EMS record, old EKG, old radiological studies, urgent care reports/EKG's, snf records)? Report findings @ -No old charts were reviewed Differential Diagnosis (chest pain, altered mental status, abdominal pain women, abdominal pain men, vaginal bleeding, weakness, fever, dyspnea, syncope, headache, dizziness, GI bleed, back pain, seizure, CVA, palpatations, mental health, musculoskeletal)? @ -Not applicable EKG interpreted by me (3pts min.). @ -As above X-rays interpreted by me (1pt min.). @ -None done CT interpreted by me (1pt min.). @ -None done U/S interpreted by me (1pt. min.). @ -None done What testing was considered but not performed or refused? (CT, X-rays, U/S, labs)? Why? @ -None What meds were considered but not given or refused? Why? @ -None Did you discuss the management of the patient with other professionals (professionals i.e. [facility] Clemons, TRANSIT DEPARTMENT CLERK, lab, RT, psych nurse, social media marketing manager, broke handler, teacher, executive vice president and chief operating officer, case briefer)? Give summary @ -No Was smoking cessation discussed for >3mins.? @ -No Was critical care preformed (if so, how long)? @ -No Were there social determinants of health that impacted care today? How? (Homelessness, low income, unemployed, alcoholism, drug addiction, transportation, low edu. Level, literacy, decrease access to med. care, senior care, rehab)? @ -No Was there de-escalation of care discussed even if they declined (Discuss DNR or withdrawal of care, Hospice)? DNR status @ -No What co-morbidities impacted this encounter? (DM, HTN, Smoking, COPD, CAD, Cancer, CVA, ARF, Chemo, Hep., AIDS, mental health diagnosis, sleep apnea, morbid obesity)? @ -None Was patient admitted / discharged? Hospital course, mention meds given and route, prescriptions, significant lab abnormalities, going to OR and other pertinent info. @ -Discharge. 59-year-old female requesting for wound change of right port. No sign of bacterial infection. No red flag symptoms. No other complaints at this time. By the time of my initial evaluation, RN had already performed dressing change and patient is grateful and states she would like to be discharged. Appropriate return precautions and follow-up care discussed. Case was discussed with my ED attending Dr. Leigh. patient did elope from the emergency room before discharge papers were given. Undiagnosed new problem with uncertain prognosis? @ -No Drug Therapy requiring intensive monitoring for toxicity (Heparin, Nitro, Insulin, Cardizem)? @ -No Were any procedures done? @ -No Diagnosis/symptom? @ -Dressing change of right upper extremity port Acute, or Chronic, or Acute on Chronic? @ -Acute Uncomplicated (without systemic symptoms) or Complicated (systemic symptoms)? @ -Uncomplicated Side effects of treatment? @ -No Exacerbation, Progression, or Severe Exacerbation? @ -No Poses a threat to life or bodily function? How? (Chest pain, USA, VT, pneumonia, PE, COPD, DKA, ARF, appy, cholecystitis, CVA, Diverticulitis, Homicidal, Suicidal, threat to staff... and all critical care pts) @ -No Disposition Clinical Impression: Port-A-Cath in place Disposition: HOME SELF-CARE Condition: Stable Additional Instructions: Please return to the Emergency Department if symptoms worsen or any other concerns. Is patient prescribed a controlled substance at d/c from ED?: No Referrals: Inna Crespo MD [Primary Care Provider] - 1-2 days Time of Disposition: 16:03
== END 2025-04-11 16:11 | disposition home or self-care (01) ==
LOC: EC 14:20
DX: Z45.2 Encounter for adjustment and management of vascular access device (principal); F17.200 Nicotine dependence, unspecified, uncomplicated; Z88.1 Allergy status to other antibiotic agents; Z88.2 Allergy status to sulfonamides; Z88.8 Allergy status to other drugs, medicaments and biological substances
CPT/HCPCS: 99283

== ENCOUNTER 2025-04-18 06:14 | Day surgery (SDC) | payer OTHER ==
[2025-04-17 13:51] VITALS: BMI 27.8
[2025-04-18 06:48] VITALS: BP 131/110; PULSE 80; RESP 16; TEMP 98.5
[2025-04-18] MEDS: AMPICILLIN-SULBACTAM 3 GM in SODIUM CHLORIDE 0.9% 100 ML IVPB SCH (07:31)
== END 2025-04-18 08:07 | disposition home or self-care (01) ==
LOC: CATHCVL 06:14
PROVIDERS: ATTEND Internal Medicine Infectious Disease
DX: H60.91 Unspecified otitis externa, right ear (principal); J44.9 Chronic obstructive pulmonary disease, unspecified; G89.29 Other chronic pain; K21.9 Gastro-esophageal reflux disease without esophagitis; F32.A Depression, unspecified; F41.9 Anxiety disorder, unspecified; Z79.82 Long term (current) use of aspirin; Z79.899 Other long term (current) drug therapy; Z90.49 Acquired absence of other specified parts of digestive tract; Z90.710 Acquired absence of both cervix and uterus
CPT/HCPCS: 36410; 76937; J0295